=== PATIENT | male | born 1945 | race Caucasian/White ===

== ENCOUNTER 2016-11-20 09:33 | Emergency (ER) | payer MEDICARE, OTHER ==
[~2016-11-20] VITALS: Ht 172.7 cm; Wt 75.7 kg
[~2016-11-20 09:33] MED LIST: AC500T PO; ALLERGY SHOTS INJ; ASPI-875 PO; CETI10TA17 PO; D ME PO; DCS100C PO; DICY10CA12 PO; DIPH25TA82 PO; ENAL10TA PO; EZET10TA5 PO; FLUT16SP22 NSEACH; IBUP-30 PO; MELA1TAB16 PO; METF-380 PO; METO25TA2 PO; NS.65NA45 NSEACH; OMEP20CA12 PO; SULF1TAB34 PO; ZOLP10TA5 PO; [UNRECOGNIZED DRUG - OTHER] INJ; [UNRECOGNIZED DRUG - OTHER] NS; [UNRECOGNIZED DRUG - OTHER] PO
[2016-11-20 10:00] LABS: BASOPHILS % (AUTO) 0 % (0-10); EOSINOPHILS # (AUTO) 0.1 10^3/uL (0.0-0.3); EOSINOPHILS % (AUTO) 1 % (0-10); LYMPHOCYTES # (AUTO) 0.9 X 10^3 (1.0-4.0); LYMPHOCYTES % (AUTO) 11 % (12-44); MEAN CORPUSCULAR HEMOGLOBIN 25 PG (25-34); MEAN CORPUSCULAR HGB CONC 32 G/DL (32-36); MEAN CORPUSCULAR VOLUME 78 FL (80-99); MEAN PLATELET VOLUME 11.4 FL (7.4-10.4); MONOCYTES # (AUTO) 0.8 X 10^3 (0.0-1.0); MONOCYTES % (AUTO) 9 % (0-12); NEUTROPHILS # (AUTO) 6.7 X 10^3 (1.8-7.8); NEUTROPHILS % (AUTO) 79 % (42-75); PLATELET COUNT 185 10^3/uL (130-400); RED BLOOD COUNT 4.48 10^6/uL (4.35-5.85); RED CELL DISTRIBUTION WIDTH 16.1 % (10.0-14.5); WHITE BLOOD COUNT 8.5 10^3/uL (4.3-11.0)
[2016-11-20] MEDS ORDERED: fentaNYL INJECTION 100 MCG/2 ML AMP IVP ONE (10:00)
[2016-11-20 10:01] LABS: KETONES,URINE 1+ (NEGATIVE); LEUKOCYTE ESTERASE ,URINE 1+ (NEGATIVE); NITRITE,URINE NEGATIVE (NEGATIVE); PH,URINE 5 (5-9); PROTEIN,URINE 2+ (NEGATIVE); UROBILINOGEN,URINE 1 MG/DL (NORMAL)
[2016-11-20 10:22] LABS: ALBUMIN 4.4 G/DL (3.2-4.5); BILIRUBIN,TOTAL 0.4 MG/DL (0.1-1.0); CALCIUM 9.2 MG/DL (8.5-10.1); CREATININE SERUM 1.31 MG/DL (0.60-1.30); POTASSIUM 4.9 MMOL/L (3.6-5.0); TOTAL PROTEIN 6.7 G/DL (6.4-8.2)
[2016-11-20] MEDS ORDERED: NS IV 1000 ML 1,000 ML IV ONE (10:26)
[2016-11-20 10:29] LABS: BILIRUBIN,URINE 1+ (NEGATIVE); WBC,URINE 0-2 /HPF
[2016-11-20 10:30] LABS: HYALINE CASTS, URINE 0-2 /LPF; SQUAMOUS EPITHELIAL CELL,UR 0-2 /HPF
[2016-11-20] MEDS ORDERED: KETOROLAC 30 MG/ML VIAL IVP ONE (10:45)
--- NOTE | 2016-11-20 11:47 | Diagnostic Imaging Report ---
PROCEDURE: CT urinary tract, rule out kidney stone. TECHNIQUE: Multiple contiguous axial images were obtained through the abdomen and pelvis without the use of intravenous contrast. INDICATION: Left flank pain, hematuria. COMPARISON: 01/08/2012. DISCUSSION: The visualized lung bases are unremarkable. Normal heart size. No pleural or pericardial fluid. The gallbladder is contracted. The liver, stomach, pancreas, spleen, and adrenal glands are unremarkable. Large left renal cyst appears grossly stable though incompletely evaluated due to lack of IV contrast. Interval development of nonobstructing left renal calculi measuring up to 4 mm. Mild left hydronephrosis and hydroureter secondary to a 2 mm partially obstructing stone at the left ureterovesical junction. Urinary bladder is mostly decompressed. No hydronephrosis on the right. Right parapelvic cysts are stable. No ascites or pathologically enlarged lymph nodes identified. Sigmoid diverticulosis is stable. No CT evidence for diverticulitis. No obstruction or free air. Atherosclerotic plaques again noted throughout the abdominal aorta. No acute osseous abnormality. IMPRESSION: 1. 2 mm partially obstructing stone within the left ureterovesical junction contributing to mild left hydronephrosis and hydroureter. 2. Additional nonobstructing left renal calculi measuring up to 4 mm. 3. Diverticulosis. Dictated by: Dictated on workstation # [id number]
--- NOTE | 2016-11-20 12:13 | Diagnostic Imaging Report ---
EXAMINATION: KUB. INDICATION: Left-sided kidney stone. COMPARISON: 01/08/2012. FINDINGS: There is a 6 mm left flank calcification, compatible with a left kidney stone. A tiny distal left ureteric stone may correlate with a 2 mm density seen on the left side of the pelvis. The right flank and right ureteric course demonstrate no definite stone. IMPRESSION: There is a 6 mm left kidney stone. A 2 mm calcification on the left side of the pelvis probably correlates with the distal ureteric stone seen on the concurrent CT scan. Dictated by: Dictated on workstation # [id number]
[2016-11-20] MEDS ORDERED: OXYC-197 PO (12:16)
--- NOTE | 2016-11-20 12:16 | ED General ---
General Chief Complaint: Back Problems Stated Complaint: LEFT FLANK PAIN Nursing Triage Note: L FLANK PAIN ONSET 0330 THIS AM, SIMILAR TO PREVIOUS KIDNEY STONES Nursing Sepsis Screen: No Definite Risk Source of Information: Patient Exam Limitations: No Limitations History of Present Illness Time Seen by Provider: 09:40 Initial Comments This 71-year-old gentleman presents to the emergency room with left flank pain that started around 03:00. He has a history of renal stones. He took hydrocodone 2 without much improvement. He has appointment with Dr. Rockwell later today but pain was too intense to wait. He has had some recent weakness as well. No fever. No urinary changes. Denies nausea or vomiting. Allergies and Home Medications Allergies Coded Allergies: Levofloxacin (Verified Allergy, 05/06/13) Sjmedpp-Xek-Ikf Reductase Inhibitor (Verified Allergy, 05/06/13) metoclopramide HCl (Verified Allergy, 05/06/13) Home Medications Acetaminophen 500 Mg Tablet 1,000 MG PO BID PRN PRN (Reported) TAKES 2 (500MG) TABLETS TWICE DAILY NEEDED FOR PAIN Aspirin 81 Mg Tablet.dr 81 MG PO HS (Reported) Cephalexin 500 Mg Capsule #30 500 MG PO TID Prescribed by: ARLENE SMITH on 11/20/16 1228 Dicyclomine Hcl 10 Mg Capsule 10 MG PO QID PRN PRN (Reported) NEEDED FOR GASTRO PARESIS Docusate Sodium 100 Mg Capsule 100 MG PO QID PRN PRN (Reported) NEEDED FOR CONSTIPATION Enalapril Maleate 10 Mg Tablet 5 MG PO BID (Reported) Ezetimibe 10 Mg Tablet 10 MG PO HS (Reported) Fluticasone Propionate 16 Gm Naspr 1 SPRAY NSEACH BID (Reported) Ibuprofen 200 Mg Tablet 600 MG PO TID PRN PRN (Reported) TAKES UP TO 3 (200MG) TABLETS THREE TIMES DAILY NEEDED FOR PAIN Melatonin/Pyridoxine Hcl (B6) 1 Each Tablet 10 MG PO HS PRN PRN (Reported) TAKES 2 (5MG) TABLETS AT BEDTIME NEEDED FOR SLEEP Metformin Hcl 1,000 Mg Tablet 500 MG PO BID (Reported) TAKES 1/2 (1000MG) TABLET TWICE DAILY Omeprazole 20 Mg Capsule.dr 40 MG PO BID (Reported) Oxycodone HCl/Acetaminophen 1 Each Tablet #10 1-2 EACH PO Q6H PRN PRN PAIN Prescribed by: ARLENE SMITH on 11/20/16 1216 Sodium Chloride 45 Ml Btl 2 SPRAY NSEACH QID PRN PRN (Reported) NEEDED FOR DRYNESS Constitutional: see HPI EENTM: no symptoms reported Respiratory: no symptoms reported Cardiovascular: no symptoms reported Gastrointestinal: no symptoms reported Genitourinary: see HPI Musculoskeletal: no symptoms reported Skin: no symptoms reported Psychiatric/Neurological: No Symptoms Reported Hematologic/Lymphatic: No Symptoms Reported Past Kyctmkg-Qwyvks-Ukawhc Hx Patient Social History Alcohol Use: Denies Use Recreational Drug Use: No Smoking Status: Never a Smoker Recent Foreign Travel: No Contact w/Someone Who Travel: No Recent Infectious Disease Expo: No Recent Hopitalizations: No Physical Abuse Screen: No Sexual Abuse: No Immunizations Up To Date Date of Pneumonia Vaccine: May 01, 2013 Date of Influenza Vaccine: Aug 04, 2012 Surgeries HX Surgeries: Yes (TURP,SLEEP APNEA,SINUS SURGERY-INVERTED PAPALOMA, COLONOSCOPY) Surgeries: CABG, Orthopedic Respiratory Hx Respiratory Disorders: Yes Respiratory Disorders: Sleep Apnea Cardiovascular Hx Cardiac Disorders: Yes (CABG,STENTS) Cardiac Disorders: Coronary Artery Disease, Hypertension Neurological Hx Neurological Disorders: No Reproductive System Hx Reproductive Disorders: No Genitourinary Hx Genitourinary Disorders: Yes Genitourinary Disorders: Kidney Stones Gastrointestinal Hx Gastrointestinal Disorders: Yes (gastroperesis, ) Gastrointestinal Disorders: Irritable Bowel Musculoskeletal Hx Musculoskeletal Disorders: No Endocrine Hx Endocrine Disorders: Yes HEENT HX ENT Disorders: No Cancer Hx Cancer: No Psychosocial Hx Psychiatric Problems: No Integumentary HX Skin/Integumentary Disorder: No Blood Transfusions Hx Blood Disorders: No Adverse Reaction to a Blood Tr: No Physical Exam Vital Signs Vital Sign - Last 12Hours 11/20/16 09:34 Temp 96.5 Pulse 60 Resp 18 B/P 119/74 Pulse Ox 99 Capillary Refill : Less Than 3 Seconds General Appearance: No Apparent Distress WD/WN HEENT: PERRL/EOMI Normal ENT Inspection Neck: Normal Inspection Respiratory: Lungs Clear Normal Breath Sounds No Accessory Muscle Use No Respiratory Distress Cardiovascular: Regular Rate, Rhythm No Edema No Murmur Gastrointestinal: Normal Bowel Sounds Soft Tenderness (Flank) Back: Normal Inspection No CVA Tenderness Extremity: Normal Inspection No Pedal Edema Neurologic/Psychiatric: Alert Oriented x3 No Motor/Sensory Deficits Normal Mood/Affect cookie padder II-XII Norm as Tested Skin: Normal Color Warm/Dry Progress/Results/Core Measures Results/Orders Lab Results Laboratory Tests Test 11/20/16 09:40 11/20/16 09:52 Range/Units Alanine Aminotransferase (ALT/SGPT) 18 0-55 U/L Albumin 4.4 3.2-4.5 G/DL Alkaline Phosphatase 47 40-136 U/L Anion Gap 12 5-14 MMOL/L Aspartate Amino Transf (AST/SGOT) 13 5-34 U/L BUN/Creatinine Ratio 13 Basophils # (Auto) 0.0 0.0-0.1 10^3/uL Basophils (%) (Auto) 0 0-10 % Blood Urea Nitrogen 17 7-18 MG/DL Calcium Level 9.2 8.5-10.1 MG/DL Carbon Dioxide Level 22 21-32 MMOL/L Chloride Level 103 98-107 MMOL/L Creatinine 1.31 H 0.60-1.30 MG/DL Eosinophils # (Auto) 0.1 0.0-0.3 10^3/uL Eosinophils (%) (Auto) 1 0-10 % Estimat Glomerular Filtration Rate 54 Glucose Level 187 H 70-105 MG/DL Hematocrit 35 L 40-54 % Hemoglobin 11.2 L 13.3-17.7 G/DL Lymphocytes # (Auto) 0.9 L 1.0-4.0 X 10^3 Lymphocytes (%) (Auto) 11 L 12-44 % Mean Corpuscular Hemoglobin 25 25-34 PG Mean Corpuscular Hemoglobin Concent 32 32-36 G/DL Mean Corpuscular Volume 78 L 80-99 FL Mean Platelet Volume 11.4 H 7.4-10.4 FL Monocytes # (Auto) 0.8 0.0-1.0 X 10^3 Monocytes (%) (Auto) 9 0-12 % Neutrophils # (Auto) 6.7 1.8-7.8 X 10^3 Neutrophils (%) (Auto) 79 H 42-75 % Platelet Count 185 130-400 10^3/uL Potassium Level 4.9 3.6-5.0 MMOL/L Red Blood Count 4.48 4.35-5.85 10^6/uL Red Cell Distribution Width 16.1 H 10.0-14.5 % Sodium Level 137 135-145 MMOL/L Total Bilirubin 0.4 0.1-1.0 MG/DL Total Protein 6.7 6.4-8.2 G/DL White Blood Count 8.5 4.3-11.0 10^3/uL Urine Bacteria TRACE /HPF Urine Bilirubin 1+ H NEGATIVE Urine Casts PRESENT /LPF Urine Clarity SLIGHTLY CLOUDY Urine Color YELLOW Urine Crystals NONE /LPF Urine Culture Indicated NO Urine Glucose (UA) 2+ H NEGATIVE Urine Hyaline Casts 0-2 H /LPF Urine Ketones 1+ H NEGATIVE Urine Leukocyte Esterase 1+ H NEGATIVE Urine Mucus MODERATE H /LPF Urine Nitrite NEGATIVE NEGATIVE Urine Protein 2+ H NEGATIVE Urine RBC >100 H /HPF Urine RBC (Auto) 5+ H NEGATIVE Urine Specific Orange 1.025 H 1.016-1.022 Urine Squamous Epithelial Cells 0-2 /HPF Urine Urobilinogen 1 NORMAL MG/DL Urine WBC 0-2 /HPF Urine pH 5 5-9 My Orders Orders-ARLENE QUEZADA MD Ua Culture If Indicated (11/20/16 09:44) Fentanyl Injection (Sublimaze Injection (11/20/16 10:00) Cbc With Automated Diff (11/20/16 09:55) Comprehensive Metabolic Panel (11/20/16 09:55) Ns Iv 1000 Ml (Sodium Chloride 0.9%) (11/20/16 10:26) Ct Abd/Pelvis Wo(Kidney Stone) (11/20/16 10:38) Ketorolac Injection (Toradol Injection) (11/20/16 10:45) Abdomen/Kub 1view (11/20/16 11:46) Medications Given in ED Vital Signs/I&O Blood Pressure Mean: 89 Progress Note : Progress Note Patient was initially treated with fentanyl. A liter of IV fluids was initiated. UA returned with a large quantity of RBC. CT scan was ordered revealing a small distal left ureteral stone. Patient was additionally treated with Toradol. Dr. Rockwell stop by the patient's room to visit with him. Diagnostic Imaging Diagonstic Imaging: CT Plain Films/CT/US/NM/MRI: abdomen, pelvis Comments CT abdomen and pelvis viewed by me and report reviewed. See report below: NAME: [facility] REC#: [id number] PT STATUS: REG ER : 1945 PHYSICIAN: ARLENE QUEZADA MD ADMIT DATE: 11/20/16/ER Draft Date of Exam:11/20/16 CT ABD/PELVIS WO(KIDNEY STONE) PROCEDURE: CT urinary tract, rule out kidney stone. TECHNIQUE: Multiple contiguous axial images were obtained through the abdomen and pelvis without the use of intravenous contrast. INDICATION: Left flank pain, hematuria. COMPARISON: 01/08/2012. DISCUSSION: The visualized lung bases are unremarkable. Normal heart size. No pleural or pericardial fluid. The gallbladder is contracted. The liver, stomach, pancreas, spleen, and adrenal glands are unremarkable. Large left renal cyst appears grossly stable though incompletely evaluated due to lack of IV contrast. Interval development of nonobstructing left renal calculi measuring up to 4 mm. Mild left hydronephrosis and hydroureter secondary to a 2 mm partially obstructing stone at the left ureterovesical junction. Urinary bladder is mostly decompressed. No hydronephrosis on the right. Right parapelvic cysts are stable. No ascites or pathologically enlarged lymph nodes identified. Sigmoid diverticulosis is stable. No CT evidence for diverticulitis. No obstruction or free air. Atherosclerotic plaques again noted throughout the abdominal aorta. No acute osseous abnormality. IMPRESSION: 1. 2 mm partially obstructing stone within the left ureterovesical junction contributing to mild left hydronephrosis and hydroureter. 2. Additional nonobstructing left renal calculi measuring up to 4 mm. 3. Diverticulosis. Dictated on workstation # [id number] Dict: 11/20/16 1137 Trans: 11/20/16 1146 [facility] [id number] Interpreted by: DELMY BARBOZA MD Departure Impression Impression: Primary Impression: Left ureteral stone Additional Impressions: Left flank pain Hydronephrosis, left Disposition: HOME, SELF-CARE Condition: Improved Departure-Patient Inst. Decision time for Depature: 12:00 Referrals: LYNETTE CONWAY DO (PCP/Family) Primary Care Physician Patient Instructions: Kidney Stones in Adults Add. Discharge Instructions: Drink plenty of clear liquids. Complete your antibiotic as prescribed to prevent infection. You may use the hydrocodone previously prescribed to you or replaced with Percocet as prescribed. Return to the ER if symptoms worsen. Strain your urine and present any stones collected to your urologist. You may follow-up with Dr. Rockwell or the urologist of your choice. All discharge instructions reviewed with patient and/or family. Voiced understanding. Scripts Cephalexin (Keflex)500 Mg [id number] Mg PO TID #30 CAP Prov:ARLENE QUEZADA MD 11/20/16 Oxycodone HCl/Acetaminophen (Percocet 5-325 mg Tablet)1 Each Tablet1-2 Each PO Q6H PRN PAIN #10 TAB Prov:ARLENE QUEZADA MD 11/20/16 ARLENE QUEZADA MD Nov 20, 2016 12:16 ARLEEN QUEZADA MD Nov 20, 2016 12:16
[2016-11-20 12:27] VITALS: BP 113/65
[2016-11-20] MEDS ORDERED: CEPH-507 PO (12:28)
== END 2016-11-20 12:27 | disposition home or self-care (01) ==
LOC: EDUNIT# 09:33 → ER 09:35
DX: N13.2 Hydronephrosis with renal and ureteral calculous obstruction (principal); K57.30 Diverticulosis of large intestine without perforation or abscess without bleeding; E11.9 Type 2 diabetes mellitus without complications; Z79.82 Long term (current) use of aspirin; Z79.899 Other long term (current) drug therapy; Z79.84 Long term (current) use of oral hypoglycemic drugs; Z95.1 Presence of aortocoronary bypass graft; Z95.5 Presence of coronary angioplasty implant and graft
CPT/HCPCS: 36415; 74000; 74176; 80053; 81000; 85025; 96361; 96374; 96375

== ENCOUNTER → 2017-01-24 | Outpatient (CLI) | payer MEDICARE, OTHER ==
[~2017-01-24] MED LIST changes: +CEPH-507 PO; +CLOP75TA28 PO; +DOXA4TAB2 PO; +ESCI10TA55 PO; +ESZO3TAB38 PO; +LORA1TAB59 PO; +METF1000 PO; +OXYC-197 PO; +PANT40TA3 PO; +PRAV20TA3 PO
--- NOTE | 2017-01-27 13:15 | ECHOCARDIOGRAPHY REPORT ---
PROCEDURE PHYSICIAN: APRIL STEVENS DATE OF PROCEDURE: 01/24/2017 TWO DIMENSIONAL ECHOCARDIOGRAM REPORT PRIMARY PHYSICIAN: Dr. Dent OTHER PHYSICIAN: REFERRING PHYSICIAN: ORDERING PHYSICIAN: Dr. Stevens INDICATION FOR THE PROCEDURE: Tiredness, coronary artery disease, shortness of breath MEASUREMENTS DERIVED VALUES LV DIAMETER (LAX) NORMALS NORMALS Diastolic 4.1 (3.6-5.2) Eject. Fract. (60%+/-6%) Systolic (2.3-3.9) Diastolic Vol. % Shortening (0.22-0.42) Systolic Vol. Aortic Root 3.6 IVS THICKNESS Diastolic 1.2 (0.6-1.1) LVPW THICKNESS Diastolic 1.2 (0.6-1.1) LA DIAMETER Systolic 4.2 (2.1-3.7) DESCRIPTION: Two-dimension echocardiography shows well preserved global left ventricular systolic function with an ejection fraction of approximately 55 to 60%. Aortic, mitral and tricuspid valve leaflets show good leaflet excursion. There is no significant pericardial effusion. Doppler imaging shows trivial pulmonic and tricuspid regurgitation. Pulmonary artery systolic pressure is estimated to be approximately 25 to 30 mmHg. There is also trivial to mild mitral regurgitation. There is no Doppler evidence of any significant valvular stenosis. There is no evidence of any significant intracardiac shunt on this transthoracic echocardiographic study. Inferior vena cava is of normal size and exhibits normal inspiratory collapse. CONCLUSION: 1. Normal global left ventricular systolic function with an ejection fraction of 55 to 60%. 2. Mild to moderate enlargement of the left atrium. 3. Trivial to mild mitral, tricuspid and pulmonic regurgitation. 4. Pulmonary artery systolic pressure is estimated to be 25 to 30 mmHg. 5. No evidence of any significant valvular stenosis. Job ID: [id number] Dictated Date: 01/26/2017 12:06:34 Research Epidemiologist Date: 01/27/2017 13:08:26 / ashwin
== END ==
LOC: CARD 11:35
PROVIDERS: ATTEND Internal Medicine Cardiovascular Disease
DX: R53.83 Other fatigue (principal); R06.02 Shortness of breath; I25.10 Atherosclerotic heart disease of native coronary artery without angina pectoris; I65.23 Occlusion and stenosis of bilateral carotid arteries; E11.9 Type 2 diabetes mellitus without complications; K21.9 Gastro-esophageal reflux disease without esophagitis; E78.4 Other hyperlipidemia; G47.33 Obstructive sleep apnea (adult) (pediatric)
CPT/HCPCS: 93306

== ENCOUNTER → 2017-01-29 | Outpatient (CLI) | payer MEDICARE, OTHER ==
[~2017-01-29] MED LIST changes: +CATHETER FLUSH 10 ML SYR IV PRN
[2017-01-29 08:56] VITALS: BP 112/69
--- NOTE | 2017-01-30 08:42 | STRESS TEST ---
PROCEDURE PHYSICIAN: APRIL STEVENS DATE OF PROCEDURE: 01/29/2017 RESTING AND POST EXERCISE TECHNETIUM 99M TETROFOSMIN SPECT CT IMAGING ORDERING PHYSICIAN: Dr. Stevens. PRIMARY PHYSICIAN: Dr. Dent. CLINICAL DIAGNOSES: 1. Coronary artery disease. 2. Diabetes. 3. Tiredness. Baseline images were carried out after injection of 10.91 mCi technetium 99m tetrofosmin. This was followed by exercise on a treadmill. Duglas protocol was employed. Heart rate and blood pressure responses to exercise were normal. At peak exercise, there is considerable baseline artifact but there does not appear to be significant ST segment depression. After the patient had attained more than 85% of maximum predicted heart rate, 29.8 mCi of technetium 99m tetrofosmin were injected and the exercise was continued for another minute. The test was stopped on account of fatigue. He did not report symptoms. There was no significant exercise-induced arrhythmia. Review of images at rest and following stress, does not indicate any significant perfusion defects consistent with significant myocardial ischemia or infarction. Gated images show normal global left ventricular systolic function with normal regional wall motion. Left ventricular ejection fraction is calculated to be 63%. Left ventricular end-diastolic volume is 55 mL. TID is absent (0.96). CONCLUSIONS: 1. No evidence of any significant myocardial ischemia or infarction on this study. 2. Normal regional wall motion. 3. Normal global left ventricular systolic function with a calculated ejection fraction of 63%. 4. Normal left ventricular cavity size. Job ID: [id number] Dictated Date: 01/29/2017 17:21:57 Drill Rig Operator Date: 01/30/2017 08:37:22 / harley
== END ==
LOC: CARD 07:16
PROVIDERS: ATTEND Internal Medicine Cardiovascular Disease
DX: R06.02 Shortness of breath (principal); I25.10 Atherosclerotic heart disease of native coronary artery without angina pectoris; I65.23 Occlusion and stenosis of bilateral carotid arteries; E78.4 Other hyperlipidemia; E11.9 Type 2 diabetes mellitus without complications; R53.83 Other fatigue; K21.9 Gastro-esophageal reflux disease without esophagitis; G47.33 Obstructive sleep apnea (adult) (pediatric)
CPT/HCPCS: 78452; 93017

== ENCOUNTER 2017-03-12 16:58 | Inpatient (IN) | payer MEDICARE, OTHER ==
[~2017-03-12] VITALS: Ht 172.7 cm; Wt 76.0 kg
[2017-03-12] VITALS (13 sets, daily range): BP systolic 143–166; BP diastolic 81–95
[~2017-03-12 16:58] MED LIST changes: -CATHETER FLUSH 10 ML SYR IV PRN; -CLOP75TA28 PO; -DOXA4TAB2 PO; -ESCI10TA55 PO; -ESZO3TAB38 PO; -LORA1TAB59 PO; -METF1000 PO; -PANT40TA3 PO; -PRAV20TA3 PO
--- NOTE | 2017-03-12 18:05 | ED Neurological Problem ---
General Chief Complaint: Neuro-Stroke Like Symptoms Stated Complaint: STROKE LIKE SYMPTOMS Nursing Triage Note: TO ED PER EMS FROM [facility] . REPORT FROM [facility] IS THAT PATIENT WENT OUT SIDE AROUND 8A WHEN HE WENT BACK IN AT [facility] NOTICED SPEECH GARBLED HE ATE TOOK ASA SHOWERED THAN WENT TO [facility] NOTICED GARBLED SPEECH. BEFORE TRASFER SPEECH RESOLVED. [facility] ALSO REPORTS THAT HGB OF 9.4 AND POSITIVE HEMOCULT. Nursing Sepsis Screen: No Definite Risk Source: patient, family, RN/MD, EMS Exam Limitations: no limitations History of Present Illness Time seen by provider: 17:01 Initial Comments Here as a transfer from [facility] for concerns related to transient ischemic attack and concerns related to the fact that the patient has had 3 g hemoglobin drop. Patient reports that between 11 a.m. and 12 noon today that he had onset of word searching speech. He noted at around that time he felt like that his blood sugar had gotten low. He was outside spraying for weeds and it did not stop him from continuing his activity. His noted at about noon that he had the difficulty with speech. He did take an aspirin and get cleaned up before presenting to [facility] for evaluation. There he was evaluated and had labs, CT and chest x-ray done. No acute findings noted on CT or chest x-ray. Labs did note hemoglobin of 9.4 today. Patient reports that over the last week he has had some lower abdominal discomfort and had darker stools. He was Hemoccult positive at outside facility. This challenge to workup as it was likely TIA. He does have recent ultrasound of the carotids but results are unknown. He also has recent ultrasound of the aorta. He denies chest pain, breathing problems, nausea, vomiting or other concerns. There is no focal weakness noted or reported. Timing/Duration: 4-6 hours Severity: mild Associated Symptoms: No confusion, No fever/chills, No loss of consciousness, No nausea/vomiting, No paresthesia, No seizures, No slurred speech, No trouble walking, No vision changes, No weakness Allergies and Home Medications Allergies Coded Allergies: Dfhktry-Aaw-Fto Reductase Inhibitor (Verified Allergy, Unknown, 01/29/17) cephalexin (Verified Allergy, Unknown, 03/12/17) ciprofloxacin (Verified Allergy, Unknown, 03/12/17) citalopram (Verified Allergy, Unknown, 03/12/17) levofloxacin (Verified Allergy, Unknown, 01/29/17) metoclopramide HCl (Verified Allergy, Unknown, 01/29/17) sulfamethoxazole (Verified Allergy, Unknown, 03/12/17) trimethoprim (Verified Allergy, Unknown, 03/12/17) Uncoded Allergies: TRAZDONE (Allergy, Unknown, 03/12/17) Home Medications Acetaminophen 500 Mg Tablet, 1,000 MG PO BID PRN, (Reported) TAKES 2 (500MG) TABLETS TWICE DAILY NEEDED FOR PAIN Aspirin 81 Mg Tablet.dr, 81 MG PO HS, (Reported) Cephalexin 500 Mg Capsule, 500 MG PO TID, #30 Prescribed by: ARLENE SMITH on 11/20/16 1228 Dicyclomine Hcl 10 Mg Capsule, 10 MG PO QID PRN, (Reported) NEEDED FOR GASTRO PARESIS Docusate Sodium 100 Mg Capsule, 100 MG PO QID PRN, (Reported) NEEDED FOR CONSTIPATION Enalapril Maleate 10 Mg Tablet, 5 MG PO BID, (Reported) Ezetimibe 10 Mg Tablet, 10 MG PO HS, (Reported) Fluticasone Propionate 16 Gm Naspr, 1 SPRAY NSEACH BID, (Reported) Ibuprofen 200 Mg Tablet, 600 MG PO TID PRN, (Reported) TAKES UP TO 3 (200MG) TABLETS THREE TIMES DAILY NEEDED FOR PAIN Melatonin/Pyridoxine Hcl (B6) 1 Each Tablet, 10 MG PO HS PRN, (Reported) TAKES 2 (5MG) TABLETS AT BEDTIME NEEDED FOR SLEEP Metformin Hcl 1,000 Mg Tablet, 500 MG PO BID, (Reported) TAKES 1/2 (1000MG) TABLET TWICE DAILY Omeprazole 20 Mg Capsule.dr, 40 MG PO BID, (Reported) Oxycodone HCl/Acetaminophen 1 Each Tablet, 1-2 EACH PO Q6H PRN for PAIN, #10 Prescribed by: ARLENE SMITH on 11/20/16 1216 Sodium Chloride 45 Ml Btl, 2 SPRAY NSEACH QID PRN, (Reported) NEEDED FOR DRYNESS Constitutional: no symptoms reported Eyes: No Symptoms Reported Ears, Nose, Mouth, Throat: no symptoms reported Respiratory: no symptoms reported Cardiovascular: No chest pain, No edema, No palpitations Gastrointestinal: see HPI, abdominal pain, other (dark stools) Genitourinary: no symptoms reported Musculoskeletal: no symptoms reported Skin: no symptoms reported Psychiatric/Neurological: See HPI, Denies Unable to Move Lower Ext, Denies Unable to Move Upper Ext, Denies Weakness Endocrine: No Symptoms Reported All Other Systems Reviewed Negative Unless Noted: Yes Past Dmgqfpx-Fwkehd-Tzmefd Hx Patient Social History Alcohol Use: Denies Use Recreational Drug Use: No Smoking Status: Never a Smoker Recent Infectious Disease Expo: No Recent Hopitalizations: No Immunizations Up To Date Date of Pneumonia Vaccine: May 01, 2013 Date of Influenza Vaccine: Aug 04, 2012 Surgeries HX Surgeries: Yes (TURP,SLEEP APNEA,SINUS SURGERY-INVERTED PAPALOMA, COLONOSCOPY) Surgeries: CABG, Orthopedic Respiratory Hx Respiratory Disorders: Yes Respiratory Disorders: Sleep Apnea Cardiovascular Hx Cardiac Disorders: Yes (CABG,STENTS) Cardiac Disorders: Coronary Artery Disease, Hypertension Neurological Hx Neurological Disorders: No Reproductive System Hx Reproductive Disorders: No Genitourinary Hx Genitourinary Disorders: Yes Genitourinary Disorders: Kidney Stones Gastrointestinal Hx Gastrointestinal Disorders: Yes (gastroperesis, ) Gastrointestinal Disorders: Irritable Bowel Musculoskeletal Hx Musculoskeletal Disorders: No Endocrine Hx Endocrine Disorders: Yes HEENT HX ENT Disorders: No Cancer Hx Cancer: No Psychosocial Hx Psychiatric Problems: No Integumentary HX Skin/Integumentary Disorder: No Blood Transfusions Hx Blood Disorders: No Adverse Reaction to a Blood Tr: No Reviewed Nursing Assessment Reviewed/Agree w Nursing PMH: Yes Family Medical History Significant Family History: No Pertinent Family Hx Physical Exam Vital Signs Vital Sign - Last 12Hours 03/12/17 16:58 Temp 98.2 Pulse 73 Resp 18 B/P (MAP) 158/87 Pulse Ox 98 O2 Delivery Room Air Capillary Refill : Less Than 3 Seconds General Appearance: WD/WN, no apparent distress HEENT: PERRL/EOMI, pharynx normal Neck: full range of motion, supple Respiratory: lungs clear, normal breath sounds Cardiovascular: regular rate, rhythm, no murmur Peripheral Pulses: 2+ Dorsalis Pedis (R), 2+ Left Dors-Pedis (L), 2+ Radial Pulses (R), 2+ Radial Pulses (L) Gastrointestinal: non tender, soft Back: normal inspection, no CVA tenderness, no vertebral tenderness Extremities: non-tender, normal inspection Neurologic/Psychiatric: alert, oriented x 3, No abnormal gait, other (gait steady) Crainal Nerves: normal hearing, normal speech, PERRL Coordination/Gait: normal finger to nose, normal gait Motor/Sensory: no motor deficit, no sensory deficit, no pronator drift Skin: normal color, warm/dry Stroke Onset of Symptoms Date of Onset of Symptoms: March 12, 2017 NIH Stroke Scale Assessment Level of Consciousness: 0=Alert Level of Consciousness-Questio: 0=Answers both month/age LOC Commands: 0=Performs both tasks Gaze: 0=Normal Visual Beavers: 0=No visual loss Facial Movement (Facial Paresi: 0=Normal symmetrical mnt Motor Function-Arms Right: 0=No drift Motor Function-Arms Left: 0=No drift Motor Function-Legs Right: 0=No drift Motor Function-Legs Left: 0=No drift Limb Ataxia: 0=Absent Sensory: 0=Normal:no loss Best Language: 0=No aphasia Dysarthria: 0=Normal Extinction & Inattention: 0=No abnormality Stroke Thrombolytic Exclusion Age 18 or Over: Yes Progress/Results/Core Measures Results/Orders My Orders Vital Signs/I&O Vital Sign - Last 12Hours 03/12/17 16:58 Temp 98.2 Pulse 73 Resp 18 B/P (MAP) 158/87 Pulse Ox 98 O2 Delivery Room Air Blood Pressure Mean: 110 Progress Note : Progress Note Seen and evaluated. Repeat stroke scale done and was 0. Reviewed EKG and labs from [facility]. Hemoglobin 9.4, hematocrit 29.7, white blood cell count 6.4 and platelets 204. Coags in normal range. Chemistries overall normal with creatinine of 1.23, sodium 140, potassium 4.0 and chloride 107. Magnesium 1.8. EKG shows sinus rhythm with normal axis. No evidence of ST elevation WI. I did discuss the case with Dr. PIERCE at 1717. He accepts patient for admission, inpatient status. We will consult Dr. Briones in the morning. EICU will be consulted for overnight management. We will initiate Protonix IV twice a day. MRI of the brain in the morning. Old records for carotids and aortic ultrasound from Dr. Stevens's office will be needed and Dr. Briones is consulted. I did discuss the case with Dr. Hare and he agrees with Protonix and will follow. Patient's current blood pressure is 152/91. Blood pressure management only if BP exceeds 220 systolic or 120 diastolic and can be managed. EICU. All of the findings, concerns and plan discussed with patient and family who agree with plan. Departure Communication Time/Spoke to Admitting Phy: 17:17 Time/Spoke to Consulting Physi: 18:09 Impression Impression: Primary Impression: Transient cerebral ischemia Qualified Codes: G45.9 - Transient cerebral ischemic attack, unspecified Additional Impression: GI bleed Qualified Codes: K92.2 - Gastrointestinal hemorrhage, unspecified Disposition: ADMITTED INPATIENT Condition: Stable Decision to Admit Reason: Admit from ER (General) Decision to Admit/Date: March 12, 2017 Time/Decision to Admit Time: 17:17 Departure-Patient Inst. Referrals: LYNETTE CONWAY DO (PCP/Family) Primary Care Physician TATA MORTON MD March 12, 2017 18:05
[2017-03-12] MEDS ORDERED: CATHETER FLUSH 10 ML SYR IV PRN (19:00)
[2017-03-12] MEDS: NS IV 1000 ML 1,000 ML IV SCH (19:39)
[2017-03-12] MEDS: PANTOPRAZOLE 40 MG/10 ML (PROTONIX) VIAL IV SCH (19:39)
[2017-03-12 20:14] LABS: MAGNESIUM 1.9 MG/DL (1.8-2.4); POTASSIUM 3.9 MMOL/L (3.6-5.0)
[2017-03-12] MEDS: MAGNESIUM 1 GM/100 ML IVPB 100 ML IV SCH (21:03)
[2017-03-12] MEDS: POTASSIUM CL 10MEQ/50ML IVPB 50 ML IV SCH ×2 (21:03→23:51)
[2017-03-12] MEDS: MAGNESIUM 1 GM/D5W 100 ML IVPB IV SCH (21:46)
[2017-03-12] MEDS: POTASSIUM CL 10 MEQ/50 ML IVPB (PRE-MIX) IV SCH ×2 (21:46→21:47)
[2017-03-13] VITALS (27 sets, daily range): BP systolic 103–159; BP diastolic 60–93
[2017-03-13] MEDS ORDERED: SIMETHICONE 40 MG/0.6 ML (MYLICON DROPS) 30 ML BTL PO PRN (02:45)
[2017-03-13] MEDS ORDERED: morphine INJ 4 MG/ML 1 ML (VIAL/SYRINGE) IVP PRN (02:45)
[2017-03-13 04:42] LABS: BASOPHILS % (AUTO) 1 % (0-10); EOSINOPHILS # (AUTO) 0.3 10^3/uL (0.0-0.3); EOSINOPHILS % (AUTO) 5 % (0-10); LYMPHOCYTES # (AUTO) 1.1 X 10^3 (1.0-4.0); LYMPHOCYTES % (AUTO) 21 % (12-44); MEAN CORPUSCULAR HEMOGLOBIN 25 PG (25-34); MEAN CORPUSCULAR HGB CONC 31 G/DL (32-36); MEAN CORPUSCULAR VOLUME 79 FL (80-99); MEAN PLATELET VOLUME 12.6 FL (7.4-10.4); MONOCYTES # (AUTO) 0.7 X 10^3 (0.0-1.0); MONOCYTES % (AUTO) 14 % (0-12); NEUTROPHILS # (AUTO) 3.1 X 10^3 (1.8-7.8); NEUTROPHILS % (AUTO) 59 % (42-75); PLATELET COUNT 177 10^3/uL (130-400); RED BLOOD COUNT 3.37 10^6/uL (4.35-5.85); RED CELL DISTRIBUTION WIDTH 15.4 % (10.0-14.5); WHITE BLOOD COUNT 5.3 10^3/uL (4.3-11.0)
[2017-03-13 04:45] LABS: ALANINE AMINOTRANSFERASE 9 U/L (0-55); ALBUMIN 3.6 G/DL (3.2-4.5); ANION GAP 8 MMOL/L (5-14); ASPARTATE AMINO TRANSFERASE 12 U/L (5-34); BILIRUBIN,TOTAL 0.4 MG/DL (0.1-1.0); BLOOD UREA NITROGEN 23 MG/DL (7-18); BUN/CREATININE RATIO 25; CARBON DIOXIDE 22 MMOL/L (21-32); CHLORIDE 111 MMOL/L (98-107); CREATININE SERUM 0.91 MG/DL (0.60-1.30); GFR ESTIMATED > 60; GLUCOSE 91 MG/DL (70-105); MAGNESIUM 2.1 MG/DL (1.8-2.4); PHOSPHORUS 3.6 MG/DL (2.3-4.7); POTASSIUM 4.1 MMOL/L (3.6-5.0); SODIUM 141 MMOL/L (135-145); TOTAL PROTEIN 5.6 G/DL (6.4-8.2)
[2017-03-13] MEDS: MAGNESIUM 1 GM/100 ML IVPB 100 ML IV SCH (05:13)
[2017-03-13] MEDS: POTASSIUM CL 10MEQ/50ML IVPB 50 ML IV SCH (05:13)
[2017-03-13] MEDS: KCL 20 MEQ TAB (K-DUR) PO SCH (05:14)
[2017-03-13] MEDS: NS IV 1000 ML 1,000 ML IV SCH (05:37)
[2017-03-13] MEDS ORDERED: NS IV 1000 ML 1,000 ML IV SCH ×2 (05:45)
[2017-03-13 06:26] LABS: ALBUMIN 3.4 G/DL (3.2-4.5)
[2017-03-13 06:28] LABS: INR 1.1 (0.8-1.4); PROTHROMBIN TIME PATIENT 14.3 SEC (12.2-14.7)
--- NOTE | 2017-03-13 06:29 | Pulmonary Consultation ---
History of Present Illness History of Present Illness Date of Consultation 03/13/17 06:24 Date of Admission History of Present Illness 71yo transferred here from [facility] secondary to suspected TIA and GIB. Pt had a 3g drop in hb while at [place]. Pt was having difficulty speaking which appeared to be getting worse. CT of head was negative. Pt has been having dark stool. While in the ICU patient became hypotensive and required several fluid boluses and blood transfusion. I am consulted for ICU management. Allergies and Home Medications Allergies Coded Allergies: Lmrkafu-Bjc-Zzz Reductase Inhibitor (Verified Allergy, Unknown, 01/29/17) cephalexin (Verified Allergy, Unknown, 03/12/17) ciprofloxacin (Verified Allergy, Unknown, 03/12/17) citalopram (Verified Allergy, Unknown, 03/12/17) levofloxacin (Verified Allergy, Unknown, 01/29/17) metoclopramide HCl (Verified Allergy, Unknown, 01/29/17) sulfamethoxazole (Verified Allergy, Unknown, 03/12/17) trimethoprim (Verified Allergy, Unknown, 03/12/17) Uncoded Allergies: TRAZDONE (Allergy, Unknown, 03/12/17) Home Medications Acetaminophen 500 Mg Tablet, 1,000 MG PO BID PRN, (Reported) TAKES 2 (500MG) TABLETS TWICE DAILY NEEDED FOR PAIN Aspirin 81 Mg Tablet.dr, 81 MG PO HS, (Reported) Cephalexin 500 Mg Capsule, 500 MG PO TID, #30 Prescribed by: ARLENE SMITH on 11/20/16 1228 Dicyclomine Hcl 10 Mg Capsule, 10 MG PO QID PRN, (Reported) NEEDED FOR GASTRO PARESIS Docusate Sodium 100 Mg Capsule, 100 MG PO QID PRN, (Reported) NEEDED FOR CONSTIPATION Enalapril Maleate 10 Mg Tablet, 5 MG PO BID, (Reported) Ezetimibe 10 Mg Tablet, 10 MG PO HS, (Reported) Fluticasone Propionate 16 Gm Naspr, 1 SPRAY NSEACH BID, (Reported) Ibuprofen 200 Mg Tablet, 600 MG PO TID PRN, (Reported) TAKES UP TO 3 (200MG) TABLETS THREE TIMES DAILY NEEDED FOR PAIN Melatonin/Pyridoxine Hcl (B6) 1 Each Tablet, 10 MG PO HS PRN, (Reported) TAKES 2 (5MG) TABLETS AT BEDTIME NEEDED FOR SLEEP Metformin Hcl 1,000 Mg Tablet, 500 MG PO BID, (Reported) TAKES 1/2 (1000MG) TABLET TWICE DAILY Omeprazole 20 Mg Capsule.dr, 40 MG PO BID, (Reported) Oxycodone HCl/Acetaminophen 1 Each Tablet, 1-2 EACH PO Q6H PRN for PAIN, #10 Prescribed by: ARLENE SMITH on 11/20/16 1216 Sodium Chloride 45 Ml Btl, 2 SPRAY NSEACH QID PRN, (Reported) NEEDED FOR DRYNESS Past Kxfiipy-Ehgurr-Dqiwfx Hx Patient Social History Alcohol Use: Denies Use Recreational Drug Use: No Smoking Status: Never a Smoker Recent Foreign Travel: No Contact w/Someone Who Travel: No Recent Infectious Disease Expo: No Recent Hopitalizations: No Physical Abuse Screen: No Sexual Abuse: No Immunizations Up To Date PED Vaccines UTD: No Date of Pneumonia Vaccine: May 01, 2013 Date of Influenza Vaccine: Aug 04, 2012 Seasonal Allergies Seasonal Allergies: Yes (had shots for 5 years) Surgeries HX Surgeries: Yes (TURP,SLEEP APNEA,SINUS SURGERY-INVERTED PAPALOMA, COLONOSCOPY) Surgeries: CABG, Orthopedic Respiratory Hx Respiratory Disorders: Yes Respiratory Disorders: Sleep Apnea Cardiovascular Hx Cardiac Disorders: Yes (CABG,STENTS) Cardiac Disorders: Coronary Artery Disease, Hypertension Neurological Hx Neurological Disorders: No Reproductive System Hx Reproductive Disorders: No Genitourinary Hx Genitourinary Disorders: Yes Genitourinary Disorders: Kidney Stones Gastrointestinal Hx Gastrointestinal Disorders: Yes (gastroperesis, ) Gastrointestinal Disorders: Irritable Bowel Musculoskeletal Hx Musculoskeletal Disorders: No Endocrine Hx Endocrine Disorders: Yes HEENT HX ENT Disorders: No Cancer Hx Cancer: No Psychosocial Hx Psychiatric Problems: No Integumentary HX Skin/Integumentary Disorder: No Blood Transfusions Hx Blood Disorders: No Adverse Reaction to a Blood Tr: No Reviewed Nursing Assessment Reviewed/Agree w Nursing PMH: Yes Family Medical History Significant Family History: No Pertinent Family Hx Family Medial History: FH: congestive heart failure 19 FATHER, , Age:86 FH: leukemia 19 MOTHER, , Age:92 FH: uterine cancer 19 MOTHER, , Age:92 Review of Systems Constitutional: Malaise, Weakness, No: Chills, Fever, Other, Sweats Eyes: No: Conjunctivae inflammation, Eyelid inflammation, Other, Pain, Redness , Vision change Respiratory: No: Cough, Dry, Hemoptysis, Other, Pleuritic Pain, SOB with excertion, Shortness of breath, Sputum, Wheezing, Wheezing Cardiovascular: Lt Headedness, Orthopnea Gastrointestinal: No: Abdominal Pain, Constipation, Diarrhea, Hematochezia, Melena, Nausea, Other, Vomiting Neurological: Change in speech, Confusion, Incoordination, Weakness Exam Exam Vital Signs Date Time Temp Pulse Resp B/P (MAP) Pulse Ox O2 Delivery O2 Flow Rate FiO2 03/13/17 05:53 97.2 84 10 128/70 100 100.00 03/13/17 05:43 96.2 78 14 124/67 100 2.00 03/13/17 04:30 66 12 125/72 98 Room Air 03/13/17 04:13 70 15 112/63 95 Room Air 03/13/17 04:12 75 16 123/72 99 Room Air 03/13/17 04:00 67 9 136/74 98 Room Air 03/13/17 04:00 98.4 Room Air 03/13/17 04:00 98 03/13/17 03:00 71 17 139/77 98 Room Air 03/13/17 02:00 72 21 152/83 98 Room Air 03/13/17 01:00 68 03/13/17 01:00 68 19 144/81 98 Room Air 03/13/17 00:00 65 15 147/80 98 Room Air 03/13/17 00:00 97.8 Room Air 03/13/17 00:00 98 03/12/17 23:00 63 15 153/85 98 Room Air 03/12/17 22:00 68 18 143/84 97 Room Air 03/12/17 21:45 68 21 150/83 97 Room Air 03/12/17 21:30 66 10 148/84 97 Room Air 03/12/17 21:15 67 7 146/87 97 Room Air 03/12/17 21:00 69 23 155/92 96 Room Air 03/12/17 20:45 70 23 151/81 96 Room Air 03/12/17 20:30 71 9 163/91 97 Room Air 03/12/17 20:15 67 22 154/95 97 Room Air 03/12/17 20:00 96 03/12/17 20:00 70 13 160/92 99 Room Air 03/12/17 19:45 67 18 148/88 99 Room Air 03/12/17 19:30 71 17 166/92 96 Room Air 03/12/17 19:27 98.6 Room Air 03/12/17 19:15 67 12 97 Room Air 03/12/17 19:00 63 14 99 Room Air 03/12/17 19:00 63 03/12/17 18:53 96 03/12/17 18:40 98.9 70 18 158/94 97 Room Air 03/12/17 18:01 63 18 67 03/12/17 16:58 98.2 73 18 158/87 98 Room Air I & O 03/13/17 07:00 Intake Total 3150 ml Output Total 525 ml Balance 2625 ml General Appearance: No Apparent Distress Respiratory: Chest Non Tender, Normal Breath Sounds, No Accessory Muscle Use, No Respiratory Distress Cardiovascular: Regular Rate, Rhythm, No Edema, No Gallop Capillary Refill: Less Than 3 Seconds Peripheral Pulses: 2+ Dorsalis Pedis (R), 2+ Left Dors-Pedis (L), 2+ Radial Pulses (R), 2+ Radial Pulses (L) Gastrointestinal: non tender, soft Neurologic/Psychiatric: Alert, Oriented x3 Skin: Normal Color, Warm/Dry Results Lab Laboratory Tests 03/12/17 18:20 03/13/17 01:00 03/13/17 04:05 03/13/17 06:09 Assessment/Plan Assessment/Plan GIB s/p transfusion -Surgery following Hypotension - responding to IVF symptomatic bradycardia -Cardiology following Clinical Quality Measures DVT/VTE Risk/Contraindication: Risk Factor Score Per Nursin RFS Level Per Nursing on Admit: 2=Moderate Stroke: Date of last known well: March 12, 2017 KAVIN CHAWLA DO March 13, 2017 06:29
[2017-03-13 06:40] LABS: TROPONIN I < 0.30 NG/ML (<0.30)
[2017-03-13] MEDS: PANTOPRAZOLE 40 MG/10 ML (PROTONIX) VIAL IV SCH ×2 (08:19→22:07)
--- NOTE | 2017-03-13 08:48 | Consultation ---
History of Present Illness History of Present Illness Patient Consulted On(geoffrey/time) 03/13/17 08:42 Date of Admission History of Present Illness This is a 71 year old male patient who was transferred from [facility] to [facility] for suspected TIA with GI bleed. Patient was reported to have had a 3g drop in hemoglobin while in [place]. CT of the head has been performed and it was negative. MRI of the brain has been scheduled for this morning. Patient reports that he has been having dark stools for a week with some pain to the right and left lower quadrant. Patient reports that he started having bright red stool yesterday. Patient has had about 4 bowel movements since yesterday that were bright red. He has had a blood transfusion. since yesterday. Allergies and Home Medications Allergies Coded Allergies: Jzpyozo-Pcw-Aoz Reductase Inhibitor (Verified Allergy, Unknown, 01/29/17) cephalexin (Verified Allergy, Unknown, 03/12/17) ciprofloxacin (Verified Allergy, Unknown, 03/12/17) citalopram (Verified Allergy, Unknown, 03/12/17) levofloxacin (Verified Allergy, Unknown, 01/29/17) metoclopramide HCl (Verified Allergy, Unknown, 01/29/17) sulfamethoxazole (Verified Allergy, Unknown, 03/12/17) trazodone (Unverified Allergy, Unknown, 03/13/17) trimethoprim (Verified Allergy, Unknown, 03/12/17) Home Medications Acetaminophen 500 Mg Tablet, 1,000 MG PO BID PRN, (Reported) TAKES 2 (500MG) TABLETS TWICE DAILY NEEDED FOR PAIN Aspirin 81 Mg Tablet.dr, 81 MG PO HS, (Reported) Docusate Sodium 100 Mg Capsule, 100 MG PO QID PRN, (Reported) NEEDED FOR CONSTIPATION Doxazosin Mesylate 4 Mg Tablet, 2 MG PO HS, (Reported) TAKES 1/2 OF A (4 MG) TABLET / LAST FILLED 05/11/16 #90 Enalapril Maleate 10 Mg Tablet, 5 MG PO BID, (Reported) Escitalopram Oxalate 10 Mg Tablet, 10 MG PO DAILY, (Reported) Eszopiclone 3 Mg Tablet, 3 MG PO HS, (Reported) Fluticasone Propionate 16 Gm [place].susp, 1 SPRAY NSEACH BID, (Reported) Loratadine/Pseudoephedrine 1 Each Tab.er.12h, 1 TAB PO DAILY PRN PRN for ALLERGIES, (Reported) Melatonin/Pyridoxine Hcl (B6) 1 Each Tablet, 10 MG PO HS, (Reported) TAKES 2 (5 MG) TABLETS Metformin HCl 1,000 Mg Tablet, 1,000 MG PO BID, (Reported) Pantoprazole Sodium 40 Mg Tablet.dr, 40 MG PO DAILY, (Reported) Pravastatin Sodium 20 Mg Tablet, 20 MG PO HS, (Reported) Sodium Chloride 45 Ml Btl, 2 SPRAY NSEACH QID PRN, (Reported) NEEDED FOR DRYNESS Past Eapgswy-Actamp-Ndvgyn Hx Patient Social History Alcohol Use: Denies Use Recreational Drug Use: No Smoking Status: Never a Smoker Recent Foreign Travel: No Contact w/Someone Who Travel: No Recent Infectious Disease Expo: No Recent Hopitalizations: No Physical Abuse Screen: No Sexual Abuse: No Immunizations Up To Date PED Vaccines UTD: No Date of Pneumonia Vaccine: May 01, 2013 Date of Influenza Vaccine: Aug 04, 2012 Seasonal Allergies Seasonal Allergies: Yes (had shots for 5 years) Surgeries HX Surgeries: Yes (TURP,SLEEP APNEA,SINUS SURGERY-INVERTED PAPALOMA, COLONOSCOPY) Surgeries: CABG, Orthopedic Respiratory Hx Respiratory Disorders: Yes Respiratory Disorders: Sleep Apnea Cardiovascular Hx Cardiac Disorders: Yes (CABG,STENTS) Cardiac Disorders: Coronary Artery Disease, Hypertension Neurological Hx Neurological Disorders: No Reproductive System Hx Reproductive Disorders: No Genitourinary Hx Genitourinary Disorders: Yes Genitourinary Disorders: Kidney Stones Gastrointestinal Hx Gastrointestinal Disorders: Yes (gastroperesis, ) Gastrointestinal Disorders: Irritable Bowel Musculoskeletal Hx Musculoskeletal Disorders: No Endocrine Hx Endocrine Disorders: Yes HEENT HX ENT Disorders: No Cancer Hx Cancer: No Psychosocial Hx Psychiatric Problems: No Integumentary HX Skin/Integumentary Disorder: No Blood Transfusions Hx Blood Disorders: No Adverse Reaction to a Blood Tr: No Reviewed Nursing Assessment Reviewed/Agree w Nursing PMH: Yes Family Medical History Significant Family History: No Pertinent Family Hx Family Medial History: FH: congestive heart failure 19 FATHER, , Age:86 FH: leukemia 19 MOTHER, , Age:92 FH: uterine cancer 19 MOTHER, , Age:92 Review of Systems-General Constitutional: weakness, other (impaired speech) EENTM: see HPI Respiratory: no symptoms reported Gastrointestinal: LLQ (pain), abdominal pain (RLQ) Musculoskeletal: no symptoms reported Skin: no symptoms reported Psychiatric/Neurological: Other (suspected TIA) Physical Exam-General Problems Physical Exam Vital Signs Vital Sign - Last 12Hours 03/12/17 03/13/17 16:58 05:00 Temp 98.2 Pulse 73 Resp 18 B/P (MAP) 158/87 Pulse Ox 98 O2 Delivery Room Air O2 Flow Rate 2.00 Capillary Refill : Less Than 3 Seconds General Appearance: WD/WN, no apparent distress Respiratory: chest non-tender, no respiratory distress, no accessory muscle use Cardiovascular: regular rate, rhythm Gastrointestinal: soft, no organomegaly, tenderness (right and left lower quadrant. ) Extremities: no pedal edema, no calf tenderness Neurologic/Psychiatric: alert, normal mood/affect, oriented x 3 Skin: normal color, warm/dry Lymphatic: no adenopathy Data Review Labs Laboratory Tests 03/12/17 18:20: Hemoglobin 9.3L, D-Dimer 0.41, Potassium Level 3.9, Magnesium Level 1.9, Troponin I < 0.30 03/13/17 01:00: Hemoglobin 8.5L 03/13/17 04:05: Hemoglobin 8.3L, Potassium Level 4.1, Magnesium Level 2.1, White Blood Count 5.3 , Red Blood Count 3.37L, Hematocrit 27L, Mean Corpuscular Volume 79L, Mean Corpuscular Hemoglobin 25, Mean Corpuscular Hemoglobin Concent 31L, Red Cell Distribution Width 15.4H, Platelet Count 177, Mean Platelet Volume 12.6H, Neutrophils (%) (Auto) 59, Lymphocytes (%) (Auto) 21, Monocytes (%) (Auto) 14H, Eosinophils (%) (Auto) 5, Basophils (%) (Auto) 1, Neutrophils # (Auto) 3.1, Lymphocytes # (Auto) 1.1, Monocytes # (Auto) 0.7, Eosinophils # (Auto) 0.3, Basophils # (Auto) 0.0, Sodium Level 141, Chloride Level 111H, Carbon Dioxide Level 22, Anion Gap 8, Blood Urea Nitrogen 23H, Creatinine 0.91, Estimat Glomerular Filtration Rate > 60, BUN/Creatinine Ratio 25, Glucose Level 91, Calcium Level 8.0L, Phosphorus Level 3.6, Total Bilirubin 0.4, Aspartate Amino Transf (AST/SGOT) 12, Alanine Aminotransferase (ALT/SGPT) 9, Alkaline Phosphatase 43, Total Protein 5.6L, Albumin 3.6 03/13/17 04:15: Glucometer 140H 03/13/17 06:09: Hemoglobin 8.0L, Prothrombin Time 14.3, INR Comment 1.1, Activated Partial Thromboplast Time 25, Lactic Acid Level 1.27, Troponin I < 0.30, Albumin 3.4 Assessment/Plan Assessment/Plan Assessment/Plan TIA GI Bleed Possible endoscopy if cleared by fundraising officer. Discussed EGD and colonoscopy with patient. Also discussed risks and benefits for procedure. We will continue to monitor patient. Pay[place]- Patient transferred from [place] for TIA. Patient with acute blood loss secondary to GI Bleed. He has been transfused 1 unit pRBC. Patient notes recently having more black stools and last day having some red bloody stools as well. Patient at bedside. He has been having issues with finding words. Denies any n/v fever sweats chills shortness of breath or chest pain. general no acute distress heart reg lungs nonlabored abdomen soft nontender no guarding or rebounding rectal deferred at this time. alert normal mood and affect ext nontender TIA, GI bleed unknown upper or lower, anemia secondary to GI bleed. Plan EGD and colonoscopy tomorrow prep colon protonix bid npo after midnight risks and benefits discussed with patient and . Clinical Quality Measures DVT/VTE Risk/Contraindication: Risk Factor Score Per Nursin RFS Level Per Nursing on Admit: 2=Moderate Stroke: Date of last known well: March 12, 2017 ARJUN CISNEROS APRN March 13, 2017 08:47 ANN MARIE KUHN DO March 13, 2017 17:29
--- NOTE | 2017-03-13 09:02 | Consultation-Cardiology ---
HPI-Cardiology Cardiology Consultation: Date of Consultation 03/13/17 Date of Admission 03-12-17 Attending Physician Marco A Pierce MD Admitting Physician Umair Dent DO Consulting Physician José Miguel Stevens MD HPI: Chief Complaint: TIA Anemia Mr. Cristobal has been admitted to ICU 11 from [facility] on 03-12-17. His spouse and daughter are at the bedside. He states yesterday he out working in the garden and spraying weeds at home. He states while he was gardening he was feeling some dizziness and blurred vision, but he continued to work. He then went and sprayed weeds. He states around lunchtime he went to the house and sat on chair at the back door. He does report a feeling of being off balance at the time and having difficulty walking straight. His spouse states he was talking to her, but his conversation was garbled. She reports she advised going to the ED, but he declined. They then ate lunch and he took bath. She states after a few minutes he asked to go to the ED. They went to the [place] [facility] and was evaluated by Chandan Carter APRN. CT of the head was done and an occult stool. At which time they found he had occult (+) stool. He did NOT receive TPA. He was then transferred to [facility]. He feels he is still having to search for words. He reports he has been having lower abdominal discomfort for approx the last 6 weeks. He states approx 4 days ago he began to have dark bowel movements. He states he didn't think too much of it. He then reports around 7 p.m. last night he had a diarrhea BM which had bright red blood. He states he has had a lot of abdominal discomfort and gas. He reports approx every 2 hours or so during the night he was having bright red stools. The daughter reports he had a "code blue" event last night. His states he was in bed and she attempted to wake him up around 4:30 this morning, but was unable to rouse him. She states she did not think he was breathing. Per report of the nurse she went to his room and he was pale and she was unable to palpate a pulse. Telemetry shows SB rate of 41. A code blue was called, however right before starting compressions he came to and responded. He states prior to this event he had received a medication that tasted like bubble gum for gas pain and bloating. He reports he was afraid to pass gas out of fear of messing the bed so he was bearing down. He currently states he feels better, except for some gas pain. No c/o CP or palpitations. No c/o LE edema Review of Systems-Cardiology Review of Systems Constitutional: As described under HPI Eyes: blurred vision, No drainage, No pain, No vision change Ears/Nose/Throat: No ear discharge, No ear pain, No nasal drainage, No ulcerations Respiratory: As described under HPI Cardiovascular: As described under HPI Gastrointestinal: abdominal pain, No constipation, diarrhea, No nausea, No vomiting, other, stool coloration changes (dark, tarry; recently bright red blood) Genitourinary: No dysuria, No discharge, No frequency, No hematuria, No urgency Skin: No rash, No skin related problems, No ulcerations Psychiatric/Neurological: As described under HPI Hematologic: No bleeding abnormalities All Other Systems Reviewed Negative Unless Noted: Yes RPG-Lkqqwh-Oobuop Hx Patient Social History Alcohol Use: Denies Use Recreational Drug Use: No Smoking Status: Never a Smoker Recent Foreign Travel: No Recent Infectious Disease Expo: No Hospitalization with Isolation: Denies Physical Abuse Screen: No Sexual Abuse: No Immunizations Up To Date Date of Pneumonia Vaccine: May 01, 2013 Date of Influenza Vaccine: Aug 04, 2012 Past Medical History PMH As described under Assessment. Family Medical History Family Medical History: He reports his father had CHF. No reported h/o premature CAD or SCD. Family History: 19 FATHER, , Age:86 FH: congestive heart failure 19 MOTHER, , Age:92 FH: leukemia FH: uterine cancer Allergies and Home Medications Allergies Coded Allergies: Lrkgnue-Yvr-Pob Reductase Inhibitor (Verified Allergy, Unknown, 01/29/17) cephalexin (Verified Allergy, Unknown, 03/12/17) ciprofloxacin (Verified Allergy, Unknown, 03/12/17) citalopram (Verified Allergy, Unknown, 03/12/17) levofloxacin (Verified Allergy, Unknown, 01/29/17) metoclopramide HCl (Verified Allergy, Unknown, 01/29/17) sulfamethoxazole (Verified Allergy, Unknown, 03/12/17) trimethoprim (Verified Allergy, Unknown, 03/12/17) Uncoded Allergies: TRAZDONE (Allergy, Unknown, 03/12/17) Home Medications Acetaminophen 500 Mg Tablet, 1,000 MG PO BID PRN, (Reported) TAKES 2 (500MG) TABLETS TWICE DAILY NEEDED FOR PAIN Aspirin 81 Mg Tablet.dr, 81 MG PO HS, (Reported) Docusate Sodium 100 Mg Capsule, 100 MG PO QID PRN, (Reported) NEEDED FOR CONSTIPATION Doxazosin Mesylate 4 Mg Tablet, 2 MG PO HS, (Reported) TAKES 1/2 OF A (4 MG) TABLET / LAST FILLED 05/11/16 #90 Enalapril Maleate 10 Mg Tablet, 5 MG PO BID, (Reported) Escitalopram Oxalate 10 Mg Tablet, 10 MG PO DAILY, (Reported) Eszopiclone 3 Mg Tablet, 3 MG PO HS, (Reported) Fluticasone Propionate 16 Gm [place].susp, 1 SPRAY NSEACH BID, (Reported) Loratadine/Pseudoephedrine 1 Each Tab.er.12h, 1 TAB PO DAILY PRN PRN for ALLERGIES, (Reported) Melatonin/Pyridoxine Hcl (B6) 1 Each Tablet, 10 MG PO HS, (Reported) TAKES 2 (5 MG) TABLETS Metformin HCl 1,000 Mg Tablet, 1,000 MG PO BID, (Reported) Pantoprazole Sodium 40 Mg Tablet.dr, 40 MG PO DAILY, (Reported) Pravastatin Sodium 20 Mg Tablet, 20 MG PO HS, (Reported) Sodium Chloride 45 Ml Btl, 2 SPRAY NSEACH QID PRN, (Reported) NEEDED FOR DRYNESS Physical Exam-Cardiology Physical Exam Vital Signs/I&O Vital Sign - Last 12Hours 03/13/17 03/13/17 03/13/17 03/13/17 00:00 00:00 00:00 01:00 Temp 97.8 Pulse 65 68 Resp 15 19 B/P (MAP) 147/80 144/81 Pulse Ox 98 98 98 O2 Delivery Room Air Room Air Room Air 03/13/17 03/13/17 03/13/17 03/13/17 01:00 02:00 03:00 04:00 Pulse 68 72 71 Resp 21 17 B/P (MAP) 152/83 139/77 Pulse Ox 98 98 98 O2 Delivery Room Air Room Air 03/13/17 03/13/17 03/13/17 03/13/17 04:00 04:00 04:12 04:13 Temp 98.4 Pulse 67 75 70 Resp 9 16 15 B/P (MAP) 136/74 123/72 112/63 Pulse Ox 98 99 95 O2 Delivery Room Air Room Air Room Air Room Air 03/13/17 03/13/17 03/13/17 03/13/17 04:30 05:00 05:43 05:53 Temp 96.2 97.2 Pulse 66 65 78 84 Resp 12 22 14 10 B/P (MAP) 125/72 103/60 124/67 128/70 Pulse Ox 98 85 100 100 O2 Delivery Room Air Nasal Cannula O2 Flow Rate 2.00 2.00 100.00 03/13/17 03/13/17 03/13/17 03/13/17 06:00 07:00 07:02 08:20 Temp 97.4 98.1 Pulse 76 72 75 75 Resp 12 16 14 B/P (MAP) 118/62 148/84 135/83 Pulse Ox 100 100 98 O2 Delivery Nasal Cannula Room Air O2 Flow Rate 2.00 100.00 Intake and Output 03/13/17 00:00 Intake Total 900 ml Output Total 525 ml Balance 375 ml Capillary Refill : Less Than 3 Seconds Constitutional: appears stated age, No apparent distress, well-developed, well- nourished HEENT: PERRL, No discharge, hearing is well preserved, oral hygience is good, No ulceration, No xanthelasmas are seen Neck: No carotid bruit, carotid pulses are 2 + bilaterally Respiratory: No accessory muscle use, No respiratory distress, lungs clear to auscultation Cardiovascular: regular rate-rhythm, No JVD, S1 and S2 Gastrointestinal: tender, soft, audible bowel sounds (hyperactive), No spleenomegaly Rectal: deferred Extremities: No clubbing, No cyanosis, No significant edema Neurologic/Psychiatric: alert, oriented x 3, No facial droop, No motor weakness , other (word search; difficulty staying on task during conversation), power is 5/5 both on sides Skin: No rash, No ulcerations Data Review Labs Laboratory Tests 03/12/17 18:20: Hemoglobin 9.3L, D-Dimer 0.41, Potassium Level 3.9, Magnesium Level 1.9, Troponin I < 0.30 03/13/17 01:00: Hemoglobin 8.5L 03/13/17 04:05: Hemoglobin 8.3L, Potassium Level 4.1, Magnesium Level 2.1, White Blood Count 5.3 , Red Blood Count 3.37L, Hematocrit 27L, Mean Corpuscular Volume 79L, Mean Corpuscular Hemoglobin 25, Mean Corpuscular Hemoglobin Concent 31L, Red Cell Distribution Width 15.4H, Platelet Count 177, Mean Platelet Volume 12.6H, Neutrophils (%) (Auto) 59, Lymphocytes (%) (Auto) 21, Monocytes (%) (Auto) 14H, Eosinophils (%) (Auto) 5, Basophils (%) (Auto) 1, Neutrophils # (Auto) 3.1, Lymphocytes # (Auto) 1.1, Monocytes # (Auto) 0.7, Eosinophils # (Auto) 0.3, Basophils # (Auto) 0.0, Sodium Level 141, Chloride Level 111H, Carbon Dioxide Level 22, Anion Gap 8, Blood Urea Nitrogen 23H, Creatinine 0.91, Estimat Glomerular Filtration Rate > 60, BUN/Creatinine Ratio 25, Glucose Level 91, Calcium Level 8.0L, Phosphorus Level 3.6, Total Bilirubin 0.4, Aspartate Amino Transf (AST/SGOT) 12, Alanine Aminotransferase (ALT/SGPT) 9, Alkaline Phosphatase 43, Total Protein 5.6L, Albumin 3.6 03/13/17 04:15: Glucometer 140H 03/13/17 06:09: Hemoglobin 8.0L, Prothrombin Time 14.3, INR Comment 1.1, Activated Partial Thromboplast Time 25, Lactic Acid Level 1.27, Troponin I < 0.30, Albumin 3.4 Radiology NAME: [facility] REC#: [id number] PT STATUS: ADM IN : 1945 PHYSICIAN: MARC OA PIERCE MD ADMIT DATE: 03/12/17/ICU Draft Date of Exam:03/13/17 MRI BRAIN W/O CONTRAST PROCEDURE: MR imaging of the brain without contrast. TECHNIQUE: Multiplanar/multisequence MR imaging of the brain was performed without contrast. INDICATION: TIA. Bradycardia. GI bleed. FINDINGS: There is diffusion restriction seen within the left periventricular white matter just above the basal ganglia level involving an area measuring 2 x 1.3 cm, suggestive of an acute to subacute infarct. No other areas of diffusion restriction are seen. The area of involvement demonstrates T2 hyperintense signal. Other T2 hyperintense signal is seen in the periventricular white matter, compatible with chronic microvascular ischemic changes. There is normal signal within the brainstem and cerebellum. The pituitary gland is normal in size. No hypothalamic or pineal region mass. No extra-axial fluid collection is seen. The central vascular flow-voids appear unremarkable. There is a symmetric appearance of the internal auditory canals and inner ear structures. The orbits appear symmetric. There is mild mucosal thickening in the ethmoidal air cells seen with suggestion of prior sinonasal surgery. Correlate with history. IMPRESSION: There is a 2 cm area of acute infarction in the left periventricular white matter just above the level of the basal ganglia. The findings were called to Dr. Pierce at the time of dictation. Dictated on workstation # [id number] Dict: 03/13/1731 Trans: 03/13/17 [id number] Interpreted by: ROSY RAGSDALE MD Electronically signed by: ECG Impression ECG Initial ECG Rhythm: Normal Sinus A/P-Cardiology Assessment/Admission Diagnosis Acute CVA per MRI today - a 2 cm area of acute infarction in the left periventricular white matter just above the level of the basal ganglia. Management per medical services Anemia - suspected GI bleed - surgical services managing Episode of unresponsiveness this morning of undetermined etiology - possibly vasovagal - continue tele Hypertension Prostate enlargement and urinary problems for which he needs therapy with doxazosin Coronary artery disease with a history of coronary artery bypass surgery, consisting of left internal mammary artery graft to the left anterior descending , saphenous vein to the diagonal, and saphenous vein to the obtuse marginal on by Dr. Benavides at [facility]. MPI of 01/29/17 did not show any ischemia or infarction and LVEF was 63% Normal global left ventricular systolic function. Left ventricular ejection fraction was 60% on cardiac catheterization prior to coronary artery bypass surgery. Echo of 01/24/17: LVEF 55-60%, mild to mod LAE, PASP 25-30 mmHg, triv to mild MR & TR & PI, no valvular stenosis Chest wall pain following sternotomy, which has improved Gastroesophageal reflux Hyperlipidemia, tolerating low dose statin therapy Relative intolerance to statin therapy, but he has been tolerating low dose Pravachol Maturity onset diabetes mellitus with a history of diabetic gastroparesis which causes chronic epigastric discomfort, he follows with Dr. 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 Chronic prostatitis, he follows with Dr. Rockwell Irritable bowel syndrome Depression which he is following with Dr. Dent Sleep apnea which he has had surgical treatment in 2000 associated with RLS and follows with Dr. Sanchez Non-specific bilat leg discomfort, now resolved. No evidence of any significant obstructive PAD on ANDREY of 05/18/15 Carotid u/s of June 08, 2016 showed minimal bilat carotid plaque without evidence of hemodynamic significance Discussion and Recomendations Complex management issue. Anemia requiring transfusion d/t suspected GI bleed which is being managed per surgical services. From a stroke and cardiac standpoint, continuation of antiplatelet therapy is important. We feel from a cardiac stand point it is reasonable to proceed with endoscopy as determined by surgical services. We do advise resumption of ASA DANII from surgical standpoint d/t h/o CAD with CABG in 2012. The other issue is that of a stroke as seen on MRI today. We will leave determination of antiplatelet tx for CVA to the medical services. Source of CVA is undetermined; carotid u/s of June 2015 showed minimal carotid plaquing. We will repeat the carotid u/s. We will continue tele to evaluate for possible arrhythmia. If no arrhythmia is found consideration for ILR needs to be considered to evaluate for occult a-fib/flutter. Episode of unresponsiveness this morning prompting a code blue to be called, which was then called off after he came to. Sinus minnie 40's documented on tele at the time. Possible vasovagal; he does report he was bearing down in an attempt to not pass gas out of fear of messing the bed. Continue anti-hypertensives and statin. Monitor lab closely. We would like to thank the Hospitalist service for this consult. Further recommendations will be based on his hospital course. This consult is being scribed by Dwain Andrade APRN on behalf of Dr. Stevens after discussion regarding plan of care. Clinical Quality Measures DVT/VTE Risk/Contraindication: Risk Factor Score Per Nursin RFS Level Per Nursing on Admit: 2=Moderate Stroke: Date of last known well: March 12, 2017 Physician Assessment Physician Assessment Lungs: clear Cor: reg A&R * As documented in our note above * Very complex management problem: needs to continue aspirin for CAD and thromboembolic CVA, but aspirin needs to be held because of continuing bleed that is requiring blood transfusion * Will need senior living monitoring for PAF, if none found during the hospitalization * I had a detailed discussion with him and his and his daughter regarding his CV issues HARRISON ANDRADE DISPATCHER SERVICE CHIEF March 13, 2017 09:02 JOSÉ MIGUEL STEVENS MD FACP FAC CCDS March 13, 2017 11:57
--- NOTE | 2017-03-13 09:55 | Diagnostic Imaging Report ---
PROCEDURE: MR imaging of the brain without contrast. TECHNIQUE: Multiplanar/multisequence MR imaging of the brain was performed without contrast. INDICATION: TIA. Bradycardia. GI bleed. FINDINGS: There is diffusion restriction seen within the left periventricular white matter just above the basal ganglia level involving an area measuring 2 x 1.3 cm, suggestive of an acute to subacute infarct. No other areas of diffusion restriction are seen. The area of involvement demonstrates T2 hyperintense signal. Other T2 hyperintense signal is seen in the periventricular white matter, compatible with chronic microvascular ischemic changes. There is normal signal within the brainstem and cerebellum. The pituitary gland is normal in size. No hypothalamic or pineal region mass. No extra-axial fluid collection is seen. The central vascular flow-voids appear unremarkable. There is a symmetric appearance of the internal auditory canals and inner ear structures. The orbits appear symmetric. There is mild mucosal thickening in the ethmoidal air cells seen with suggestion of prior sinonasal surgery. Correlate with history. IMPRESSION: There is a 2 cm area of acute infarction in the left periventricular white matter just above the level of the basal ganglia. The findings were called to Dr. Pack at the time of dictation. Dictated by: Dictated on workstation # [id number]
[2017-03-13] MEDS ORDERED: ESZO3TAB38 PO (11:01)
[2017-03-13] MEDS ORDERED: PRAV20TA3 PO (11:01)
[2017-03-13] MEDS ORDERED: ENAL10TA PO (11:01)
[2017-03-13] MEDS ORDERED: DOXA4TAB2 PO (11:01)
[2017-03-13] MEDS ORDERED: METF1000 PO (11:01)
[2017-03-13] MEDS ORDERED: ESCI10TA55 PO (11:01)
[2017-03-13] MEDS ORDERED: PANT40TA3 PO (11:01)
[2017-03-13] MEDS ORDERED: LORA1TAB59 PO (11:01)
[2017-03-13] MEDS ORDERED: FLUT16SP22 NSEACH (11:01)
--- NOTE | 2017-03-13 11:09 | History & Physical-Hospitalist ---
HPI History of Present Illness: HPI/Chief Complaint CC: CVA w/GIB HPI: This is a 71-year-old white male clinic patient of Dr. DENT at [facility] who presented as a direct transfer from [facility] to [facility] ER due to garbled speech while performing yard work and likely sustained a stroke. He also was passing blood per rectum and had been doing that on and off for the last several weeks but it intensified yesterday to the point that it filled the toilet. He was found to have a presumed TIA versus stroke so he was transferred to higher level care to [facility] and stroke Center at was notified and due to the fact of the unknown exact time of the event he was not a TPA candidate in addition to active GI bleeding. At this current time patient reports that he had a syncopal episode that was documented with bradycardia 40s this morning because he was holding the bloody stool tightly with increased rectal tone because he was afraid he was going to mask the bed but then when he got up fainted. Resuscitation efforts were initiated but none were needed since he did recover quickly. He has received 1 unit of blood thus far and did have a great deal of blood in the toilet this morning. MRI was done as ordered and it did show acute CVA but once again very difficult case considering the active bleeding he is having poses a significant risk for life-threatening bleeding if antiplatelet therapy and or anti-coagulation therapy were initiated. Carotid ultrasound will be repeated since he did have some mild disease noted last year and endoscopy will be performed by Dr. Hare while closely monitoring his hemoglobin and hematocrit. Source: patient Exam Limitations: no limitations Date Seen 03/13/17 Attending Physician Isaac Pack MD PCP Umair Dent DO Referring Physician Date of Admission March 12, 2017 at 17:27 Home Medications & Allergies Home Medications Reviewed patient Home Medication Reconciliation Form Allergies Allergies Coded Allergies Tupgozh-Rwu-Lpd Reductase Inhibitor (Verified Allergy, Unknown, 01/29/17) cephalexin (Verified Allergy, Unknown, 03/12/17) ciprofloxacin (Verified Allergy, Unknown, 03/12/17) citalopram (Verified Allergy, Unknown, 03/12/17) levofloxacin (Verified Allergy, Unknown, 01/29/17) metoclopramide HCl (Verified Allergy, Unknown, 01/29/17) sulfamethoxazole (Verified Allergy, Unknown, 03/12/17) trimethoprim (Verified Allergy, Unknown, 03/12/17) Uncoded Allergies TRAZDONE ( Allergy, Unknown, 03/12/17) Past Zunephx-Eejcdg-Gvihhl Hx Patient Social History Marrital Status: 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) Alcohol Use: Denies Use Recreational Drug Use: No Smoking Status: Never a Smoker Physical Abuse Screen: No Sexual Abuse: No Recent Foreign Travel: No Contact w/other who traveled: No Recent Hopitalizations: No Recent Infectious Disease Expo: No Immunizations Up To Date Date of Pneumonia Vaccine: May 01, 2013 Date of Influenza Vaccine: Aug 04, 2012 Seasonal Allergies Seasonal Allergies: Yes (had shots for 5 years) Surgeries HX Surgeries: Yes (TURP,SLEEP APNEA,SINUS SURGERY-INVERTED PAPALOMA, COLONOSCOPY) Surgeries: CABG, Orthopedic Respiratory Hx Respiratory Disorders: Yes Respiratory Disorders: Asthma Cardiovascular Hx Cardiovascular Disorders: Yes (CABG,STENTS) Cardiac Disorders: Coronary Artery Disease, Hypertension Neurological Hx Neurological Disorders: No Reproductive System Hx Reproductive Disorders: No Genitourinary Hx Genitourinary Disorders: Yes Genitourinary Disorders: Kidney Stones Gastrointestinal Hx Gastrointestinal Disorders: Yes (gastroperesis, ) Gastrointestinal Disorders: Irritable Bowel Musculoskeletal Hx Musculoskeletal Disorders: No Endocrine Hx Endocrine Disorders: Yes HEENT HX ENT Disorders: No Cancer Hx Cancer: No Psychosocial Hx Psychiatric Problems: No Integumentary HX Skin/Integumentary Disorder: No Blood Transfusions Hx Blood Disorders: No Adverse Reaction to a Blood Tr: No Reviewed Nursing Assessment Reviewed/Agree w Nursing PMH: Yes Family Medical History Significant Family History: No Pertinent Family Hx Family Hx: FH: congestive heart failure 19 FATHER, , Age:86 FH: leukemia 19 MOTHER, , Age:92 FH: uterine cancer 19 MOTHER, , Age:92 Review of Systems Constitutional: see HPI, dizziness, malaise, weakness EENTM: no symptoms reported Respiratory: no symptoms reported Cardiovascular: no symptoms reported Gastrointestinal: abdominal pain (LLQ), loss of appetite, melena, nausea Genitourinary: decreased output Musculoskeletal: back pain Skin: no symptoms reported Psychiatric/Neurological: Anxiety, Numbness, Weakness All Other Systems Reviewed Negative Unless Noted: Yes Physical Exam Physical Exam Vital Signs Vital Sign - Last 12Hours 03/12/17 03/13/17 16:58 05:00 Temp 98.2 Pulse 73 Resp 18 B/P (MAP) 158/87 Pulse Ox 98 O2 Delivery Room Air O2 Flow Rate 2.00 Capillary Refill : Less Than 3 Seconds General Appearance: No Apparent Distress, WD/WN, Chronically ill Eyes: Bilateral Eye Normal Inspection, Bilateral Eye PERRL HEENT: PERRL/EOMI, Normal ENT Inspection, Pharynx Normal Neck: Full Range of Motion, Normal Inspection, Non Tender, Supple, Carotid Bruit Respiratory: Chest Non Tender, Lungs Clear, Normal Breath Sounds, No Accessory Muscle Use, No Respiratory Distress Cardiovascular: Regular Rate, Rhythm, No Edema, No Gallop, No JVD, No Murmur, Normal Peripheral Pulses Gastrointestinal: Normal Bowel Sounds, No Organomegaly, No Pulsatile Mass, Non Tender, Soft Back: Normal Inspection, No CVA Tenderness, No Vertebral Tenderness Extremity: Normal Capillary Refill, Normal Inspection, Normal Range of Motion, Non Tender, No Calf Tenderness, No Pedal Edema Neurologic/Psychiatric: Alert, Oriented x3, No Motor/Sensory Deficits, Normal Mood/Affect, Other (subtle word finding difficulties) Skin: Normal Color, Warm/Dry Lymphatic: No Adenopathy Results Results/Procedures Lab Laboratory Tests 03/12/17 18:20 03/13/17 01:00 03/13/17 04:05 03/13/17 06:09 Assessment/Plan Admission Diagnosis Assessment: Acute CVA of unknown time of occurrence and not a TPA candidate due to active GI bleeding Anemia due to GI bleeding received 1 unit of packed red blood cell transfusion uncomplicated Syncopal episode due to vasovagal syncope with documented bradycardia of 40 on telemetry while in ICU early this morning with increased rectal tone to keep in melanic stools Coronary artery bypass graft previous bypass surgery [address] Benavides [facility] mild carotid artery stenosis on ultrasound 1 year ago Kidney stones Irritable bowel syndrome BPH Assessment and Plan Plan: Therapy evaluation for new stroke with word finding difficulties Nothing by mouth in preparation for endoscopy Fall risk Vasovagal syncope requiring CODE BLUE evaluation but recovered quickly Transfuse as necessary PPI Clinical Quality Measures DVT/VTE Risk/Contraindication: Risk Factor Score Per Nursin RFS Level Per Nursing on Admit: 2=Moderate Stroke: Date of last known well: March 12, 2017 MIKI WALSH DO March 13, 2017 11:09
--- NOTE | 2017-03-13 11:55 | Diagnostic Imaging Report ---
PROCEDURE: US Carotid Duplex Bilateral. TECHNIQUE: Multiple real-time grayscale images were obtained over the carotid arteries in various projections bilaterally. Additional duplex Doppler and color Doppler images were also obtained. INDICATION TIA. Bradycardia. Acute infarct Findings: There is a mild associated plaque seen on grayscale images. Color Doppler demonstrate patent common, internal and external carotid arteries on both sides. There is antegrade flow seen in the vertebral arteries. Peak systolic velocities in the right ICA are 80, 109 and 110 CM per second from proximal to distal and on the left are 77, 96 and on 103 cm/s. ICA over CCA ratios are up to 1.1 on the right and up to 0.9 on the left. IMPRESSION: Estimated underlying stenosis is in the range of 0-40% bilaterally. Dictated by: Dictated on workstation # [id number]
[2017-03-13] MEDS ORDERED: GOLYTELY POWDER 4000 ML BTL PO NR (13:12)
--- NOTE | 2017-03-13 15:24 | Occ Therapy Progress Note ---
Therapy Progress Note Order received for OT eval and treat. Chart review completed. Attempted evaluation a 1510. Pt in bed with family present. Pt states he is fatigued from not sleeping last night, being NPO, and being up to commode and recently working with PT. Pt requests to participate in OT evaluation tomorrow. Will attempt eval 03/14/17. RN notified. 1, visit JASON BLOOM OT March 13, 2017 15:24
--- NOTE | 2017-03-13 15:36 | Physical Therapy Evaluation ---
PT Evaluation-General Medical Diagnosis Admission Date March 12, 2017 at 17:27 Medical Diagnosis: CVA Onset Date: March 12, 2017 Therapy Diagnosis Therapy Diagnosis: weakness Height/Weight Height (Feet): 5 Height (Inches): 8.00 Weight (Pounds): 169 Weight (Ounces): 4.6 Precautions Precautions/Isolations: Fall Prevention, Standard Precautions Referral Physician: Merlyn Reason for Referral: Evaluation/Treatment Medical History Pertinent Medical History: CABG, CAD, DM, HTN Additional Medical History IBS Current History Pt admitted with CVA confirmed with diagnostic imaging and GI bleed. Pending endoscopy tomorrow. Pt was working outside at home and had syncopal episode. He was taken to [facility] and then transported to [facility]. Reviewed History: Yes Social History Home: Single Level Current Living Status: Spouse Prior/Core FIM Prior Level of Function Functional Hughes Measure 0=Not Assessed/NA 4=Minimal Assistance 1=Total Assistance 5=Supervision or Setup 2=Maximal Assistance 6=Modified Hughes 3=Moderate Assistance 7=Complete Hughes Bed Mobility: 7 Transfers (B,C,W/C) (FIM): 7 Gait: 7 PT Evaluation-Current Subjective Agrees to P T. Denies pain or other complaints. Pt/Family Goals Hoping to go home on Saturday. Objective Patient Orientation: Person, Place, Time, Situation Problem Solving: Good (slightly impulsive) ROM/Strength ROM Lower Extremities WNL Strenght Lower Extremities WNL; no noted functional deficits. Integumentary/Posture Integumentary intact Bowel Incontinence: No Bladder Incontinence: No Posture normal and symmetrical Neuromuscular (Tone, Coordination, Reflexes) no noted functional deficit Sensory Vision: Functional Hearing: Functional Hand Dominance: Right Sensation Right Lower Extremit: Intact Sensation Left Lower Extremity: Intact Transfers Functional Hughes Measure 0=Not Assessed/NA 4=Minimal Assistance 1=Total Assistance 5=Supervision or Setup 2=Maximal Assistance 6=Modified Hughes 3=Moderate Assistance 7=Complete Hughes Transfers (B, C, W/C) (FIM): 5 SBA for all functional transfers for safety. Gait Mode of Locomotion: Walk Anticipated Mode of Locomotion: Walk Comments/Gait Description Pt able to stand at EOB and take 2-3 steps forward and back several times and sidestepping all with SBA. Pt able to turn and adjust weight without LOB Balance Sitting Static: Good Sitting Dynamic: Good Standing Static: Good Standing Dynamic: Good Treatment Sit to stand x multiple reps and steps taken at EOB. Assessment/Needs Post CVA with no noted functional deficits. Pt able to transfer and stand without assist. LImited ambulation this visit due to attachments and limited ability to move from the EOB. Pt will benefit from short term PT while hospitalized to promoted functional mobility. Personal factors: GI bleed, CVA, DM; exam: SBA with transfers and standing.; evolving presentation due to recent CVA. Evaluation of low complexity. Rehab Potential: Good PT Center Director Goals Center Director Goals PT [facility] Goals Time Frame: March 18, 2017 Transfers (B,C,W/C) (FIM): 7 Gait (FIM): 7 PT Plan Problem List Problem List: Activity Tolerance, Functional Strength, Safety Treatment/Plan Treatment Plan: Continue Plan of Care Treatment Plan: Bed Mobility, Education, Functional Activity Olinda, Functional Strength, Gait, Safety, Therapeutic Exercise, Transfers Treatment Duration: March 18, 2017 # of days/week 5-6 Visits Per Week: 5-6 Pt/Family Agrees w/Plan: Yes Safety Risks/Education Patient Education: Transfer Techniques, Safety Issues Teaching Recipient: Patient Teaching Methods: Demonstration, Discussion Response to Teaching: Return Demonstration Time/GCodes Time In: 1430 Time Out: 1500 Total Billed Treatment Time: 30 Total Billed Treatment visit EVL 15 FA 15 DARRON LOUISE PT March 13, 2017 15:36
[2017-03-14] VITALS (22 sets, daily range): BP systolic 129–177; BP diastolic 68–95
[2017-03-14 05:49] LABS: ALANINE AMINOTRANSFERASE 11 U/L (0-55); ALBUMIN 3.9 G/DL (3.2-4.5); ANION GAP 11 MMOL/L (5-14); ASPARTATE AMINO TRANSFERASE 15 U/L (5-34); BILIRUBIN,TOTAL 0.7 MG/DL (0.1-1.0); BLOOD UREA NITROGEN 15 MG/DL (7-18); BUN/CREATININE RATIO 17; CALCIUM 8.4 MG/DL (8.5-10.1); CARBON DIOXIDE 20 MMOL/L (21-32); CHLORIDE 108 MMOL/L (98-107); GFR ESTIMATED > 60; GLUCOSE 123 MG/DL (70-105); MAGNESIUM 2.1 MG/DL (1.8-2.4); PHOSPHORUS 2.3 MG/DL (2.3-4.7); POTASSIUM 3.9 MMOL/L (3.6-5.0); SODIUM 139 MMOL/L (135-145); TOTAL PROTEIN 6.1 G/DL (6.4-8.2)
[2017-03-14] MEDS: KCL 20 MEQ TAB (K-DUR) PO SCH (05:49)
--- NOTE | 2017-03-14 06:39 | Pulmonary Progress Note ---
Subjective Subjective/Events-last exam Pt has had BRBPR last night. plan is for colonoscopy Exam Exam Vital Signs Date Time Temp Pulse Resp B/P (MAP) Pulse Ox O2 Delivery O2 Flow Rate FiO2 03/14/17 06:00 64 14 144/91 98 Room Air 03/14/17 05:00 98 23 96 Room Air 03/14/17 04:00 98 23 157/79 96 Room Air 03/14/17 03:00 57 17 137/79 97 Room Air 03/14/17 02:00 62 19 161/84 98 Room Air 03/14/17 01:00 66 28 134/68 99 Room Air 03/14/17 01:00 66 03/14/17 00:00 74 15 134/78 96 Room Air 03/13/17 23:00 68 14 142/67 98 Room Air 03/13/17 22:00 73 19 159/90 98 Room Air 03/13/17 21:00 84 13 128/75 95 Room Air 03/13/17 20:00 74 25 141/86 99 Room Air 03/13/17 19:58 100 03/13/17 19:00 73 03/13/17 19:00 85 32 134/81 100 Room Air 03/13/17 18:00 64 26 147/84 100 Room Air 03/13/17 17:00 65 11 149/82 100 Room Air 03/13/17 16:15 96.9 03/13/17 16:00 76 17 143/84 95 Room Air 03/13/17 15:00 96 16 Room Air 03/13/17 14:00 73 11 133/69 98 Room Air 03/13/17 13:00 70 12 144/93 99 Room Air 03/13/17 13:00 73 03/13/17 11:00 73 20 146/81 Room Air 03/13/17 10:00 71 17 146/85 99 Room Air 03/13/17 08:20 98.1 75 14 135/83 98 Room Air 03/13/17 07:02 97.4 75 16 148/84 100 100.00 03/13/17 07:00 73 25 139/84 100 Nasal Cannula 2.00 03/13/17 07:00 72 I & O 03/14/17 07:00 Intake Total 2520 ml Balance 2520 ml General Appearance: No Apparent Distress, WD/WN, Chronically ill HEENT: PERRL/EOMI, Normal ENT Inspection, Pharynx Normal Neck: Full Range of Motion, Normal Inspection, Non Tender, Supple, Carotid Bruit Respiratory: Chest Non Tender, Lungs Clear, Normal Breath Sounds, No Accessory Muscle Use, No Respiratory Distress Cardiovascular: Regular Rate, Rhythm, No Edema, No Gallop, No JVD, No Murmur, Normal Peripheral Pulses Capillary Refill: Less Than 3 Seconds Peripheral Pulses: 2+ Dorsalis Pedis (R), 2+ Left Dors-Pedis (L), 2+ Radial Pulses (R), 2+ Radial Pulses (L) Gastrointestinal: soft, no organomegaly, tenderness (right and left lower quadrant. ) Extremity: Normal Capillary Refill, Normal Inspection, Normal Range of Motion, Non Tender, No Calf Tenderness, No Pedal Edema Neurologic/Psychiatric: Alert, Oriented x3, No Motor/Sensory Deficits, Normal Mood/Affect, Other (subtle word finding difficulties) Skin: Normal Color, Warm/Dry Lymphatic: No Adenopathy Results Lab Laboratory Tests 03/12/17 18:20 03/13/17 01:00 03/13/17 04:05 03/13/17 06:09 03/13/17 12:07 03/13/17 18:01 03/14/17 00:05 03/14/17 05:19 Assessment/Plan Assessment/Plan GIB s/p transfusion -Surgery following Hypotension - responding to IVF symptomatic bradycardia -Cardiology following Clinical Quality Measures DVT/VTE Risk/Contraindication: Risk Factor Score Per Nursin RFS Level Per Nursing on Admit: 2=Moderate Stroke: Date of last known well: March 12, 2017 KAVIN CHAWLA DO March 14, 2017 06:39
[2017-03-14] MEDS: POTASSIUM CL 10MEQ/50ML IVPB 50 ML IV SCH (07:03)
[2017-03-14] MEDS: MAGNESIUM 1 GM/100 ML IVPB 100 ML IV SCH (07:03)
--- NOTE | 2017-03-14 08:36 | Progress Note-Cardiology ---
Cardiology SOAP Progress Note Subjective: Sitting up in bed. States he feels better this morning. Reports he had bloody stools throughout the day yesterday. States abdominal discomfort is still present, but better. No c/o CP, palpitations, syncope or near syncope. Objective: I&O/Vital Signs Vital Sign - Last 12Hours 03/14/17 03/14/17 03/14/17 03/14/17 01:00 01:00 02:00 03:00 Pulse 66 66 62 57 Resp 28 19 17 B/P (MAP) 134/68 161/84 137/79 Pulse Ox 99 98 97 O2 Delivery Room Air Room Air Room Air 03/14/17 03/14/17 03/14/17 03/14/17 04:00 05:00 06:00 07:00 Pulse 98 98 64 67 Resp 23 23 14 B/P (MAP) 157/79 144/91 Pulse Ox 96 96 98 O2 Delivery Room Air Room Air Room Air 03/14/17 03/14/17 03/14/17 03/14/17 07:00 08:00 08:35 10:00 Temp 98.6 Pulse 68 57 65 74 Resp 11 20 18 23 B/P (MAP) 151/92 150/92 170/91 129/69 Pulse Ox 95 100 100 100 O2 Delivery Room Air Room Air Room Air Room Air Intake and Output 03/13/17 23:59 Intake Total 2420 ml Balance 2420 ml Weight (Pounds): 168 Weight (Ounces): 0.0 Weight (Calculated Kilograms): 76.366271 Constitutional: appears stated age, No apparent distress, well-developed, well- nourished Respiratory: No accessory muscle use, No respiratory distress, lungs clear to auscultation Cardiovascular: regular rate-rhythm, No JVD, S1 and S2 Gastrointestional: tender, soft, audible bowel sounds, No spleenomegaly Extremities: No clubbing, No cyanosis, No significant edema Neurologic/Psychiatric: alert, oriented x 3, No facial droop, No motor weakness , grossly intact (speech is better today) Skin: No rash, No ulcerations Results/Procedures: Labs Laboratory Tests 03/13/17 17:33: Glucometer 103 03/13/17 18:01: Hemoglobin 9.7L, Hematocrit 30L 03/14/17 00:05: Hemoglobin 8.7L, Hematocrit 27L 03/14/17 05:19: Hemoglobin 9.6L, Hematocrit 30L, Sodium Level 139, Potassium Level 3.9, Chloride Level 108H, Carbon Dioxide Level 20L, Anion Gap 11, Blood Urea Nitrogen 15, Creatinine 0.90, Estimat Glomerular Filtration Rate > 60, BUN/ Creatinine Ratio 17, Glucose Level 123H, Calcium Level 8.4L, Phosphorus Level 2.3, Magnesium Level 2.1, Total Bilirubin 0.7, Aspartate Amino Transf (AST/SGOT ) 15, Alanine Aminotransferase (ALT/SGPT) 11, Alkaline Phosphatase 49, Total Protein 6.1L, Albumin 3.9 03/14/17 12:15: Glucometer 94 03/14/17 12:16: Hemoglobin 9.1L, Hematocrit 29L Microbiology 03/12/17 MRSA Screen - Final, Complete MRSA not isolated A/P: Assessment: Acute CVA per MRI today - a 2 cm area of acute infarction in the left periventricular white matter just above the level of the basal ganglia. Management per medical services Anemia - suspected GI bleed - surgical services managing Episode of unresponsiveness this morning of undetermined etiology - possibly vasovagal - continue tele Hypertension Prostate enlargement and urinary problems for which he needs therapy with doxazosin Coronary artery disease with a history of coronary artery bypass surgery, consisting of left internal mammary artery graft to the left anterior descending , saphenous vein to the diagonal, and saphenous vein to the obtuse marginal on by Dr. Benavides at [facility]. MPI of 01/29/17 did not show any ischemia or infarction and LVEF was 63% Normal global left ventricular systolic function. Left ventricular ejection fraction was 60% on cardiac catheterization prior to coronary artery bypass surgery. Echo of 01/24/17: LVEF 55-60%, mild to mod LAE, PASP 25-30 mmHg, triv to mild MR & TR & PI, no valvular stenosis Chest wall pain following sternotomy, which has improved Gastroesophageal reflux Hyperlipidemia, tolerating low dose statin therapy Relative intolerance to statin therapy, but he has been tolerating low dose Pravachol Maturity onset diabetes mellitus with a history of diabetic gastroparesis which causes chronic epigastric discomfort, he follows with Dr. Esparza [facility] in [place], [place]. Chronic prostatitis, he follows with Dr. Rockwell Irritable bowel syndrome Depression which he is following with Dr. Paoni Sleep apnea which he has had surgical treatment in 2000 associated with RLS and follows with Dr. Sanchez Non-specific bilat leg discomfort, now resolved. No evidence of any significant obstructive PAD on ANDREY of 05/18/15 Carotid u/s of June 08, 2016 showed minimal bilat carotid plaque without evidence of hemodynamic significance Plan: Complex management issue. Anemia requiring transfusion d/t suspected GI bleed which is being managed per surgical services. From a stroke and cardiac standpoint, continuation of antiplatelet therapy is important. We feel from a cardiac stand point it is reasonable to proceed with endoscopy as determined by surgical services. We do advise resumption of ASA DANII from surgical standpoint d/t h/o CAD with CABG in 2012. The other issue is that of a stroke as seen on MRI today. We will leave determination of antiplatelet tx for CVA to the medical services. Source of CVA is undetermined We will continue tele to evaluate for possible arrhythmia. If no arrhythmia is found consideration for ILR needs to be considered to evaluate for occult a-fib/ flutter. Scope is planned for later today Continue to monitor lab closely Physician Assessment Physician Assessment Lungs: good bilat air entry Cor: reg A&R * As documented in our note above * Resume antiplatelet therapy if no active source of bleeding found and if bleeding is considered to be controlled * I spoke with him and his and answered questions Clinical Quality Measures Stroke: Date of last known well: March 12, 2017 HARRISON SCHAFFER March 14, 2017 08:36 APRIL BLUE MD FACP FAC CCDS March 14, 2017 12:50
[2017-03-14] MEDS: NS IV 1000 ML 1,000 ML IV SCH (08:41)
[2017-03-14] MEDS: PANTOPRAZOLE 40 MG/10 ML (PROTONIX) VIAL IV SCH (08:41)
--- NOTE | 2017-03-14 11:48 | Progress Note-Hospitalist ---
Progress Note HPI/CC on Admission CC: CVA w/GIB HPI: This is a 71-year-old white male clinic patient of Dr. CONWAY at [facility] who presented as a direct transfer from [facility] to [facility] ER due to garbled speech while performing yard work and likely sustained a stroke. He also was passing blood per rectum and had been doing that on and off for the last several weeks but it intensified yesterday to the point that it filled the toilet. He was found to have a presumed TIA versus stroke so he was transferred to higher level care to [facility] and stroke Center at was notified and due to the fact of the unknown exact time of the event he was not a TPA candidate in addition to active GI bleeding. At this current time patient reports that he had a syncopal episode that was documented with bradycardia 40s this morning because he was holding the bloody stool tightly with increased rectal tone because he was afraid he was going to mask the bed but then when he got up fainted. Resuscitation efforts were initiated but none were needed since he did recover quickly. He has received 1 unit of blood thus far and did have a great deal of blood in the toilet this morning. MRI was done as ordered and it did show acute CVA but once again very difficult case considering the active bleeding he is having poses a significant risk for life-threatening bleeding if antiplatelet therapy and or anti-coagulation therapy were initiated. Carotid ultrasound will be repeated since he did have some mild disease noted last year and endoscopy will be performed by Dr. Hare while closely monitoring his hemoglobin and hematocrit. Progress Notes/Assess & Plan Date Seen 03/14/17 Admission Dx/Process Assessment: Acute CVA of unknown time of occurrence and not a TPA candidate due to active GI bleeding Anemia due to GI bleeding received 1 unit of packed red blood cell transfusion uncomplicated Syncopal episode due to vasovagal syncope with documented bradycardia of 40 on telemetry while in ICU early this morning with increased rectal tone to keep in melanic stools Coronary artery bypass graft previous bypass surgery [address] Benavides [facility] mild carotid artery stenosis on ultrasound 1 year ago Kidney stones Irritable bowel syndrome BPH Diagonsis/Assessment & Plan Chart Review: BP 170/91 Hgb 9.6 CMP normal auxiliary equipment tender: EGD and colonoscopy are scheduled for this afternoon. Pt has had two bloody stools Pt received 1 unit of blood total since admit Patient Interview: Pt has been ambulating and confirms having BMs Physical exam stable. Lungs sound perfect. Pt was informed that he will have his scopes done today Pt states that would like to eat but understands that this is not possible until after the scopes are completed. 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 and not a TPA candidate due to active GI bleeding Anemia due to GI bleeding received 1 unit of packed red blood cell transfusion uncomplicated s/p Syncopal episode due to vasovagal syncope with documented bradycardia of 40 on telemetry while in ICU early this morning with increased rectal tone to keep in melanic stools Coronary artery bypass graft previous bypass surgery [address] Benavides [facility] mild carotid artery stenosis on ultrasound 1 year ago Kidney stones Irritable bowel syndrome BPH Plan: Therapy evaluation for new stroke with word finding difficulties Nothing by mouth in preparation for endoscopy Fall risk s/p Vasovagal syncope requiring CODE BLUE evaluation but recovered quickly Transfuse as necessary PPI Possible DC tomorrow if scope findings allow Scribed by Bella Leo under the direct supervision of Dr. Walsh. MIKI WALSH DO March 14, 2017 11:48
--- NOTE | 2017-03-14 13:00 | Progress Note ---
Subjective Subjective/Events-last exam Patient with bloody bm's. Liquid stools after prep. Hgb stable. No new complaints. Denies n/v fever sweats chills shortness of breath or chest pain. Objective Exam Vital Signs Date Time Temp Pulse Resp B/P (MAP) Pulse Ox O2 Delivery O2 Flow Rate FiO2 03/14/17 10:00 74 23 129/69 100 Room Air 03/14/17 08:35 98.6 65 18 170/91 100 Room Air 03/14/17 08:00 57 20 150/92 100 Room Air 03/14/17 07:00 68 11 151/92 95 Room Air 03/14/17 07:00 67 03/14/17 06:00 64 14 144/91 98 Room Air 03/14/17 05:00 98 23 96 Room Air 03/14/17 04:00 98 23 157/79 96 Room Air 03/14/17 03:00 57 17 137/79 97 Room Air 03/14/17 02:00 62 19 161/84 98 Room Air 03/14/17 01:00 66 28 134/68 99 Room Air 03/14/17 01:00 66 03/14/17 00:00 74 15 134/78 96 Room Air 03/13/17 23:00 68 14 142/67 98 Room Air 03/13/17 22:00 73 19 159/90 98 Room Air 03/13/17 21:00 84 13 128/75 95 Room Air 03/13/17 20:00 74 25 141/86 99 Room Air 03/13/17 19:58 100 03/13/17 19:00 73 03/13/17 19:00 85 32 134/81 100 Room Air 03/13/17 18:00 64 26 147/84 100 Room Air 03/13/17 17:00 65 11 149/82 100 Room Air 03/13/17 16:15 96.9 03/13/17 16:00 76 17 143/84 95 Room Air 03/13/17 15:00 96 16 Room Air 03/13/17 14:00 73 11 133/69 98 Room Air 03/13/17 13:00 70 12 144/93 99 Room Air 03/13/17 13:00 73 I & O 03/14/17 07:00 Intake Total 2520 ml Balance 2520 ml Capillary Refill : Less Than 3 Seconds General Appearance: No Apparent Distress HEENT: PERRL/EOMI, Normal ENT Inspection, Pharynx Normal Neck: Full Range of Motion, Normal Inspection, Non Tender, Supple, Carotid Bruit Respiratory: No Accessory Muscle Use, No Respiratory Distress Cardiovascular: Regular Rate, Rhythm Peripheral Pulses: 2+ Dorsalis Pedis (R), 2+ Left Dors-Pedis (L), 2+ Radial Pulses (R), 2+ Radial Pulses (L) Gastrointestinal: soft, no organomegaly Extremity: Non Tender, No Pedal Edema Neurologic/Psychiatric: Alert, Oriented x3, No Motor/Sensory Deficits, Normal Mood/Affect, Other (subtle word finding difficulties) Skin: Normal Color, Warm/Dry Lymphatic: No Adenopathy Results Lab Laboratory Tests 03/13/17 17:33: Glucometer 103 03/13/17 18:01: Hemoglobin 9.7L, Hematocrit 30L 03/14/17 00:05: Hemoglobin 8.7L, Hematocrit 27L 03/14/17 05:19: Hemoglobin 9.6L, Hematocrit 30L, Sodium Level 139, Potassium Level 3.9, Chloride Level 108H, Carbon Dioxide Level 20L, Anion Gap 11, Blood Urea Nitrogen 15, Creatinine 0.90, Estimat Glomerular Filtration Rate > 60, BUN/ Creatinine Ratio 17, Glucose Level 123H, Calcium Level 8.4L, Phosphorus Level 2.3, Magnesium Level 2.1, Total Bilirubin 0.7, Aspartate Amino Transf (AST/SGOT ) 15, Alanine Aminotransferase (ALT/SGPT) 11, Alkaline Phosphatase 49, Total Protein 6.1L, Albumin 3.9 03/14/17 12:15: Glucometer 94 03/14/17 12:16: Hemoglobin 9.1L, Hematocrit 29L Microbiology 03/12/17 MRSA Screen - Final, Complete MRSA not isolated Assessment/Plan Assessment/Plan Assessment/Plan TIA GI Bleed upper vs lower patient on Protonix BID plan egd colonoscopy today patient and family understand risks and benefits Endoscopy today. Clinical Quality Measures DVT/VTE Risk/Contraindication: Risk Factor Score Per Nursin RFS Level Per Nursing on Admit: 2=Moderate Stroke: Date of last known well: March 12, 2017 ANN MARIE KUHN DO March 14, 2017 1:00 pm
--- NOTE | 2017-03-14 13:28 | Occupational Therapy Eval ---
OT Evaluation-General/PLF Medical Diagnosis Admission Date March 12, 2017 at 17:27 Medical Diagnosis: CVA Onset Date: March 12, 2017 Therapy Diagnosis Therapy Diagnosis: debility Height/Weight Height (Feet): 5 Height (Inches): 8.00 Weight (Pounds): 168 Weight (Ounces): 0.0 Precautions Precautions/Isolations: Standard Precautions Safety Interventions: None Referral Physician: Merlyn Medical History Pertinent Medical History: CABG, CAD, DM, HTN Additional Medical History TURP, sinus surgery, irritable bowel, kidney stones. Reviewed History: Yes Social History Home: Multilevel (split level) Current Living Status: Spouse Entry Into Home: Stairs With Railing ADL-Prior Level of Function ADL PLOF Comments Pt reports being active and independent with all ADLs and mobility. Pt has been doing yard work. Drive Self: Yes OT Current Status Subjective Pt in bed, agrees to therapy. Pt has no c/o pain. Mental Status/Objective Patient Orientation: Normal For Age Attachments: IV, Telemetry Current Glasses/Contacts: Yes (reading) Hand Dominance: Right Upper Extremity ROM Grossly WFL Upper Extremity Coordination Intact Upper Extremity Sensation Intact per pt report Upper Extremity Strength Grossly WFL ADL-Treatment ADL-Current Pt supine to sit with modified independence. Pt donned socks independently at EOB. Sit to stand without assistance. Pt demonstrated ability to perform transfer safely without assistance. Pt states he has been getting up to commode independently. States he can complete toileting without assistance, but spouse has been assisting as needed while in ICU secondary to multiple lines. Pt has no LOB with mobility during session. Pt states he is at baseline and has no questions or concerns regarding ADL completion or transfers. Spouse is present and agrees. Pt states he is just waiting to see what his tests show this afternoon. Pt denied further needs. Pt back to bed with modified independence, needs met and spouse present. Functional [place] Measure 0=Not Assessed/NA 4=Minimal Assistance 1=Total Assistance 5=Supervision or Setup 2=Maximal Assistance 6=Modified [place] 3=Moderate Assistance 7=Complete IndependenceIRFPAI Quality Coding Scale 6 Independent with activity with or without an assistive device 5 Patient requires set up or clean up by helper. Patient completes activity by themselves 4 Supervision or touching assist (CGA). [place] provide cues , steadying assist 3 The helper provides less than half the effort to complete the activity 2 The helper provides more than half the effort to complete the activity 1 Dependent. The helper does all the effort to complete an activity 7 Patient refused to complete or attempt activity 9 The patient did not perform the activity before the current illness or injury 88 Not attempted due to Medical conditions or safety concerns Education OT Patient Education: Rehab process Teaching Recipient: Patient Teaching Methods: Discussion Response to Teaching: Verbalize Understanding OT Education/Plan Problem List/Assessment Assessment: No Skilled OT Needs ID'd Pt demonstrates good strength in bilateral UE. Pt is able to complete ADLs and transfers safely and independently. No LOB noted during session. Pt states he is at baseline, spouse confirms. Pt denies questions or concerns. No skilled OT intervention indicated at this time. D/C OT. RN notified. Discharge Recommendations Plan/Recommendations: Discontinue OT Treatment Plan/Plan of Care Treatment,Training & Education: No Treatment Duration: March 14, 2017 (evaluation only) Visits Per Week: 1- evaluation only Agreement: Yes Rehab Potential: Good Time/GCodes Start Time: 12:51 Stop Time: 13:05 Total Time Billed (hr/min): 14 Billed Treatment Time 1 visit, CLIFFORD(14minutes) JASON BLOOM OT March 14, 2017 13:28
--- NOTE | 2017-03-14 13:42 | Progress Note ---
Subjective Subjective/Events-last exam Patient resting in bed. Easily aroused. Objective Exam Vital Signs Date Time Temp Pulse Resp B/P (MAP) Pulse Ox O2 Delivery O2 Flow Rate FiO2 03/14/17 12:15 98.4 03/14/17 10:00 74 23 129/69 100 Room Air 03/14/17 08:35 98.6 65 18 170/91 100 Room Air 03/14/17 08:00 57 20 150/92 100 Room Air 03/14/17 07:00 68 11 151/92 95 Room Air 03/14/17 07:00 67 03/14/17 06:00 64 14 144/91 98 Room Air 03/14/17 05:00 98 23 96 Room Air 03/14/17 04:00 98 23 157/79 96 Room Air 03/14/17 03:00 57 17 137/79 97 Room Air 03/14/17 02:00 62 19 161/84 98 Room Air 03/14/17 01:00 66 28 134/68 99 Room Air 03/14/17 01:00 66 03/14/17 00:00 74 15 134/78 96 Room Air 03/13/17 23:00 68 14 142/67 98 Room Air 03/13/17 22:00 73 19 159/90 98 Room Air 03/13/17 21:00 84 13 128/75 95 Room Air 03/13/17 20:00 74 25 141/86 99 Room Air 03/13/17 19:58 100 03/13/17 19:00 73 03/13/17 19:00 85 32 134/81 100 Room Air 03/13/17 18:00 64 26 147/84 100 Room Air 03/13/17 17:00 65 11 149/82 100 Room Air 03/13/17 16:15 96.9 03/13/17 16:00 76 17 143/84 95 Room Air 03/13/17 15:00 96 16 Room Air 03/13/17 14:00 73 11 133/69 98 Room Air I & O 03/14/17 07:00 Intake Total 2520 ml Balance 2520 ml Capillary Refill : Less Than 3 Seconds General Appearance: No Apparent Distress HEENT: PERRL/EOMI, Normal ENT Inspection, Pharynx Normal Neck: Full Range of Motion, Normal Inspection Respiratory: Chest Non Tender, No Accessory Muscle Use, No Respiratory Distress Cardiovascular: Regular Rate, Rhythm Peripheral Pulses: 2+ Dorsalis Pedis (R), 2+ Left Dors-Pedis (L), 2+ Radial Pulses (R), 2+ Radial Pulses (L) Gastrointestinal: soft, no organomegaly Extremity: Non Tender, No Pedal Edema Neurologic/Psychiatric: Alert, Oriented x3, No Motor/Sensory Deficits, Normal Mood/Affect, Other (subtle word finding difficulties) Skin: Normal Color, Warm/Dry Lymphatic: No Adenopathy Results Lab Laboratory Tests Test 03/12/17 18:20 03/13/17 01:00 03/13/17 04:05 03/13/17 04:15 Range/Units Hemoglobin 9.3 L 8.5 L 8.3 L 13.3-17.7 G/DL D-Dimer 0.41 0.00-0.49 UG/ML Potassium Level 3.9 4.1 3.6-5.0 MMOL/L Magnesium Level 1.9 2.1 1.8-2.4 MG/DL Troponin I < 0.30 <0.30 NG/ML White Blood Count 5.3 4.3-11.0 10^3/uL Red Blood Count 3.37 L 4.35-5.85 10^6/uL Hematocrit 27 L 40-54 % Mean Corpuscular Volume 79 L 80-99 FL Mean Corpuscular Hemoglobin 25 25-34 PG Mean Corpuscular Hemoglobin Concent 31 L 32-36 G/DL Red Cell Distribution Width 15.4 H 10.0-14.5 % Platelet Count 177 130-400 10^3/uL Mean Platelet Volume 12.6 H 7.4-10.4 FL Neutrophils (%) (Auto) 59 42-75 % Lymphocytes (%) (Auto) 21 12-44 % Monocytes (%) (Auto) 14 H 0-12 % Eosinophils (%) (Auto) 5 0-10 % Basophils (%) (Auto) 1 0-10 % Neutrophils # (Auto) 3.1 1.8-7.8 X 10^3 Lymphocytes # (Auto) 1.1 1.0-4.0 X 10^3 Monocytes # (Auto) 0.7 0.0-1.0 X 10^3 Eosinophils # (Auto) 0.3 0.0-0.3 10^3/uL Basophils # (Auto) 0.0 0.0-0.1 10^3/uL Sodium Level 141 135-145 MMOL/L Chloride Level 111 H 98-107 MMOL/L Carbon Dioxide Level 22 21-32 MMOL/L Anion Gap 8 5-14 MMOL/L Blood Urea Nitrogen 23 H 7-18 MG/DL Creatinine 0.91 0.60-1.30 MG/DL Estimat Glomerular Filtration Rate > 60 BUN/Creatinine Ratio 25 Glucose Level 91 70-105 MG/DL Calcium Level 8.0 L 8.5-10.1 MG/DL Phosphorus Level 3.6 2.3-4.7 MG/DL Total Bilirubin 0.4 0.1-1.0 MG/DL Aspartate Amino Transf (AST/SGOT) 12 5-34 U/L Alanine Aminotransferase (ALT/SGPT) 9 0-55 U/L Alkaline Phosphatase 43 40-136 U/L Total Protein 5.6 L 6.4-8.2 G/DL Albumin 3.6 3.2-4.5 G/DL Glucometer 140 H 70-110 MG/DL Test 03/13/17 06:09 03/13/17 11:44 03/13/17 12:07 03/13/17 17:33 Range/Units Hemoglobin 8.0 L 9.0 L 13.3-17.7 G/DL Prothrombin Time 14.3 12.2-14.7 SEC INR Comment 1.1 0.8-1.4 Activated Partial Thromboplast Time 25 24-35 SEC Lactic Acid Level 1.27 0.50-2.00 MMOL/L Troponin I < 0.30 <0.30 NG/ML Albumin 3.4 3.2-4.5 G/DL Glucometer 108 103 70-110 MG/DL Hematocrit 28 L 40-54 % Test 03/13/17 18:01 03/14/17 00:05 03/14/17 05:19 03/14/17 12:15 Range/Units Hemoglobin 9.7 L 8.7 L 9.6 L 13.3-17.7 G/DL Hematocrit 30 L 27 L 30 L 40-54 % Sodium Level 139 135-145 MMOL/L Potassium Level 3.9 3.6-5.0 MMOL/L Chloride Level 108 H 98-107 MMOL/L Carbon Dioxide Level 20 L 21-32 MMOL/L Anion Gap 11 5-14 MMOL/L Blood Urea Nitrogen 15 7-18 MG/DL Creatinine 0.90 0.60-1.30 MG/DL Estimat Glomerular Filtration Rate > 60 BUN/Creatinine Ratio 17 Glucose Level 123 H 70-105 MG/DL Calcium Level 8.4 L 8.5-10.1 MG/DL Phosphorus Level 2.3 2.3-4.7 MG/DL Magnesium Level 2.1 1.8-2.4 MG/DL Total Bilirubin 0.7 0.1-1.0 MG/DL Aspartate Amino Transf (AST/SGOT) 15 5-34 U/L Alanine Aminotransferase (ALT/SGPT) 11 0-55 U/L Alkaline Phosphatase 49 40-136 U/L Total Protein 6.1 L 6.4-8.2 G/DL Albumin 3.9 3.2-4.5 G/DL Glucometer 94 70-110 MG/DL Test 03/14/17 12:16 Range/Units Hemoglobin 9.1 L 13.3-17.7 G/DL Hematocrit 29 L 40-54 % Laboratory Tests 03/13/17 17:33: Glucometer 103 03/13/17 18:01: Hemoglobin 9.7L, Hematocrit 30L 03/14/17 00:05: Hemoglobin 8.7L, Hematocrit 27L 03/14/17 05:19: Hemoglobin 9.6L, Hematocrit 30L, Sodium Level 139, Potassium Level 3.9, Chloride Level 108H, Carbon Dioxide Level 20L, Anion Gap 11, Blood Urea Nitrogen 15, Creatinine 0.90, Estimat Glomerular Filtration Rate > 60, BUN/ Creatinine Ratio 17, Glucose Level 123H, Calcium Level 8.4L, Phosphorus Level 2.3, Magnesium Level 2.1, Total Bilirubin 0.7, Aspartate Amino Transf (AST/SGOT ) 15, Alanine Aminotransferase (ALT/SGPT) 11, Alkaline Phosphatase 49, Total Protein 6.1L, Albumin 3.9 03/14/17 12:15: Glucometer 94 03/14/17 12:16: Hemoglobin 9.1L, Hematocrit 29L Microbiology 03/12/17 MRSA Screen - Final, Complete MRSA not isolated Assessment/Plan Assessment/Plan Assessment/Plan TIA GI Bleed upper vs lower- H&H 9.1 and 29 patient on Protonix BID plan egd colonoscopy today Clinical Quality Measures DVT/VTE Risk/Contraindication: Risk Factor Score Per Nursin RFS Level Per Nursing on Admit: 2=Moderate Stroke: Date of last known well: March 12, 2017 ARJUN CISNEROS APRN March 14, 2017 13:42
[2017-03-14] MEDS ORDERED: proPOfol 200 MG/20 ML (DIPRIVAN) VIAL IV ONE ×2 (14:30→15:21)
[2017-03-14] MEDS ORDERED: NS IV 1000 ML 1,000 ML ONE (14:41)
[2017-03-14] MEDS ORDERED: ESMOLOL 100 MG/10 ML (BREVIBLOC) VIAL ONE (14:51)
--- NOTE | 2017-03-14 15:17 | Physical Therapy Progress Note ---
Therapy Progress Note Patient is unavailable due to procedure. PT to resume in [facility]YLER Canales PT March 14, 2017 15:17
--- NOTE | 2017-03-14 16:16 | Progress Note-Post Operative ---
Post-Operative Progess Note Surgeon (s)/School Standards Coach (s) Surgeon ANN MARIE KUHN DO School Standards Coach: na Pre-Operative Diagnosis gi bleed Post-Operative Diagnosis slight duodenitis, sever diverticulosis sigmoid and descending colon Procedure & Operative Findings Date of Procedure 03/14/17 Procedure Preformed/Findings egd c biopsy and colonoscopy Anesthesia Type per mda Estimated Blood Loss Estimated blood loss (mL): none Specimens/Packing Specimens Removed antrum Packing: na ANN MARIE KUHN DO March 14, 2017 4:16 pm
[2017-03-14] MEDS ORDERED: SIMvastatin 10 MG (ZOCOR) TAB PO SCH (21:00)
[2017-03-14] MEDS ORDERED: doxAzosin 2 MG (CARDURA) TAB PO SCH (21:00)
[2017-03-14] MEDS: ENALAPRIL 5 MG (VASOTEC) TAB PO SCH (21:31)
[2017-03-15] VITALS (12 sets, daily range): BP systolic 108–151; BP diastolic 62–92
--- NOTE | 2017-03-15 04:13 | OPERATIVE REPORT ---
DATE OF SERVICE: 03/14/2017 PREOPERATIVE DIAGNOSIS: Gastrointestinal bleed. POSTOPERATIVE DIAGNOSES: Slight duodenitis, severe diverticulosis of the sigmoid and descending colon. PROCEDURE: EGD with biopsy and colonoscopy. SURGEON: Ann Marie Hare DO ANESTHESIA: Per MDA. ESTIMATED BLOOD LOSS: None. COMPLICATIONS: None. INDICATIONS: The patient is a 71-year-old male admitted for gastrointestinal bleed and TIA. He understands risks and benefits of procedure and wished to proceed with procedure. Consent was signed and on the chart. DESCRIPTION OF PROCEDURE: The patient was taken to the endoscopy suite, placed in left lateral recumbent position. Time-out was performed. The scope was inserted into mouth, down into esophagus, stomach and then into the duodenum. There are no polyps, masses or ulcerations present within the duodenum. In the first part of the duodenum, there are some small punctate areas of erythematous changes. The scope was then slowly retracted back into the stomach where it was further insufflated. Biopsy of the antrum was obtained. There are no polyps, masses or ulcerations. There are some small polyps that appeared benign, present. The scope was retroflexed noting no hiatal hernia, no other pathology noted. The scope was returned to its normal position, slowly withdrawn back into the distal esophagus. There were no erythematous changes. No polyps, masses or ulcerations. Scope was slowly retracted until completely removed, noting no other pathology. Digital rectal exam was performed. There were no palpable polyps, masses or ulcerations. Scope was inserted into the rectum and advanced all the way to the cecum. This had some slight difficulty due to the severe diverticulosis present within the sigmoid and descending colon. Once the scope was all the way to the cecum, the scope was then slowly retracted. There were no polyps, masses or ulcerations within the cecum, ascending and transverse colon. The scope was continuously slowly retracted back, again noting severe diverticular disease through the descending and sigmoid colon. There were no polyps, masses or ulcerations. No signs of active bleeding throughout the entire colon. Once in the rectum, scope was also retroflexed, noting no other pathology. The scope was returned to its normal position, slowly withdrawn until completely removed. There were no signs of active bleeding anywhere with visualization of endoscopy. With the patient having bright red bleeding recently, would suspect diverticular bleed. With the slight duodenitis, we will continue the patient on Protonix. The patient would need repeat endoscopy if significant rebleed present. Would continue to monitor hemoglobin and will start diet. Job ID: [id number] DocumentID: [id number] Dictated Date: 03/14/2017 16:19:59 Engineer Internship Date: 03/15/2017 02:27:00 Dictated By: ANN MARIE HARE DO
[2017-03-15 04:34] LABS: BASOPHILS % (AUTO) 1 % (0-10); EOSINOPHILS # (AUTO) 0.2 10^3/uL (0.0-0.3); EOSINOPHILS % (AUTO) 5 % (0-10); LYMPHOCYTES # (AUTO) 0.8 X 10^3 (1.0-4.0); LYMPHOCYTES % (AUTO) 15 % (12-44); MEAN CORPUSCULAR HEMOGLOBIN 25 PG (25-34); MEAN CORPUSCULAR HGB CONC 32 G/DL (32-36); MEAN CORPUSCULAR VOLUME 79 FL (80-99); MEAN PLATELET VOLUME 12.2 FL (7.4-10.4); MONOCYTES # (AUTO) 0.6 X 10^3 (0.0-1.0); MONOCYTES % (AUTO) 13 % (0-12); NEUTROPHILS # (AUTO) 3.3 X 10^3 (1.8-7.8); NEUTROPHILS % (AUTO) 67 % (42-75); PLATELET COUNT 182 10^3/uL (130-400); RED BLOOD COUNT 3.52 10^6/uL (4.35-5.85); RED CELL DISTRIBUTION WIDTH 15.4 % (10.0-14.5); WHITE BLOOD COUNT 4.9 10^3/uL (4.3-11.0)
[2017-03-15 04:54] LABS: ANION GAP 8 MMOL/L (5-14); BLOOD UREA NITROGEN 12 MG/DL (7-18); BUN/CREATININE RATIO 15; CALCIUM 8.2 MG/DL (8.5-10.1); CARBON DIOXIDE 22 MMOL/L (21-32); CHLORIDE 109 MMOL/L (98-107); GFR ESTIMATED > 60; GLUCOSE 102 MG/DL (70-105); MAGNESIUM 2.1 MG/DL (1.8-2.4); PHOSPHORUS 3.2 MG/DL (2.3-4.7); SODIUM 139 MMOL/L (135-145)
[2017-03-15] MEDS: POTASSIUM CL 10MEQ/50ML IVPB 50 ML IV SCH (05:03)
[2017-03-15] MEDS: MAGNESIUM 1 GM/100 ML IVPB 100 ML IV SCH (05:03)
[2017-03-15] MEDS: KCL 20 MEQ TAB (K-DUR) PO SCH (05:03)
--- NOTE | 2017-03-15 06:43 | Pulmonary Progress Note ---
Exam Exam Vital Signs Date Time Temp Pulse Resp B/P (MAP) Pulse Ox O2 Delivery O2 Flow Rate FiO2 03/15/17 06:08 65 15 120/78 Room Air 03/15/17 05:05 59 15 128/68 99 Room Air 03/15/17 04:09 98.7 Room Air 03/15/17 04:00 60 14 115/66 100 Room Air 03/15/17 03:00 61 16 124/71 96 Room Air 03/15/17 02:00 62 14 108/62 98 Room Air 03/15/17 01:00 70 20 129/72 95 Room Air 03/15/17 00:59 73 03/15/17 00:21 98.2 Room Air 03/15/17 00:00 73 22 140/92 95 Room Air 03/14/17 23:00 61 16 133/82 97 Room Air 03/14/17 22:00 67 22 148/81 98 Room Air 03/14/17 21:00 72 24 150/75 100 Room Air 03/14/17 20:00 67 8 168/91 99 Room Air 03/14/17 19:30 97.8 Room Air 03/14/17 19:19 100 03/14/17 19:02 66 03/14/17 19:00 63 13 177/95 100 Room Air 03/14/17 18:00 67 28 159/95 92 Room Air 03/14/17 16:30 96.4 64 20 149/85 100 Room Air 03/14/17 16:00 149/85 Room Air 03/14/17 14:00 65 20 169/92 99 Room Air 03/14/17 13:00 93 03/14/17 13:00 71 23 137/88 Room Air 03/14/17 12:15 98.4 03/14/17 12:00 65 23 167/92 99 Room Air 03/14/17 11:00 60 19 164/93 100 Room Air 03/14/17 10:00 74 23 129/69 100 Room Air 03/14/17 08:35 98.6 65 18 170/91 100 Room Air 03/14/17 08:00 57 20 150/92 100 Room Air 03/14/17 07:00 68 11 151/92 95 Room Air 03/14/17 07:00 67 I & O 03/15/17 07:00 Intake Total 950 ml Balance 950 ml General Appearance: No Apparent Distress HEENT: PERRL/EOMI, Normal ENT Inspection, Pharynx Normal Neck: Full Range of Motion, Normal Inspection Respiratory: Chest Non Tender, No Accessory Muscle Use, No Respiratory Distress Cardiovascular: Regular Rate, Rhythm Capillary Refill: Less Than 3 Seconds Peripheral Pulses: 2+ Dorsalis Pedis (R), 2+ Left Dors-Pedis (L), 2+ Radial Pulses (R), 2+ Radial Pulses (L) Gastrointestinal: soft, no organomegaly Extremity: Non Tender, No Pedal Edema Neurologic/Psychiatric: Alert, Oriented x3, No Motor/Sensory Deficits, Normal Mood/Affect, Other (subtle word finding difficulties) Skin: Normal Color, Warm/Dry Lymphatic: No Adenopathy Results Lab Laboratory Tests 03/13/17 12:07 03/13/17 18:01 03/14/17 00:05 03/14/17 05:19 03/14/17 12:16 03/15/17 04:05 Assessment/Plan Assessment/Plan GIB s/p transfusion -Surgery following s//p colonoscopy Severe diverticulosis symptomatic bradycardia -Cardiology following Clinical Quality Measures DVT/VTE Risk/Contraindication: Risk Factor Score Per Nursin RFS Level Per Nursing on Admit: 2=Moderate Stroke: Date of last known well: March 12, 2017 KAVIN CHAWLA DO March 15, 2017 06:42
[2017-03-15] MEDS: NS IV 1000 ML 1,000 ML IV SCH (06:49)
--- NOTE | 2017-03-15 08:20 | Progress Note-Cardiology ---
Cardiology SOAP Progress Note Subjective: No cp or palp or syncope or shortness of breath. He feels that he has recovered from his neuro deficits completely Objective: I&O/Vital Signs Vital Sign - Last 12Hours 03/14/17 03/14/17 03/14/17 03/15/17 21:00 22:00 23:00 00:00 Pulse 72 67 61 73 Resp 24 22 16 22 B/P (MAP) 150/75 148/81 133/82 140/92 Pulse Ox 100 98 97 95 O2 Delivery Room Air Room Air Room Air Room Air 03/15/17 03/15/17 03/15/17 03/15/17 00:21 00:59 01:00 02:00 Temp 98.2 Pulse 73 70 62 Resp 20 14 B/P (MAP) 129/72 108/62 Pulse Ox 95 98 O2 Delivery Room Air Room Air Room Air 03/15/17 03/15/17 03/15/17 03/15/17 03:00 04:00 04:09 05:05 Temp 98.7 Pulse 61 60 59 Resp 16 14 15 B/P (MAP) 124/71 115/66 128/68 Pulse Ox 96 100 99 O2 Delivery Room Air Room Air Room Air Room Air 03/15/17 06:08 Pulse 65 Resp 15 B/P (MAP) 120/78 O2 Delivery Room Air Intake and Output 03/15/17 00:00 Intake Total 850 ml Balance 850 ml Weight (Pounds): 167 Weight (Ounces): 9.0 Weight (Calculated Kilograms): 76.036086 Constitutional: appears stated age, No apparent distress, well-developed, well- nourished Respiratory: No accessory muscle use, No respiratory distress, lungs clear to auscultation Cardiovascular: regular rate-rhythm, No JVD, S1 and S2 Gastrointestional: tender, soft, audible bowel sounds, No spleenomegaly Extremities: No clubbing, No cyanosis, No significant edema Neurologic/Psychiatric: alert, oriented x 3, No facial droop, No motor weakness , grossly intact (speech is better today) Skin: No rash, No ulcerations Results/Procedures: Labs Laboratory Tests 03/14/17 12:15: Glucometer 94 03/14/17 12:16: Hemoglobin 9.1L, Hematocrit 29L 03/15/17 04:05: Hemoglobin 8.8L, Hematocrit 28L, White Blood Count 4.9, Red Blood Count 3.52L, Mean Corpuscular Volume 79L, Mean Corpuscular Hemoglobin 25, Mean Corpuscular Hemoglobin Concent 32, Red Cell Distribution Width 15.4H, Platelet Count 182, Mean Platelet Volume 12.2H, Neutrophils (%) (Auto) 67, Lymphocytes (%) (Auto) 15 , Monocytes (%) (Auto) 13H, Eosinophils (%) (Auto) 5, Basophils (%) (Auto) 1, Neutrophils # (Auto) 3.3, Lymphocytes # (Auto) 0.8L, Monocytes # (Auto) 0.6, Eosinophils # (Auto) 0.2, Basophils # (Auto) 0.0, Sodium Level 139, Potassium Level 4.0, Chloride Level 109H, Carbon Dioxide Level 22, Anion Gap 8, Blood Urea Nitrogen 12, Creatinine 0.80, Estimat Glomerular Filtration Rate > 60, BUN/ Creatinine Ratio 15, Glucose Level 102, Calcium Level 8.2L, Phosphorus Level 3.2 , Magnesium Level 2.1 Microbiology 03/12/17 MRSA Screen - Final, Complete MRSA not isolated A/P: Assessment: Acute CVA per MRI of 03/13/17 - a 2 cm area of acute infarction in the left periventricular white matter just above the level of the basal ganglia. Management per medical services Anemia due to GI bleed, managed by Dr Hare during this hosp, now stopped Endoscopy of 03/14/[address] Hare: Slight duodenitis, severe diverticulosis of the sigmoid and descending colon Hypertension Prostate enlargement and urinary problems for which he needs therapy with doxazosin Coronary artery disease with a history of coronary artery bypass surgery, consisting of left internal mammary artery graft to the left anterior descending , saphenous vein to the diagonal, and saphenous vein to the obtuse marginal on by Dr. Benavides at [facility]. MPI of 01/29/17 did not show any ischemia or infarction and LVEF was 63% Normal global left ventricular systolic function. Left ventricular ejection fraction was 60% on cardiac catheterization prior to coronary artery bypass surgery. Echo of 01/24/17: LVEF 55-60%, mild to mod LAE, PASP 25-30 mmHg, triv to mild MR & TR & PI, no valvular stenosis Chest wall pain following sternotomy, improved/resolved Gastroesophageal reflux Hyperlipidemia, tolerating low dose statin therapy Relative intolerance to statin therapy, but he has been tolerating low dose Pravachol Maturity onset diabetes mellitus with a history of diabetic gastroparesis which causes chronic epigastric discomfort, he follows with Dr. Esparza sample taker operator in [place], [place]. Chronic prostatitis, he follows with Dr. Rockwell Irritable bowel syndrome Depression which he is following with Dr. Dent Sleep apnea which he has had surgical treatment in 2000 associated with RLS and follows with Dr. Sanchez Non-specific bilat leg discomfort, now resolved. No evidence of any significant obstructive PAD on ANDREY of 05/18/15 Carotid u/s of 03/13/17 at [facility]: Estimated underlying stenosis is in the range of 0-40% bilaterally. Plan: I reviewed the endoscopy report and the notes of the other consultants Tele has not indicated any atrial fib Ok for discharge from card standpoint We recommend prolonged outpatient card amb monitoring to look for any a fib Given no active GI bleed on endoscopy and given CVA and CAD, we recommend resumption of antiplatelet therapy. He had his stroke while on low dose aspirin. Aspirin may also be more of a local GI irritant (and perhaps more likely to cause GI bleed). We recommend switching antiplatelet therapy to Plavix We have recommended close outpatient f/u I spoke with him and his in detail and answered CV-related questions Clinical Quality Measures Stroke: Date of last known well: March 12, 2017 PARIL BLUE MD FACP [facility] March 15, 2017 08:20
--- NOTE | 2017-03-15 08:36 | Progress Note ---
Subjective Subjective/Events-last exam Patient with no more bloody bowel movement. No new complaints. Hgb 8.8 from 9.1. EGD and Colonoscopy showing slight duodenitis and severe diverticulosis. No new complaints. Denies n/v fever sweats chills shortness of breath or chest pain. Wants to go home. Objective Exam Vital Signs Date Time Temp Pulse Resp B/P (MAP) Pulse Ox O2 Delivery O2 Flow Rate FiO2 03/15/17 07:00 64 03/15/17 06:08 65 15 120/78 Room Air 03/15/17 05:05 59 15 128/68 99 Room Air 03/15/17 04:09 98.7 Room Air 03/15/17 04:00 60 14 115/66 100 Room Air 03/15/17 03:00 61 16 124/71 96 Room Air 03/15/17 02:00 62 14 108/62 98 Room Air 03/15/17 01:00 70 20 129/72 95 Room Air 03/15/17 00:59 73 03/15/17 00:21 98.2 Room Air 03/15/17 00:00 73 22 140/92 95 Room Air 03/14/17 23:00 61 16 133/82 97 Room Air 03/14/17 22:00 67 22 148/81 98 Room Air 03/14/17 21:00 72 24 150/75 100 Room Air 03/14/17 20:00 67 8 168/91 99 Room Air 03/14/17 19:30 97.8 Room Air 03/14/17 19:19 100 03/14/17 19:02 66 03/14/17 19:00 63 13 177/95 100 Room Air 03/14/17 18:00 67 28 159/95 92 Room Air 03/14/17 16:30 96.4 64 20 149/85 100 Room Air 03/14/17 16:00 149/85 Room Air 03/14/17 14:00 65 20 169/92 99 Room Air 03/14/17 13:00 93 03/14/17 13:00 71 23 137/88 Room Air 03/14/17 12:15 98.4 03/14/17 12:00 65 23 167/92 99 Room Air 03/14/17 11:00 60 19 164/93 100 Room Air 03/14/17 10:00 74 23 129/69 100 Room Air 03/14/17 08:35 98.6 65 18 170/91 100 Room Air I & O 03/15/17 07:00 Intake Total 1950 ml Balance 1950 ml Capillary Refill : Less Than 3 Seconds General Appearance: No Apparent Distress HEENT: PERRL/EOMI, Normal ENT Inspection, Pharynx Normal Neck: Full Range of Motion, Normal Inspection Respiratory: Chest Non Tender, No Accessory Muscle Use, No Respiratory Distress Cardiovascular: Regular Rate, Rhythm Peripheral Pulses: 2+ Dorsalis Pedis (R), 2+ Left Dors-Pedis (L), 2+ Radial Pulses (R), 2+ Radial Pulses (L) Gastrointestinal: soft, no organomegaly Extremity: Non Tender, No Pedal Edema Neurologic/Psychiatric: Alert, Oriented x3, No Motor/Sensory Deficits, Normal Mood/Affect, Other Skin: Normal Color, Warm/Dry Lymphatic: No Adenopathy Results Lab Laboratory Tests 03/14/17 12:15: Glucometer 94 03/14/17 12:16: Hemoglobin 9.1L, Hematocrit 29L 03/15/17 04:05: Hemoglobin 8.8L, Hematocrit 28L, White Blood Count 4.9, Red Blood Count 3.52L, Mean Corpuscular Volume 79L, Mean Corpuscular Hemoglobin 25, Mean Corpuscular Hemoglobin Concent 32, Red Cell Distribution Width 15.4H, Platelet Count 182, Mean Platelet Volume 12.2H, Neutrophils (%) (Auto) 67, Lymphocytes (%) (Auto) 15 , Monocytes (%) (Auto) 13H, Eosinophils (%) (Auto) 5, Basophils (%) (Auto) 1, Neutrophils # (Auto) 3.3, Lymphocytes # (Auto) 0.8L, Monocytes # (Auto) 0.6, Eosinophils # (Auto) 0.2, Basophils # (Auto) 0.0, Sodium Level 139, Potassium Level 4.0, Chloride Level 109H, Carbon Dioxide Level 22, Anion Gap 8, Blood Urea Nitrogen 12, Creatinine 0.80, Estimat Glomerular Filtration Rate > 60, BUN/ Creatinine Ratio 15, Glucose Level 102, Calcium Level 8.2L, Phosphorus Level 3.2 , Magnesium Level 2.1 Microbiology 03/12/17 MRSA Screen - Final, Complete MRSA not isolated Assessment/Plan Assessment/Plan Assessment/Plan TIA GI Bleed likely diverticular bleed Duodenitis patient on Protonix BID hgb stable Discussed with Dr. Stevens will start on Plavix. Patient and understand possible re-bleed. Will follow up with me in 2 weeks. Discussed with family to have blood work Saturday, Saturday or Saturday with Dr. Dent. If any return of symptoms should return at that time for re-evaluation. Clinical Quality Measures DVT/VTE Risk/Contraindication: Risk Factor Score Per Nursin RFS Level Per Nursing on Admit: 2=Moderate Stroke: Date of last known well: March 12, 2017 ANN MARIE KUHN DO March 15, 2017 08:36
[2017-03-15] MEDS ORDERED: CLOPIDOGREL 75 MG (PLAVIX) TABLET PO SCH (09:00)
[2017-03-15] MEDS ORDERED: PANTOPRAZOLE 40 MG (PROTONIX) TAB PO SCH (09:00)
[2017-03-15] MEDS: ENALAPRIL 5 MG (VASOTEC) TAB PO SCH (10:14)
[2017-03-15] MEDS ORDERED: CLOP75TA28 PO (10:50)
--- NOTE | 2017-03-15 11:02 | Physical Therapy Progress Note ---
Therapy Progress Note Patient dismissing to home at independent PLOF with all gross motor skills safely. Spouse present and both agree that patient is at PLOF. DC at this time. 1 visit TYLER SOLIS PT March 15, 2017 11:02
--- NOTE | 2017-03-15 12:06 | Discharge Summary-Hospitalist ---
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 Benavides [facility] mild carotid artery stenosis on ultrasound 1 year ago Kidney stones Irritable bowel syndrome BPH Discharge Diagnosis Chart Review: BP 170/91 Hgb 9.6 CMP normal client partner: EGD and colonoscopy are scheduled for this afternoon. Pt has had two bloody stools Pt received 1 unit of blood total since admit Patient Interview: Pt has been ambulating and confirms having BMs Physical exam stable. Lungs sound perfect. Pt was informed that he will have his scopes done today Pt states that would like to eat but understands that this is not possible until after the scopes are completed. 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 and not a TPA candidate due to active GI bleeding placed on Plavix Anemia due to GI bleeding received 1 unit of packed red blood cell transfusion uncomplicated mild gastritis and no active bleeding on scope per Dr Hare s/p Syncopal episode due to vasovagal syncope with documented bradycardia of 40 on telemetry while in ICU early this morning with increased rectal tone to keep in melanic stools Coronary artery bypass graft previous bypass surgery 2012 by jah [facility] mild carotid artery stenosis on ultrasound 1 year ago Kidney stones Irritable bowel syndrome BPH Plan: Therapy evaluation for new stroke with word finding difficulties Nothing by mouth in preparation for endoscopy Fall risk s/p Vasovagal syncope requiring CODE BLUE evaluation but recovered quickly Transfuse as necessary PPI Possible DC tomorrow if scope findings allow Scribed by Bella Leo under the direct supervision of Dr. Walsh. Reason Hospital Visit/Course CC: CVA w/GIB HPI: This is a 71-year-old white male clinic patient of Dr. CONWAY at [facility] who presented as a direct transfer from [facility] to [facility] due to garbled speech while performing yard work and likely sustained a stroke. He also was passing blood per rectum and had been doing that on and off for the last several weeks but it intensified yesterday to the point that it filled the toilet. He was found to have a presumed TIA versus stroke so he was transferred to higher level care to [facility] and stroke Center at was notified and due to the fact of the unknown exact time of the event he was not a TPA candidate in addition to active GI bleeding. At this current time patient reports that he had a syncopal episode that was documented with bradycardia 40s this morning because he was holding the bloody stool tightly with increased rectal tone because he was afraid he was going to mask the bed but then when he got up fainted. Resuscitation efforts were initiated but none were needed since he did recover quickly. He has received 1 unit of blood thus far and did have a great deal of blood in the toilet this morning. MRI was done as ordered and it did show acute CVA but once again very difficult case considering the active bleeding he is having poses a significant risk for life-threatening bleeding if antiplatelet therapy and or anti-coagulation therapy were initiated. Carotid ultrasound will be repeated since he did have some mild disease noted last year and endoscopy will be performed by Dr. Hare while closely monitoring his hemoglobin and hematocrit. Note from 03/15/17 Palliative Care Review: Pt will have monitor patch. Pt needs Plavix. Patient Interview: Pt was informed he will be on Plavix upon DC. Physical exam was stable. Pt states he has no concerns currently. Plan: Plavix Scribed by Anson Chaudhary under the direct supervision of Dr. Walsh. no fever, vital signs stable, pleasant, improved Regular rate rhythm, clear to auscultation bilaterally No edema Hospital course: Patient had an uneventful hospital course he was placed in the ICU due to acute stroke but he was not a TPA candidate because he was actively bleeding GI source and required 1 unit of packed red blood cell transfusion. Dr. Hare was consulted prepped him for scoped since he was medically stable and found mild gastritis but no source of active bleeding. Confer with cardiology and it was decided the Plavix was a good option for the patient for prevention of additional recurrent stroke and he will have close follow-up with monitoring blood work and monitoring for any recurrent bleeding. Discharge Summary Discharge Physical Examination Allergies: Coded Allergies: Vxvzskr-Pcv-Ckh Reductase Inhibitor (Verified Allergy, Unknown, 01/29/17) cephalexin (Verified Allergy, Unknown, 03/12/17) ciprofloxacin (Verified Allergy, Unknown, 03/12/17) citalopram (Verified Allergy, Unknown, 03/12/17) levofloxacin (Verified Allergy, Unknown, 01/29/17) metoclopramide HCl (Verified Allergy, Unknown, 01/29/17) sulfamethoxazole (Verified Allergy, Unknown, 03/12/17) trazodone (Unverified Allergy, Unknown, 03/13/17) trimethoprim (Verified Allergy, Unknown, 03/12/17) Vitals & I&Os Vital Signs Date Time Temp Pulse Resp B/P (MAP) Pulse Ox O2 Delivery O2 Flow Rate FiO2 03/15/17 11:56 80 24 120/77 94 03/15/17 10:00 Room Air 03/15/17 08:10 97.6 03/13/17 07:02 100.00 Hospital Course Labs (last 24 hrs) Laboratory Tests 03/15/17 04:05: White Blood Count 4.9, Red Blood Count 3.52L, Hemoglobin 8.8L, Hematocrit 28L, Mean Corpuscular Volume 79L, Mean Corpuscular Hemoglobin 25, Mean Corpuscular Hemoglobin Concent 32, Red Cell Distribution Width 15.4H, Platelet Count 182, Mean Platelet Volume 12.2H, Neutrophils (%) (Auto) 67, Lymphocytes (%) (Auto) 15 , Monocytes (%) (Auto) 13H, Eosinophils (%) (Auto) 5, Basophils (%) (Auto) 1, Neutrophils # (Auto) 3.3, Lymphocytes # (Auto) 0.8L, Monocytes # (Auto) 0.6, Eosinophils # (Auto) 0.2, Basophils # (Auto) 0.0, Sodium Level 139, Potassium Level 4.0, Chloride Level 109H, Carbon Dioxide Level 22, Anion Gap 8, Blood Urea Nitrogen 12, Creatinine 0.80, Estimat Glomerular Filtration Rate > 60, BUN/ Creatinine Ratio 15, Glucose Level 102, Calcium Level 8.2L, Phosphorus Level 3.2 , Magnesium Level 2.1 Microbiology 03/12/17 MRSA Screen - Final, Complete MRSA not isolated Discharge Home Medications: Active Scripts Active Clopidogrel (Clopidogrel Bisulfate) 75 Mg Tablet 75 Mg PO DAILY Reported Claritin-D 12 Hour Tablet (Loratadine/Pseudoephedrine) 1 Each Tab.er.12h 1 Tab PO DAILY PRN PRN Doxazosin Mesylate 4 Mg Tablet 2 Mg PO HS TAKES 1/2 OF A (4 MG) TABLET / LAST FILLED 05/11/16 #90 Eszopiclone 3 Mg Tablet 3 Mg PO HS Pravastatin Sodium 20 Mg Tablet 20 Mg PO HS Fluticasone Propionate 16 Gm [place].susp 1 [place] NSEACH BID Pantoprazole Sodium 40 Mg Tablet.dr 40 Mg PO DAILY Escitalopram Oxalate 10 Mg Tablet 10 Mg PO DAILY Metformin HCl 1,000 Mg Tablet 1,000 Mg PO BID Enalapril Maleate 10 Mg Tablet 5 Mg PO BID Tylenol (Acetaminophen) 500 Mg Tablet 1,000 Mg PO BID PRN TAKES 2 (500MG) TABLETS TWICE DAILY NEEDED FOR PAIN Colace (Docusate Sodium) 100 Mg Capsule 100 Mg PO QID PRN NEEDED FOR CONSTIPATION [place] Nasal [place] (Sodium Chloride) 45 Ml Btl 2 [place] NSEACH QID PRN NEEDED FOR DRYNESS [place] Aspirin (Aspirin) 81 Mg Tablet.dr 81 Mg PO HS Melatonin 5 Mg Tablet (Melatonin/Pyridoxine Hcl (B6)) 1 Each Tablet 10 Mg PO HS TAKES 2 (5 MG) TABLETS Instructions to patient/family Please see electonic discharge instructions given to patient. Clinical Quality Measures DVT/VTE Risk/Contraindication: Risk Factor Score Per Nursin RFS Level Per Nursing on Admit: 2=Moderate Stroke: Date of last known well: March 12, 2017 MIKI WALSH DO March 15, 2017 12:06
== END 2017-03-15 11:10 | disposition home or self-care (01) | DRG 377 ==
LOC: EDUNIT# 16:58 → ER 16:59 → ICU 17:27
PROVIDERS: ADMIT Internal Medicine; ATTEND Internal Medicine
PROC: 0DB78ZX Excision of Stomach, Pylorus, Via Natural or Artificial Opening Endoscopic, Diagnostic (ICD-10-PCS; principal; 2017-03-14 14:40)
PROC: 0DJD8ZZ Inspection of Lower Intestinal Tract, Via Natural or Artificial Opening Endoscopic (ICD-10-PCS; 2017-03-14 14:40)
DX: K57.31 Diverticulosis of large intestine without perforation or abscess with bleeding (principal); I63.9 Cerebral infarction, unspecified; R47.1 Dysarthria and anarthria; D50.0 Iron deficiency anemia secondary to blood loss (chronic); I95.9 Hypotension, unspecified; R00.1 Bradycardia, unspecified; K29.70 Gastritis, unspecified, without bleeding; K29.80 Duodenitis without bleeding; R55 Syncope and collapse; I25.10 Atherosclerotic heart disease of native coronary artery without angina pectoris; I10 Essential (primary) hypertension; E11.43 Type 2 diabetes mellitus with diabetic autonomic (poly)neuropathy; G47.30 Sleep apnea, unspecified; K58.9 Irritable bowel syndrome, unspecified; J45.909 Unspecified asthma, uncomplicated; F32.9 Major depressive disorder, single episode, unspecified; N41.1 Chronic prostatitis; K21.9 Gastro-esophageal reflux disease without esophagitis; G25.81 Restless legs syndrome; E78.5 Hyperlipidemia, unspecified; Z95.1 Presence of aortocoronary bypass graft; Z95.5 Presence of coronary angioplasty implant and graft
CPT/HCPCS: 36415; 70551; 80048; 80053; 82040; 82962; 83605; 83735; 84100; 84132; 84484; 85014; 85018; 85025; 85379; 85610; 85730; 86850; 86900; 86901; 86920; 87081; 93005; 93880

== ENCOUNTER 2017-03-28 15:24 | Inpatient (IN) | payer MEDICARE, OTHER ==
[~2017-03-28] VITALS: Ht 172.7 cm; Wt 70.8 kg
[~2017-03-28 15:24] MED LIST changes: +CLOP75TA28 PO; +DOXA4TAB2 PO; +ESCI10TA55 PO; +ESZO3TAB38 PO; +FLUT16SP22 NS; +LORA1TAB59 PO; +METF1000 PO; +PANT40TA3 PO; +PRAV20TA3 PO
[2017-03-28 16:30] VITALS: BP 136/77
[2017-03-28 16:45] VITALS: BP 129/81
[2017-03-28 17:00] VITALS: BP 133/85
--- NOTE | 2017-03-28 17:04 | Consultation-Cardiology ---
HPI-Cardiology Cardiology Consultation: Date of Consultation 03/28/17 Date of Admission Attending Physician Brianne Walsh DO Admitting Physician Umair Dent DO Consulting Physician APRIL BLUE MD, FACP, FACC, FSCAI, CCDS HPI: Chief Complaint: Syncope 71 yo man with a brief syncopal episode while standing at the kitchen counter and slicing ham, caught him, sustained some superficial becerra to the R hand when he hit it against the stove on his way down. Came around quickly but was confused and dazed and weak for a while afterwards. Has been having intermittent RLQ pain for a couple of months. Had had it this am, as well, but only mild at the time of syncope Denies cp or palp or shortness of breath or ankle swelling Denies recent fever or chills Review of Systems-Cardiology Review of Systems Constitutional: No weight loss, No weight gain Eyes: No vision change Ears/Nose/Throat: No ear discharge, No nasal drainage, No recent hearing loss Respiratory: As described under HPI Gastrointestinal: As described under HPI Genitourinary: No dysuria, No hematuria, No urine frequency changes Skin: No rash, No ulcerations Psychiatric/Neurological: other (recent stroke resulting in speech impairment that continues to improve), No focal weakness, No syncope Hematologic: bleeding abnormalities (recent GI bleed that has been worked up and followed by Dr Hare ) GSC-Hvgrmd-Yuwgop Hx Immunizations Up To Date Date of Pneumonia Vaccine: May 01, 2013 Date of Influenza Vaccine: Aug 04, 2012 Past Medical History PMH As described under Assessment. Family Medical History Family Medical History: He reports his father had CHF. No reported h/o premature CAD or SCD. Family History: FH: congestive heart failure 19 FATHER, , Age:86 FH: leukemia 19 MOTHER, , Age:92 FH: uterine cancer 19 MOTHER, , Age:92 Allergies and Home Medications Allergies Coded Allergies: Msiwqnn-Ddd-Buo Reductase Inhibitor (Verified Allergy, Unknown, 01/29/17) cephalexin (Verified Allergy, Unknown, 03/12/17) ciprofloxacin (Verified Allergy, Unknown, 03/12/17) citalopram (Verified Allergy, Unknown, 03/12/17) levofloxacin (Verified Allergy, Unknown, 01/29/17) metoclopramide HCl (Verified Allergy, Unknown, 01/29/17) sulfamethoxazole (Verified Allergy, Unknown, 03/12/17) trazodone (Unverified Allergy, Unknown, 03/13/17) trimethoprim (Verified Allergy, Unknown, 03/12/17) Home Medications Acetaminophen 500 Mg Tablet, 1,000 MG PO BID PRN, (Reported) TAKES 2 (500MG) TABLETS TWICE DAILY NEEDED FOR PAIN Aspirin 81 Mg Tablet.dr, 81 MG PO HS, (Reported) Clopidogrel Bisulfate 75 Mg Tablet, 75 MG PO DAILY, #30 Prescribed by: BRIANNE WALSH on 03/15/17 1050 Docusate Sodium 100 Mg Capsule, 100 MG PO QID PRN, (Reported) NEEDED FOR CONSTIPATION Doxazosin Mesylate 4 Mg Tablet, 2 MG PO HS, (Reported) TAKES 1/2 OF A (4 MG) TABLET / LAST FILLED 05/11/16 #90 Enalapril Maleate 10 Mg Tablet, 5 MG PO BID, (Reported) Escitalopram Oxalate 10 Mg Tablet, 10 MG PO DAILY, (Reported) Eszopiclone 3 Mg Tablet, 3 MG PO HS, (Reported) Fluticasone Propionate 16 Gm [place].susp, 1 [place] NSEACH BID, (Reported) Loratadine/Pseudoephedrine 1 Each Tab.er.12h, 1 TAB PO DAILY PRN PRN for ALLERGIES, (Reported) Melatonin/Pyridoxine Hcl (B6) 1 Each Tablet, 10 MG PO HS, (Reported) TAKES 2 (5 MG) TABLETS Metformin HCl 1,000 Mg Tablet, 1,000 MG PO BID, (Reported) Pantoprazole Sodium 40 Mg Tablet.dr, 40 MG PO DAILY, (Reported) Pravastatin Sodium 20 Mg Tablet, 20 MG PO HS, (Reported) Sodium Chloride 45 Ml Btl, 2 [place] NSEACH QID PRN, (Reported) NEEDED FOR DRYNESS Physical Exam-Cardiology Physical Exam Vital Signs/I&O Vital Sign - Last 12Hours 03/28/17 16:50 Pulse Ox 99 Capillary Refill : Constitutional: AAO x 3, well-developed, well-nourished HEENT: EOMI, hearing is well preserved, No xanthelasmas are seen Neck: No carotid bruit, carotid pulses are 2 + bilaterally, with good upstrokes Respiratory: No accessory muscle use, lungs clear to percussion, lungs clear to auscultation Cardiovascular: regular rate-rhythm, S1 and S2, systolic murmur (faint ANNAMARIA ) Gastrointestinal: No tender, soft, No guarding, No rebound, audible bowel sounds Extremities: No clubbing, No cyanosis, No significant edema Neurologic/Psychiatric: oriented x 3, grossly intact, power is 5/5 both on sides Skin: No rash on exposed areas, No ulcerations on exposed areas, other (R hand under dressing) Data Review Labs Blood work at the [facility] on 03/28/17: Na 141, K 4.8, Cr 1.05, AST/ALT / , H/H 9/29.3, Plt 220k A/P-Cardiology Assessment/Admission Diagnosis Syncope of undetermined etiology. 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 MRI of 03/13/17 - a 2 cm area of acute infarction in the left periventricular white matter just above the level of the basal ganglia. Management is by the Medical Service Continuing lower abdominal pain Anemia due to recent GI bleed, managed by Dr Hare: endoscopy of 03/14/[address] Hare: Slight duodenitis, severe diverticulosis of the sigmoid and descending colon Hypertension Prostate enlargement and urinary problems for which he needs therapy with doxazosin Coronary artery disease with a history of coronary artery bypass surgery, consisting of left internal mammary artery graft to the left anterior descending , saphenous vein to the diagonal, and saphenous vein to the obtuse marginal on by Dr. Benavides at [facility]. MPI of 01/29/17 did not show any ischemia or infarction and LVEF was 63% Normal global left ventricular systolic function. Left ventricular ejection fraction was 60% on cardiac catheterization prior to coronary artery bypass surgery. 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 Chronic prostatitis, he follows with Dr. Rockwell Irritable bowel syndrome Depression which he is following with Dr. Paoni Sleep apnea which he has had surgical treatment in 2000 associated with RLS and follows with Dr. Sanchez Non-specific bilat leg discomfort, now resolved. No evidence of any significant obstructive PAD on ANDREY of 05/18/15 Carotid u/s of 03/13/17 at [facility] [place], operated by [facility]: Estimated underlying stenosis is in the range of 0-40% bilaterally. Discussion and Recomendations * Complex diagnostic and management issue * Keep on tele * Send in the Zio patch for interrogation tomorrow (will complete 2 weeks of patch tomorrow) * Keep well hydrated * Management of anemia and stroke and possible seizure is with the Medical Service (Dr Walsh) * Continue Plavix if no acute bleeding issues and if allowed by Dr Walsh * Monitor labs APRIL BLUE MD FACP FAC CCDS March 28, 2017 17:04
[2017-03-28] MEDS ORDERED: ACETAMINOPHEN 325 MG TABLET/CAPLET (TYLENOL) PO PRN (17:30)
[2017-03-28 17:40] LABS: BASOPHILS % (AUTO) 0 % (0-10); EOSINOPHILS # (AUTO) 0.1 10^3/uL (0.0-0.3); EOSINOPHILS % (AUTO) 1 % (0-10); LYMPHOCYTES # (AUTO) 0.8 X 10^3 (1.0-4.0); LYMPHOCYTES % (AUTO) 8 % (12-44); MEAN CORPUSCULAR HEMOGLOBIN 25 PG (25-34); MEAN CORPUSCULAR HGB CONC 32 G/DL (32-36); MEAN CORPUSCULAR VOLUME 79 FL (80-99); MEAN PLATELET VOLUME 12.2 FL (7.4-10.4); MONOCYTES # (AUTO) 0.5 X 10^3 (0.0-1.0); MONOCYTES % (AUTO) 5 % (0-12); NEUTROPHILS # (AUTO) 8.8 X 10^3 (1.8-7.8); NEUTROPHILS % (AUTO) 86 % (42-75); PLATELET COUNT 225 10^3/uL (130-400); RED CELL DISTRIBUTION WIDTH 15.5 % (10.0-14.5); WHITE BLOOD COUNT 10.2 10^3/uL (4.3-11.0)
[2017-03-28 17:45] VITALS: BP 132/81
[2017-03-28 18:02] LABS: BAND NEUTROPHILS 0 %; BASOPHILS % (MANUAL) 1 %; EOSINOPHILS % (MANUAL) 0 %; LYMPHOCYTES % (MANUAL) 11 %; MICROCYTOSIS SLIGHT; NEUTROPHILS % (MANUAL) 86 %; POIKILOCYTOSIS SLIGHT; SPHEROCYTES SLIGHT
[2017-03-28 18:05] LABS: ALANINE AMINOTRANSFERASE 12 U/L (0-55); ALBUMIN 4.1 G/DL (3.2-4.5); ANION GAP 10 MMOL/L (5-14); ASPARTATE AMINO TRANSFERASE 16 U/L (5-34); BILIRUBIN,TOTAL 0.3 MG/DL (0.1-1.0); BLOOD UREA NITROGEN 18 MG/DL (7-18); BUN/CREATININE RATIO 19; CALCIUM 9.1 MG/DL (8.5-10.1); CARBON DIOXIDE 22 MMOL/L (21-32); CHLORIDE 106 MMOL/L (98-107); CREATININE SERUM 0.94 MG/DL (0.60-1.30); GFR ESTIMATED > 60; GLUCOSE 131 MG/DL (70-105); POTASSIUM 4.4 MMOL/L (3.6-5.0); SODIUM 138 MMOL/L (135-145); TOTAL PROTEIN 6.6 G/DL (6.4-8.2)
[2017-03-28] MEDS: NS IV 1000 ML 1,000 ML IV SCH (18:07)
[2017-03-29] VITALS (11 sets, daily range): BP systolic 110–159; BP diastolic 68–92
[2017-03-29] MEDS: NS IV 1000 ML 1,000 ML IV SCH ×3 (03:49→23:30)
[2017-03-29 04:24] LABS: BASOPHILS % (AUTO) 1 % (0-10); EOSINOPHILS # (AUTO) 0.2 10^3/uL (0.0-0.3); EOSINOPHILS % (AUTO) 4 % (0-10); LYMPHOCYTES # (AUTO) 1.2 X 10^3 (1.0-4.0); LYMPHOCYTES % (AUTO) 20 % (12-44); MEAN CORPUSCULAR HEMOGLOBIN 24 PG (25-34); MEAN CORPUSCULAR HGB CONC 31 G/DL (32-36); MEAN CORPUSCULAR VOLUME 79 FL (80-99); MEAN PLATELET VOLUME 12.4 FL (7.4-10.4); MONOCYTES # (AUTO) 0.7 X 10^3 (0.0-1.0); MONOCYTES % (AUTO) 12 % (0-12); NEUTROPHILS # (AUTO) 3.8 X 10^3 (1.8-7.8); NEUTROPHILS % (AUTO) 64 % (42-75); PLATELET COUNT 217 10^3/uL (130-400); RED BLOOD COUNT 3.42 10^6/uL (4.35-5.85); RED CELL DISTRIBUTION WIDTH 15.3 % (10.0-14.5)
[2017-03-29 04:45] LABS: ALANINE AMINOTRANSFERASE 10 U/L (0-55); ALBUMIN 3.5 G/DL (3.2-4.5); ANION GAP 10 MMOL/L (5-14); ASPARTATE AMINO TRANSFERASE 13 U/L (5-34); BILIRUBIN,TOTAL 0.4 MG/DL (0.1-1.0); BLOOD UREA NITROGEN 17 MG/DL (7-18); BUN/CREATININE RATIO 20; CALCIUM 8.7 MG/DL (8.5-10.1); CARBON DIOXIDE 22 MMOL/L (21-32); CHLORIDE 105 MMOL/L (98-107); CREATININE SERUM 0.85 MG/DL (0.60-1.30); GFR ESTIMATED > 60; GLUCOSE 102 MG/DL (70-105); POTASSIUM 4.3 MMOL/L (3.6-5.0); SODIUM 137 MMOL/L (135-145); TOTAL PROTEIN 5.8 G/DL (6.4-8.2)
--- NOTE | 2017-03-29 08:53 | Consultation ---
History of Present Illness History of Present Illness Patient Consulted On(geoffrey/time) 03/29/17 08:48 Date of Admission History of Present Illness This is a 71 yo man who had a brief syncopal episode while standing at the kitchen counter and cooking sliced ham for a sandwich. When he fell, he fell on the burner and his was able to pull him off. He sustained some superficial becerra to the Right hand when he hit it against the stove on his way down. He came around rather quickly but was confused and dazed and weak for a while afterwards. He reports he has been having intermittent RLQ pain for a couple of months. He was in the hospital a few weeks ago and underwent EGD and colonoscopy. He also reports that he was placed on IRON therapy by PCP. Allergies and Home Medications Allergies Coded Allergies: Kldmhrm-Ouu-Gdo Reductase Inhibitor (Verified Allergy, Unknown, 01/29/17) cephalexin (Verified Allergy, Unknown, 03/12/17) ciprofloxacin (Verified Allergy, Unknown, 03/12/17) citalopram (Verified Allergy, Unknown, 03/12/17) levofloxacin (Verified Allergy, Unknown, 01/29/17) metoclopramide HCl (Verified Allergy, Unknown, 01/29/17) sulfamethoxazole (Verified Allergy, Unknown, 03/12/17) trazodone (Unverified Allergy, Unknown, 03/13/17) trimethoprim (Verified Allergy, Unknown, 03/12/17) Home Medications Acetaminophen 500 Mg Tablet, 1,000 MG PO BID PRN for PAIN-MILD, (Reported) TAKES 2 (500MG) TABLETS Clopidogrel Bisulfate 75 Mg Tablet, 75 MG PO DAILY, (Reported) Docusate Sodium 100 Mg Capsule, 200-300 MG PO TID PRN for CONSTIPATION-1ST LINE, (Reported) Doxazosin Mesylate 4 Mg Tablet, 2 MG PO HS, (Reported) TAKES 1/2 OF A (4 MG) TABLET / LAST FILLED 05/11/16 #90 Enalapril Maleate 10 Mg Tablet, 5 MG PO BID, (Reported) TAKES 1/2 (10MG) TABLET Escitalopram Oxalate 10 Mg Tablet, 10 MG PO DAILY, (Reported) Eszopiclone 3 Mg Tablet, 3 MG PO HS, (Reported) Fluticasone Propionate 16 Gm [place].susp, 2 SPRAY NS BID PRN for CONGESTION, ( Reported) Iron Polysaccharide Complex 150 Mg Capsule, 150 MG PO BID, (Reported) Loratadine/Pseudoephedrine 1 Each Tab.er.12h, 1 TAB PO DAILY PRN for ALLERGIES, (Reported) Melatonin/Lemon [place] Extr 1 Each Tablet, 10 MG PO HS, (Reported) Metformin HCl 1,000 Mg Tablet, 500 MG PO BID, (Reported) TAKES 1/2 (1000MG) TABLET Naphazoline HCl/Glycerin 15 Ml Drops, 1-2 DROPS OU TID PRN for DRY EYES, ( Reported) Pantoprazole Sodium 40 Mg Tablet.dr, 40 MG PO DAILY, (Reported) Pravastatin Sodium 20 Mg Tablet, 20 MG PO HS, (Reported) Sodium Chloride 50 Ml Drops, 2 SPRAYS NS TID PRN for DRY NOSE, (Reported) Sodium Chloride/Aloe Vera 14.1 Gm Gel..gram., TP TID PRN for DRY NOSE, (Reported ) [Garamycin/Decadron] , 2 SPRAYS NS BID PRN for CONGESTION/INFLAMMATION, ( Reported) RECEIVES FROM DR. PURCELL'S OFFICE Past Sdzhpmo-Iphute-Cgwzgo Hx Patient Social History Alcohol Use: Denies Use Recreational Drug Use: No Smoking Status: Never a Smoker Recent Foreign Travel: No Contact w/Someone Who Travel: No Recent Infectious Disease Expo: No Recent Hopitalizations: Yes (2 WEEKS AGO FOR STROKE SYMPTOMS) Physical Abuse Screen: No Sexual Abuse: No Immunizations Up To Date PED Vaccines UTD: No Date of Pneumonia Vaccine: May 01, 2013 Date of Influenza Vaccine: Aug 04, 2012 Seasonal Allergies Seasonal Allergies: Yes (had shots for 5 years) Surgeries HX Surgeries: Yes (TURP,SLEEP APNEA,SINUS SURGERY-INVERTED PAPALOMA, COLONOSCOPY) Surgeries: CABG, Orthopedic Respiratory Hx Respiratory Disorders: Yes Respiratory Disorders: Sleep Apnea Cardiovascular Hx Cardiac Disorders: Yes (CABG,STENTS) Cardiac Disorders: Coronary Artery Disease, Hypertension Neurological Hx Neurological Disorders: No Reproductive System Hx Reproductive Disorders: No Genitourinary Hx Genitourinary Disorders: Yes Genitourinary Disorders: Kidney Stones Gastrointestinal Hx Gastrointestinal Disorders: Yes (gastroperesis, ) Gastrointestinal Disorders: Irritable Bowel Musculoskeletal Hx Musculoskeletal Disorders: No Endocrine Hx Endocrine Disorders: Yes HEENT HX ENT Disorders: No Cancer Hx Cancer: No Psychosocial Hx Psychiatric Problems: No Integumentary HX Skin/Integumentary Disorder: No Blood Transfusions Hx Blood Disorders: No Adverse Reaction to a Blood Tr: No Family Medical History Significant Family History: No Pertinent Family Hx Family Medial History: FH: congestive heart failure 19 FATHER, , Age:86 FH: leukemia 19 MOTHER, , Age:92 FH: uterine cancer 19 MOTHER, , Age:92 Review of Systems-General Constitutional: weakness EENTM: no symptoms reported Respiratory: no symptoms reported Cardiovascular: no symptoms reported Gastrointestinal: RLQ Musculoskeletal: no symptoms reported Skin: other (1st deg becerra to the right thenar prominence and superficial to the right neck. ) Physical Exam-General Problems Physical Exam Vital Signs Vital Sign - Last 12Hours 03/28/17 16:30 Temp 97.7 Pulse 68 Resp 17 B/P (MAP) 136/77 Pulse Ox 99 Capillary Refill : General Appearance: WD/WN, no apparent distress HEENT: PERRL/EOMI, normal ENT inspection Neck: non-tender Respiratory: chest non-tender, no respiratory distress, no accessory muscle use Cardiovascular: regular rate, rhythm Gastrointestinal: non tender, soft, no organomegaly Extremities: no pedal edema, no calf tenderness Neurologic/Psychiatric: alert, normal mood/affect, oriented x 3 Skin: other (ist degreee to the right thenar prominence) Data Review Labs Laboratory Tests 03/28/17 17:33: White Blood Count 10.2, Red Blood Count 3.70L, Hemoglobin 9.2L, Hematocrit 29L, Mean Corpuscular Volume 79L, Mean Corpuscular Hemoglobin 25, Mean Corpuscular Hemoglobin Concent 32, Red Cell Distribution Width 15.5H, Platelet Count 225, Mean Platelet Volume 12.2H, Neutrophils (%) (Auto) 86H, Lymphocytes (%) (Auto) 8L, Monocytes (%) (Auto) 5, Eosinophils (%) (Auto) 1, Basophils (%) (Auto) 0, Neutrophils # (Auto) 8.8H, Lymphocytes # (Auto) 0.8L, Monocytes # (Auto) 0.5, Eosinophils # (Auto) 0.1, Basophils # (Auto) 0.0, Neutrophils % (Manual) 86, Lymphocytes % (Manual) 11, Monocytes % (Manual) 2, Eosinophils % (Manual) 0, Basophils % (Manual) 1, Band Neutrophils 0, Poikilocytosis SLIGHT, Microcytosis SLIGHT, Spherocytes SLIGHT, Elliptocytes SLIGHT, Sodium Level 138, Potassium Level 4.4, Chloride Level 106, Carbon Dioxide Level 22, Anion Gap 10, Blood Urea Nitrogen 18, Creatinine 0.94, Estimat Glomerular Filtration Rate > 60, BUN/ Creatinine Ratio 19, Glucose Level 131H, Calcium Level 9.1, Total Bilirubin 0.3 , Aspartate Amino Transf (AST/SGOT) 16, Alanine Aminotransferase (ALT/SGPT) 12, Alkaline Phosphatase 50, Total Protein 6.6, Albumin 4.1 03/29/17 03:37: White Blood Count 6.0, Red Blood Count 3.42L, Hemoglobin 8.3L, Hematocrit 27L, Mean Corpuscular Volume 79L, Mean Corpuscular Hemoglobin 24L, Mean Corpuscular Hemoglobin Concent 31L, Red Cell Distribution Width 15.3H, Platelet Count 217, Mean Platelet Volume 12.4H, Neutrophils (%) (Auto) 64, Lymphocytes (%) (Auto) 20 , Monocytes (%) (Auto) 12, Eosinophils (%) (Auto) 4, Basophils (%) (Auto) 1, Neutrophils # (Auto) 3.8, Lymphocytes # (Auto) 1.2, Monocytes # (Auto) 0.7, Eosinophils # (Auto) 0.2, Basophils # (Auto) 0.0, Sodium Level 137, Potassium Level 4.3, Chloride Level 105, Carbon Dioxide Level 22, Anion Gap 10, Blood Urea Nitrogen 17, Creatinine 0.85, Estimat Glomerular Filtration Rate > 60, BUN/ Creatinine Ratio 20, Glucose Level 102, Calcium Level 8.7, Total Bilirubin 0.4, Aspartate Amino Transf (AST/SGOT) 13, Alanine Aminotransferase (ALT/SGPT) 10, Alkaline Phosphatase 39L, Total Protein 5.8L, Albumin 3.5 Assessment/Plan Assessment/Plan Assessment/Plan Syncope of undetermined etiology Anemia HX of Severe Diverticulosis and mild Duodenitis Intermittent RLQ 1st Deg burn R Hand HX of CVA in March 2017 Will continue to monitor labs. H&H @ noon. Clear liquid diet. Monitor vital signs. continue to dress becerra to Rt hand. Payam- Patient with syncopal episode at home and transferred to [facility]. Patient found to have occult blood in stools. Patient has not noted any bloody bowel movements. He was perviously having bright red stools few weeks ago. Patient had recent egd and colonoscopy noting no active bleeding at that time. His hgb initially was 9.2 which dropped to 8.3 with fluid and last draw was 8.4. Patient notes some right lower quadrant pain that he has on and off, aching pain. Not having pain currently. Patient denies n/v fever sweats chills shortness of breath or chest pain. general no acute distress heart reg lungs nonlabored abdomen soft nontender no guarding or rebounding no palpable masses ext nontender, right hand slight erythema (burn) normal mood affect alert and oriented assessment as above plan follow hgb Plavix/asa or any anticogulation would reassess risk/benefit patient going to be transfused prbc due to cardiac history goal 10 on hgb if continues to drop will consider repeat endoscopy and consider small bowel capsule endoscopy Clinical Quality Measures DVT/VTE Risk/Contraindication: Risk Factor Score Per Nursin RFS Level Per Nursing on Admit: 2=Moderate ARJUN CISNEROS APRN March 29, 2017 08:53 ANN MARIE KUHN DO March 29, 2017 15:41
[2017-03-29] MEDS ORDERED: CLOPIDOGREL 75 MG (PLAVIX) TABLET PO SCH (09:00)
--- NOTE | 2017-03-29 09:21 | Electrophysiology Consultation ---
HPI-Cardiology Cardiology Consultation: Date of Consultation 03/29/17 Date of Admission Attending Physician Brianne Zuleta DO Admitting Physician Umair Dent DO Consulting Physician Demetra VALLEJO MD HPI: Chief Complaint: syncope this is a 71-year-old gentleman who is a patient of Dr. Stevens and Dr. Dent. He is under the care of Dr. Zuleta. Dr. Stevens requested a cardiac EP consult for unexplained syncope. Patient has history of CABG with 3 grafts which was done in [place] 4 years ago. Recent nuclear stress test showed no infarct or ischemia. LVEF is 63 percent. Patient also has a recent history of cryptogenic stroke. 2 week event monitor was on when the patient had the syncopal episode. The patient was standing in his kitchen and was slicing meat when without any prodrome, he fell to the ground. The patient injured himself. He denies having any chest pain, shortness of breath, palpitations afterwards. According to the patient this is his first episode. Previously he has had dizziness episodes but never had syncope or near syncope. Most of those episodes of dizziness were when he was working in his yard during the summer. Review of Systems-Cardiology Review of Systems Constitutional: No As described under HPI, No no symptoms reported, No chills, No fever, No lightheadedness, No malaise, No tiredness, No weight loss, No weight gain, No other Eyes: No As described under HPI, No no symptoms reported, No blindness, No blurred vision, No contact lenses, No drainage, No decreased acuity, No foreign body sensation, No glasses, No inflammation, No pain, No photophobia, No previous injury, No shadows, No tunnel vision, No other, No vision change Ears/Nose/Throat: No As described under HPI, No no symptoms reported, No chronic hearing loss, No epistaxis, No ear discharge, No ear pain, No loose teeth, No mouth pain, No mouth swelling, No nasal drainage, No nose pain, No recent hearing loss, No throat pain, No throat swelling, No ulcerations, No other Respiratory: As described under HPI Cardiovascular: No no symptoms reported, No As described under HPI, No chest pain, No edema, No irregular heart rate, No lightheadedness, No palpitations, syncope, No other Gastrointestinal: As described under HPI Genitourinary: No dysuria, No hematuria, No urine frequency changes Musculoskeletal: No no symptoms reported, No As describe under HPI, No back pain, No gout, No joint pain, No joint swelling, No muscle pain, No muscle stiffness, No neck pain, No other Skin: No rash, No ulcerations Psychiatric/Neurological: other (recent stroke resulting in speech impairment that continues to improve), No focal weakness, No syncope Hematologic: bleeding abnormalities (recent GI bleed that has been worked up and followed by Dr Hare ) TTI-Oqogyq-Oqrynw Hx Patient Social History Alcohol Use: Denies Use Recreational Drug Use: No Smoking Status: Never a Smoker Recent Foreign Travel: No Recent Infectious Disease Expo: No Hospitalization with Isolation: Denies Physical Abuse Screen: No Sexual Abuse: No Immunizations Up To Date Date of Pneumonia Vaccine: May 01, 2013 Date of Influenza Vaccine: Aug 04, 2012 Past Medical History PMH As described under Assessment. Family Medical History Family Medical History: He reports his father had CHF. No reported h/o premature CAD or SCD. Family History: FH: congestive heart failure 19 FATHER, , Age:86 FH: leukemia 19 MOTHER, , Age:92 FH: uterine cancer 19 MOTHER, , Age:92 Allergies and Home Medications Allergies Coded Allergies: Hhkenlb-Yqj-Nzt Reductase Inhibitor (Verified Allergy, Unknown, 01/29/17) cephalexin (Verified Allergy, Unknown, 03/12/17) ciprofloxacin (Verified Allergy, Unknown, 03/12/17) citalopram (Verified Allergy, Unknown, 03/12/17) levofloxacin (Verified Allergy, Unknown, 01/29/17) metoclopramide HCl (Verified Allergy, Unknown, 01/29/17) sulfamethoxazole (Verified Allergy, Unknown, 03/12/17) trazodone (Unverified Allergy, Unknown, 03/13/17) trimethoprim (Verified Allergy, Unknown, 03/12/17) Home Medications Acetaminophen 500 Mg Tablet, 1,000 MG PO BID PRN for PAIN-MILD, (Reported) TAKES 2 (500MG) TABLETS Clopidogrel Bisulfate 75 Mg Tablet, 75 MG PO DAILY, (Reported) Docusate Sodium 100 Mg Capsule, 200-300 MG PO TID PRN for CONSTIPATION-1ST LINE, (Reported) Doxazosin Mesylate 4 Mg Tablet, 2 MG PO HS, (Reported) TAKES 1/2 OF A (4 MG) TABLET / LAST FILLED 05/11/16 #90 Enalapril Maleate 10 Mg Tablet, 5 MG PO BID, (Reported) TAKES 1/2 (10MG) TABLET Escitalopram Oxalate 10 Mg Tablet, 10 MG PO DAILY, (Reported) Eszopiclone 3 Mg Tablet, 3 MG PO HS, (Reported) Fluticasone Propionate 16 Gm [place].susp, 2 SPRAY NS BID PRN for CONGESTION, ( Reported) Iron Polysaccharide Complex 150 Mg Capsule, 150 MG PO BID, (Reported) Loratadine/Pseudoephedrine 1 Each Tab.er.12h, 1 TAB PO DAILY PRN for ALLERGIES, (Reported) Melatonin/Lemon [place] Extr 1 Each Tablet, 10 MG PO HS, (Reported) Metformin HCl 1,000 Mg Tablet, 500 MG PO BID, (Reported) TAKES 1/2 (1000MG) TABLET Naphazoline HCl/Glycerin 15 Ml Drops, 1-2 DROPS OU TID PRN for DRY EYES, ( Reported) Pantoprazole Sodium 40 Mg Tablet.dr, 40 MG PO DAILY, (Reported) Pravastatin Sodium 20 Mg Tablet, 20 MG PO HS, (Reported) Sodium Chloride 50 Ml Drops, 2 SPRAYS NS TID PRN for DRY NOSE, (Reported) Sodium Chloride/Aloe Vera 14.1 Gm Gel..gram., TP TID PRN for DRY NOSE, (Reported ) [Garamycin/Decadron] , 2 SPRAYS NS BID PRN for CONGESTION/INFLAMMATION, ( Reported) RECEIVES FROM DR. PURCELL'S OFFICE Physical Exam-Cardiology Physical Exam Vital Signs/I&O Vital Sign - Last 12Hours 03/29/17 03/29/17 03/29/17 03/29/17 00:00 00:00 01:00 03:53 Temp 98.2 97.4 Pulse 68 65 74 Resp 20 18 B/P (MAP) 132/81 110/68 Pulse Ox 97 100 99 03/29/17 03/29/17 03/29/17 03/29/17 04:00 07:00 07:30 08:29 Temp 97.1 Pulse 65 70 Resp 18 B/P (MAP) 115/70 Pulse Ox 99 100 100 Intake and Output 03/29/17 00:00 Intake Total 360 ml Output Total 350 ml Balance 10 ml Capillary Refill : Constitutional: AAO x 3, well-developed, well-nourished HEENT: EOMI, hearing is well preserved, No xanthelasmas are seen Neck: No carotid bruit, carotid pulses are 2 + bilaterally, with good upstrokes Respiratory: No accessory muscle use, lungs clear to percussion, lungs clear to auscultation Cardiovascular: regular rate-rhythm, S1 and S2, systolic murmur (faint ANNAMARIA ) Gastrointestinal: No tender, soft, No guarding, No rebound, audible bowel sounds Rectal: deferred Extremities: No normal range of motion, No non-tender, No normal inspection, No pedal edema, No calf tenderness, No normal capillary refill, No pelvis stable , No calf tenderness, No inflammation, No pedal edema, No slow capillary refill , No swelling, No other, No abrasion, No clubbing, No cyanosis, No ecchymosis, No laceration, No no lower extremity edema bilateral, No significant edema, No tenderness, No wound Neurologic/Psychiatric: oriented x 3, grossly intact, power is 5/5 both on sides Skin: No normal color, No warm/dry, No cyanosis, No cool, No diaphoresis, No damp, No ecchymosis, No jaundice, No mottled, No pallor, No rash, No tattoos/ piercings, No ulcerations, No rash on exposed areas, No ulcerations on exposed areas, other (R hand under dressing) Data Review Labs Laboratory Tests 03/28/17 17:33: White Blood Count 10.2, Red Blood Count 3.70L, Hemoglobin 9.2L, Hematocrit 29L, Mean Corpuscular Volume 79L, Mean Corpuscular Hemoglobin 25, Mean Corpuscular Hemoglobin Concent 32, Red Cell Distribution Width 15.5H, Platelet Count 225, Mean Platelet Volume 12.2H, Neutrophils (%) (Auto) 86H, Lymphocytes (%) (Auto) 8L, Monocytes (%) (Auto) 5, Eosinophils (%) (Auto) 1, Basophils (%) (Auto) 0, Neutrophils # (Auto) 8.8H, Lymphocytes # (Auto) 0.8L, Monocytes # (Auto) 0.5, Eosinophils # (Auto) 0.1, Basophils # (Auto) 0.0, Neutrophils % (Manual) 86, Lymphocytes % (Manual) 11, Monocytes % (Manual) 2, Eosinophils % (Manual) 0, Basophils % (Manual) 1, Band Neutrophils 0, Poikilocytosis SLIGHT, Microcytosis SLIGHT, Spherocytes SLIGHT, Elliptocytes SLIGHT, Sodium Level 138, Potassium Level 4.4, Chloride Level 106, Carbon Dioxide Level 22, Anion Gap 10, Blood Urea Nitrogen 18, Creatinine 0.94, Estimat Glomerular Filtration Rate > 60, BUN/ Creatinine Ratio 19, Glucose Level 131H, Calcium Level 9.1, Total Bilirubin 0.3 , Aspartate Amino Transf (AST/SGOT) 16, Alanine Aminotransferase (ALT/SGPT) 12, Alkaline Phosphatase 50, Total Protein 6.6, Albumin 4.1 03/29/17 03:37: White Blood Count 6.0, Red Blood Count 3.42L, Hemoglobin 8.3L, Hematocrit 27L, Mean Corpuscular Volume 79L, Mean Corpuscular Hemoglobin 24L, Mean Corpuscular Hemoglobin Concent 31L, Red Cell Distribution Width 15.3H, Platelet Count 217, Mean Platelet Volume 12.4H, Neutrophils (%) (Auto) 64, Lymphocytes (%) (Auto) 20 , Monocytes (%) (Auto) 12, Eosinophils (%) (Auto) 4, Basophils (%) (Auto) 1, Neutrophils # (Auto) 3.8, Lymphocytes # (Auto) 1.2, Monocytes # (Auto) 0.7, Eosinophils # (Auto) 0.2, Basophils # (Auto) 0.0, Sodium Level 137, Potassium Level 4.3, Chloride Level 105, Carbon Dioxide Level 22, Anion Gap 10, Blood Urea Nitrogen 17, Creatinine 0.85, Estimat Glomerular Filtration Rate > 60, BUN/ Creatinine Ratio 20, Glucose Level 102, Calcium Level 8.7, Total Bilirubin 0.4, Aspartate Amino Transf (AST/SGOT) 13, Alanine Aminotransferase (ALT/SGPT) 10, Alkaline Phosphatase 39L, Total Protein 5.8L, Albumin 3.5 ECG Impression ECG Initial ECG Rhythm: Normal Sinus Comment EKG done on 03/28/2017 at 154 p.m. shows sinus bradycardia at 59 BPM. Normal intervals. DE interval is 200 ms. QRS duration is 96 ms. QTc interval is 417 ms. No other abnormalities are noted. A/P-Cardiology Assessment/Admission Diagnosis 1. unexplained syncope. 2. History of coronary artery disease, status post CABG Plan this is 71-year-old gentleman who has history of coronary artery disease. However recent nuclear stress test did not show any infarct or ischemia. He presents with unexplained syncope. EKG is normal. Orthostatics showed blood pressure at lying down 126/79 mmHg, sitting 139/86 mmHg, standing 144/89 mmHg. No change in heart rate. However, the orthostatics may be normal since the patient has received IV hydration overnight. Since the patient had a cryptogenic stroke and was on an event monitor. We have requested an expedited review of the telemetry stored on the event monitor. I'm told that it'll be available on Saturday. Vasovagal syncope is likely. However other arrhythmias cannot be ruled out at this point in time, since the patient also has a history of CABG. If the event monitor is negative; the patient will likely be a candidate for implantable loop recorder. if all the cardiac workup is negative; he also may be a candidate for an EP study to rule out inducible VT/VF in a patient with previous CABG and normal EF. Thank you for your consultation. Please call me if you have any questions. Genie Vallejo MD, RS, CCDS Cardiac Electrophysiology Clinical Quality Measures DVT/VTE Risk/Contraindication: Risk Factor Score Per Nursin RFS Level Per Nursing on Admit: 2=Moderate Demetra VALLEJO MD March 29, 2017 9:21 am
[2017-03-29] MEDS ORDERED: CLOP75TA69 PO (09:24)
[2017-03-29] MEDS ORDERED: IRON150C3 PO (09:24)
[2017-03-29] MEDS ORDERED: [UNRECOGNIZED DRUG - CODE] OU (09:24)
[2017-03-29] MEDS ORDERED: SODI14.12 TP (09:24)
[2017-03-29] MEDS ORDERED: MELA1TAB35 PO (09:24)
[2017-03-29] MEDS ORDERED: SODI50DR NS (09:24)
--- NOTE | 2017-03-29 09:24 | Progress Note-Cardiology ---
Cardiology SOAP Progress Note Subjective: No new symptoms Denies cp or palp or syncope Continues to have intermittent mild abd discomfort Objective: I&O/Vital Signs Vital Sign - Last 12Hours 03/29/17 03/29/17 03/29/17 03/29/17 00:00 00:00 01:00 03:53 Temp 98.2 97.4 Pulse 68 65 74 Resp 20 18 B/P (MAP) 132/81 110/68 Pulse Ox 97 100 99 03/29/17 03/29/17 03/29/17 03/29/17 04:00 07:00 07:30 08:29 Temp 97.1 Pulse 65 70 Resp 18 B/P (MAP) 115/70 Pulse Ox 99 100 100 Intake and Output 03/29/17 00:00 Intake Total 360 ml Output Total 350 ml Balance 10 ml Weight (Pounds): 157 Weight (Ounces): 6.4 Weight (Calculated Kilograms): [id number] Constitutional: AAO x 3, well-developed, well-nourished Respiratory: No accessory muscle use, lungs clear to percussion, lungs clear to auscultation Cardiovascular: regular rate-rhythm, S1 and S2, systolic murmur (faint ANNAMARIA ) Gastrointestional: No tender, soft, No guarding, No rebound, audible bowel sounds Extremities: No clubbing, No cyanosis, No significant edema Neurologic/Psychiatric: oriented x 3, grossly intact, power is 5/5 both on sides Skin: No rash on exposed areas, No ulcerations on exposed areas, other (R hand under dressing) Results/Procedures: Labs Laboratory Tests 03/28/17 17:33: White Blood Count 10.2, Red Blood Count 3.70L, Hemoglobin 9.2L, Hematocrit 29L, Mean Corpuscular Volume 79L, Mean Corpuscular Hemoglobin 25, Mean Corpuscular Hemoglobin Concent 32, Red Cell Distribution Width 15.5H, Platelet Count 225, Mean Platelet Volume 12.2H, Neutrophils (%) (Auto) 86H, Lymphocytes (%) (Auto) 8L, Monocytes (%) (Auto) 5, Eosinophils (%) (Auto) 1, Basophils (%) (Auto) 0, Neutrophils # (Auto) 8.8H, Lymphocytes # (Auto) 0.8L, Monocytes # (Auto) 0.5, Eosinophils # (Auto) 0.1, Basophils # (Auto) 0.0, Neutrophils % (Manual) 86, Lymphocytes % (Manual) 11, Monocytes % (Manual) 2, Eosinophils % (Manual) 0, Basophils % (Manual) 1, Band Neutrophils 0, Poikilocytosis SLIGHT, Microcytosis SLIGHT, Spherocytes SLIGHT, Elliptocytes SLIGHT, Sodium Level 138, Potassium Level 4.4, Chloride Level 106, Carbon Dioxide Level 22, Anion Gap 10, Blood Urea Nitrogen 18, Creatinine 0.94, Estimat Glomerular Filtration Rate > 60, BUN/ Creatinine Ratio 19, Glucose Level 131H, Calcium Level 9.1, Total Bilirubin 0.3 , Aspartate Amino Transf (AST/SGOT) 16, Alanine Aminotransferase (ALT/SGPT) 12, Alkaline Phosphatase 50, Total Protein 6.6, Albumin 4.1 03/29/17 03:37: White Blood Count 6.0, Red Blood Count 3.42L, Hemoglobin 8.3L, Hematocrit 27L, Mean Corpuscular Volume 79L, Mean Corpuscular Hemoglobin 24L, Mean Corpuscular Hemoglobin Concent 31L, Red Cell Distribution Width 15.3H, Platelet Count 217, Mean Platelet Volume 12.4H, Neutrophils (%) (Auto) 64, Lymphocytes (%) (Auto) 20 , Monocytes (%) (Auto) 12, Eosinophils (%) (Auto) 4, Basophils (%) (Auto) 1, Neutrophils # (Auto) 3.8, Lymphocytes # (Auto) 1.2, Monocytes # (Auto) 0.7, Eosinophils # (Auto) 0.2, Basophils # (Auto) 0.0, Sodium Level 137, Potassium Level 4.3, Chloride Level 105, Carbon Dioxide Level 22, Anion Gap 10, Blood Urea Nitrogen 17, Creatinine 0.85, Estimat Glomerular Filtration Rate > 60, BUN/ Creatinine Ratio 20, Glucose Level 102, Calcium Level 8.7, Total Bilirubin 0.4, Aspartate Amino Transf (AST/SGOT) 13, Alanine Aminotransferase (ALT/SGPT) 10, Alkaline Phosphatase 39L, Total Protein 5.8L, Albumin 3.5 A/P: Assessment: Syncope of undetermined etiology. 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 MRI of 03/13/17 - a 2 cm area of acute infarction in the left periventricular white matter just above the level of the basal ganglia. Management is by the Medical Service Continuing lower abdominal pain Anemia worse today. Anemia due to recent GI bleed, managed by Dr Hare: endoscopy of 03/14/[address] Hare: Slight duodenitis, severe diverticulosis of the sigmoid and descending colon Hypertension Prostate enlargement and urinary problems for which he needs therapy with doxazosin Coronary artery disease with a history of coronary artery bypass surgery, consisting of left internal mammary artery graft to the left anterior descending , saphenous vein to the diagonal, and saphenous vein to the obtuse marginal on by Dr. Benavides at [facility]. MPI of 01/29/17 did not show any ischemia or infarction and LVEF was 63% Normal global left ventricular systolic function. Left ventricular ejection fraction was 60% on cardiac catheterization prior to coronary artery bypass surgery. 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 Chronic prostatitis, he follows with Dr. Rockwell Irritable bowel syndrome Depression which he is following with Dr. Dent Sleep apnea which he has had surgical treatment in 2000 associated with RLS and follows with Dr. Sanchez Non-specific bilat leg discomfort, now resolved. No evidence of any significant obstructive PAD on ANDREY of 05/18/15 Carotid u/s of 03/13/17 at [facility]: Estimated underlying stenosis is in the range of 0-40% bilaterally. Plan: * I have spoken with Dr Vallejo of the EP service to eval for syncope (possible pacemaker for cardioinhibitory syncope) * Have communicated with Dr Zuleta regarding bleeding and anemia * From cardiac standpoint, it would be reasonable to hold aspirin/Plavix if active bleeding is an issue * Dr Vallejo covering Card Svce over the weekend APRIL BLUE MD FACP [facility]S March 29, 2017 09:24
[2017-03-29] MEDS ORDERED: GENTAMICIN NS (09:50)
[2017-03-29] MEDS ORDERED: DEXAMETHASONE NS (09:50)
[2017-03-29] MEDS ORDERED: NS IV 500 ML 500 ML IV SCH (11:36)
[2017-03-29] MEDS ORDERED: SOD CHL GEL 0.5 OZ (AYR SALINE NASAL GEL) TUBE TOP PRN (11:45)
[2017-03-29] MEDS ORDERED: ACETAMINOPHEN 500 MG TAB (TYLENOL) PO PRN (11:45)
[2017-03-29] MEDS ORDERED: SODIUM CHLORIDE NS PRN (11:45)
[2017-03-29] MEDS ORDERED: [UNRECOGNIZED DRUG - OTHER] NS PRN (11:45)
[2017-03-29] MEDS ORDERED: DECADRON NS PRN (11:45)
[2017-03-29] MEDS ORDERED: FLUTICASONE NASAL SPRAY (FLONASE) 16 GM BTL NS PRN (11:45)
[2017-03-29] MEDS ORDERED: GARAMYCIN NS PRN (11:45)
[2017-03-29] MEDS ORDERED: DOCUSATE SODIUM 100 MG (COLACE) CAP PO PRN (11:45)
--- NOTE | 2017-03-29 12:01 | History & Physical-Hospitalist ---
HPI History of Present Illness: HPI/Chief Complaint CC: Syncope HPI: This is a 71yoWM known to me from recent hospitalization for syncope from subacute stroke with GI Bleed that was found to be from mild duodenitis after scopes performed by Dr Hare during last hospital stay. Due to active bleeding he was not a candidate for thrombolytics and his symptoms from the subacute acute stroke resolved at time of discharge. He was placed on Plavix after much debate among cardiology and general surgery and it appeared that the benefits outweighed the medical risk of adding that antiplatelet therapy so he was discharged on Plavix seen in close follow-up with primary care provider Dr. Dent was placed on iron therapy since his hemoglobin was 9.5 at discharge. He presented to the emergency room at [facility] yesterday afternoon after syncopal episode sustained a mild first-degree burn on his hand during the fall while in his kitchen and had a workup at [place] showing Hemoccult positive stools and hemoglobin of 9.5. Dr. Stevens Chandan consultation and recommended blood transfusion due to decreased hemoglobin of 8.4 so that was ordered as recommended and event monitor will be shipped overnight to evaluate whether or not the event that caused the syncope requires a pacemaker placement and will be monitored from that standpoint from cardiology. Dr. Hare will see the patient consultation due to the continued Hemoccult positive stools and I have assessed the Plavix to be too high of risk outweighing the benefits of that medication and will continue the rest of his home medications. Source: patient, family, RN/MD Exam Limitations: no limitations Date Seen 03/29/17 Attending Physician Brianne Walsh DO PCP Umair Dent DO Referring Physician Date of Admission March 28, 2017 at 16:25 Home Medications & Allergies Home Medications Reviewed patient Home Medication Reconciliation Form Allergies Allergies Coded Allergies Zmfwtjs-Dcj-Iyx Reductase Inhibitor (Verified Allergy, Unknown, 01/29/17) cephalexin (Verified Allergy, Unknown, 03/12/17) ciprofloxacin (Verified Allergy, Unknown, 03/12/17) citalopram (Verified Allergy, Unknown, 03/12/17) levofloxacin (Verified Allergy, Unknown, 01/29/17) metoclopramide HCl (Verified Allergy, Unknown, 01/29/17) sulfamethoxazole (Verified Allergy, Unknown, 03/12/17) trazodone (Unverified Allergy, Unknown, 03/13/17) trimethoprim (Verified Allergy, Unknown, 03/12/17) Past Hqnswno-Xrhbjf-Rnwnib Hx Patient Social History Marrital Status: Employed/Student: retired Alcohol Use: Denies Use Recreational Drug Use: No Smoking Status: Never a Smoker Physical Abuse Screen: No Sexual Abuse: No Recent Foreign Travel: No Contact w/other who traveled: No Recent Hopitalizations: Yes (2 WEEKS AGO FOR STROKE SYMPTOMS) Recent Infectious Disease Expo: No Immunizations Up To Date Date of Pneumonia Vaccine: May 01, 2013 Date of Influenza Vaccine: Aug 04, 2012 Seasonal Allergies Seasonal Allergies: Yes (had shots for 5 years) Surgeries HX Surgeries: Yes (TURP,SLEEP APNEA,SINUS SURGERY-INVERTED PAPALOMA, COLONOSCOPY) Surgeries: CABG, Orthopedic Respiratory Hx Respiratory Disorders: Yes Respiratory Disorders: Asthma Cardiovascular Hx Cardiovascular Disorders: Yes (CABG,STENTS) Cardiac Disorders: Coronary Artery Disease, Hypertension Neurological Hx Neurological Disorders: No Reproductive System Hx Reproductive Disorders: No Genitourinary Hx Genitourinary Disorders: Yes Genitourinary Disorders: Kidney Stones Gastrointestinal Hx Gastrointestinal Disorders: Yes (gastroperesis, ) Gastrointestinal Disorders: Irritable Bowel Musculoskeletal Hx Musculoskeletal Disorders: No Endocrine Hx Endocrine Disorders: Yes HEENT HX ENT Disorders: No Cancer Hx Cancer: No Psychosocial Hx Psychiatric Problems: No Integumentary HX Skin/Integumentary Disorder: No Blood Transfusions Hx Blood Disorders: No Adverse Reaction to a Blood Tr: No Family Medical History Significant Family History: No Pertinent Family Hx Family Hx: FH: congestive heart failure 19 FATHER, , Age:86 FH: leukemia 19 MOTHER, , Age:92 FH: uterine cancer 19 MOTHER, , Age:92 Review of Systems Constitutional: see HPI, weakness EENTM: no symptoms reported Respiratory: no symptoms reported Cardiovascular: no symptoms reported Gastrointestinal: no symptoms reported Genitourinary: no symptoms reported Musculoskeletal: no symptoms reported Skin: no symptoms reported Psychiatric/Neurological: Other (syncope) Physical Exam Physical Exam Vital Signs Vital Sign - Last 12Hours 03/28/17 16:30 Temp 97.7 Pulse 68 Resp 17 B/P (MAP) 136/77 Pulse Ox 99 Capillary Refill : General Appearance: No Apparent Distress, WD/WN, Chronically ill Eyes: Bilateral Eye Normal Inspection, Bilateral Eye PERRL HEENT: PERRL/EOMI, Normal ENT Inspection, Pharynx Normal Neck: Full Range of Motion, Normal Inspection, Non Tender, Supple, Carotid Bruit Respiratory: Chest Non Tender, Lungs Clear, Normal Breath Sounds, No Accessory Muscle Use, No Respiratory Distress Cardiovascular: Regular Rate, Rhythm, No Edema, No Gallop, No JVD, No Murmur, Normal Peripheral Pulses Gastrointestinal: Normal Bowel Sounds, No Organomegaly, No Pulsatile Mass, Non Tender, Soft Back: Normal Inspection, No CVA Tenderness, No Vertebral Tenderness Extremity: Normal Capillary Refill, Normal Inspection, Normal Range of Motion, Non Tender, No Calf Tenderness, No Pedal Edema Neurologic/Psychiatric: Alert, Oriented x3, No Motor/Sensory Deficits, Normal Mood/Affect Skin: Normal Color, Warm/Dry Lymphatic: No Adenopathy Results Results/Procedures Lab Laboratory Tests 03/28/17 17:33 03/29/17 03:37 03/29/17 11:54 Assessment/Plan Admission Diagnosis Assessment: Syncope possibly due to vasovagal from volume depletion from severe anemia hemoglobin 9.5 now 8.4 giving rise to transfusion of 2 units of packed red blood cells requirement recommended by cardiology Event monitor undergoing evaluation for possible need of pacemaker placement if this was some sort of asystole or other type of cardiac arrhythmia causing the syncopal episode Recent GI bleed with continued Hemoccult-positive stools placing Plavix on hold since risk outweigh benefits Coronary artery disease previous bypass surgery Diabetes mellitus Hypertension Recent stroke with resolution of symptoms Assessment and Plan plan: Transfuse 2 units of packed red blood cells Reconcile all home meds but place Plavix on hold due to risk outweigh benefits due to GI bleeding Appreciate Dr. Hare's consultation Appreciate cardiology input and recommendations Clinical Quality Measures DVT/VTE Risk/Contraindication: Risk Factor Score Per Nursin RFS Level Per Nursing on Admit: 2=Moderate BRIANNE WALSH DO March 29, 2017 12:01
[2017-03-29] MEDS ORDERED: ZOLPIDEM 5 MG (AMBIEN) TAB PO PRN (12:30)
[2017-03-29] MEDS ORDERED: ARTIFICAL TEARS 0.4 ML UNIT DOSE (REFRESH PLUS) OU PRN (12:45)
[2017-03-29] MEDS ORDERED: SALINE NASAL SPRAY (OCEAN) 45 ML BTL PRN (12:45)
[2017-03-29] MEDS ORDERED: metFORMIN 500 MG (GLUCOPHAGE) TAB PO SCH (17:00)
[2017-03-29] MEDS ORDERED: PATIENT MAY USE OWN MEDS, ALL MC SCH (20:00)
[2017-03-29] MEDS: MELATONIN 10 MG TAB PO SCH (20:51)
[2017-03-29] MEDS: ENALAPRIL 10 MG (VASOTEC) TAB PO SCH (20:52)
[2017-03-29] MEDS: doxAzosin 4 MG (CARDURA) TAB PO SCH (20:53)
[2017-03-29] MEDS: ESZOPICLONE 3 MG PO PRN (20:55)
[2017-03-29] MEDS ORDERED: doxAzosin 4 MG (CARDURA) TAB PO SCH (21:00)
[2017-03-29] MEDS ORDERED: ENALAPRIL 10 MG (VASOTEC) TAB PO SCH (21:00)
[2017-03-29] MEDS ORDERED: SIMvastatin 10 MG (ZOCOR) TAB PO SCH (21:00)
[2017-03-29] MEDS ORDERED: NON-FORMULARY MEDICATION 1 EA EA (Melatonin/Lemon Balm Leaf Extr (Melatonin-Lemon Balm Tab PO SCH (21:00)
[2017-03-30 02:00] VITALS: BP 130/63
[2017-03-30 04:42] LABS: BASOPHILS % (AUTO) 1 % (0-10); EOSINOPHILS # (AUTO) 0.3 10^3/uL (0.0-0.3); EOSINOPHILS % (AUTO) 4 % (0-10); LYMPHOCYTES # (AUTO) 1.5 X 10^3 (1.0-4.0); LYMPHOCYTES % (AUTO) 23 % (12-44); MEAN CORPUSCULAR HEMOGLOBIN 25 PG (25-34); MEAN CORPUSCULAR HGB CONC 32 G/DL (32-36); MEAN CORPUSCULAR VOLUME 79 FL (80-99); MEAN PLATELET VOLUME 12.6 FL (7.4-10.4); MONOCYTES # (AUTO) 0.7 X 10^3 (0.0-1.0); MONOCYTES % (AUTO) 11 % (0-12); NEUTROPHILS % (AUTO) 62 % (42-75); PLATELET COUNT 210 10^3/uL (130-400); RED BLOOD COUNT 3.98 10^6/uL (4.35-5.85); RED CELL DISTRIBUTION WIDTH 15.2 % (10.0-14.5); WHITE BLOOD COUNT 6.5 10^3/uL (4.3-11.0)
[2017-03-30 05:18] LABS: ALANINE AMINOTRANSFERASE 11 U/L (0-55); ALBUMIN 3.7 G/DL (3.2-4.5); ANION GAP 10 MMOL/L (5-14); ASPARTATE AMINO TRANSFERASE 13 U/L (5-34); BILIRUBIN,TOTAL 0.6 MG/DL (0.1-1.0); BLOOD UREA NITROGEN 13 MG/DL (7-18); BUN/CREATININE RATIO 16; CALCIUM 8.9 MG/DL (8.5-10.1); CARBON DIOXIDE 21 MMOL/L (21-32); CHLORIDE 107 MMOL/L (98-107); CREATININE SERUM 0.82 MG/DL (0.60-1.30); GFR ESTIMATED > 60; GLUCOSE 92 MG/DL (70-105); POTASSIUM 4.1 MMOL/L (3.6-5.0); SODIUM 138 MMOL/L (135-145); TOTAL PROTEIN 5.9 G/DL (6.4-8.2)
[2017-03-30 06:00] VITALS: BP 126/72
[2017-03-30 07:43] VITALS: BP 134/86
[2017-03-30] MEDS: PANTOPRAZOLE 40 MG (PROTONIX) TAB PO SCH (08:51)
[2017-03-30] MEDS: ESCITALOPRAM 10 MG PO SCH (08:52)
[2017-03-30] MEDS: METFORMIN 1000 MG PO SCH ×2 (08:55→19:41)
[2017-03-30] MEDS: ENALAPRIL 10 MG (VASOTEC) TAB PO SCH ×2 (08:58→19:44)
[2017-03-30] MEDS: NS IV 1000 ML 1,000 ML IV SCH (08:58)
[2017-03-30] MEDS ORDERED: LORATADINE (CLARITIN) 10 MG TAB PO PRN (09:00)
[2017-03-30] MEDS: IRON SUCROSE INJECTION 200 MG in NS (IVPB) 100 ML IV SCH (09:59)
--- NOTE | 2017-03-30 10:02 | Discharge Summary-Hospitalist ---
Diagnosis/Chief Complaint Date of Admission March 28, 2017 at 16:30 Date of Discharge Admission Diagnosis Assessment: Syncope possibly due to vasovagal from volume depletion from severe anemia hemoglobin 9.5 now 8.4 giving rise to transfusion of 2 units of packed red blood cells requirement recommended by cardiology Event monitor undergoing evaluation for possible need of pacemaker placement if this was some sort of asystole or other type of cardiac arrhythmia causing the syncopal episode Recent GI bleed with continued Hemoccult-positive stools placing Plavix on hold since risk outweigh benefits Coronary artery disease previous bypass surgery Diabetes mellitus Hypertension Recent stroke with resolution of symptoms Discharge Diagnosis Assessment: Syncope possibly due to vasovagal from volume depletion from severe anemia hemoglobin 9.5 now 8.4 giving rise to s/p transfusion of 2 units of packed red blood cells requirement recommended by cardiology Event monitor undergoing evaluation for possible need of pacemaker placement if this was some sort of asystole or other type of cardiac arrhythmia causing the syncopal episode will order Holter monitor and await results of the event monitor that will be in on Saturday Recent GI bleed with continued Hemoccult-positive stools placing Plavix on hold since risks outweigh benefits Coronary artery disease previous bypass surgery Diabetes mellitus Hypertension Recent stroke with resolution of symptoms but cannot tolerate anti-platelet therapy due to occult GIB and causing severe anemia resulting in transfusion yesterday of 2 units Reason Hospital Visit/Course CC: Syncope HPI: This is a 71yoWM known to me from recent hospitalization for syncope from subacute stroke with GI Bleed that was found to be from mild duodenitis after scopes performed by Dr Hare during last hospital stay. Due to active bleeding he was not a candidate for thrombolytics and his symptoms from the subacute acute stroke resolved at time of discharge. He was placed on Plavix after much debate among cardiology and general surgery and it appeared that the benefits outweighed the medical risk of adding that antiplatelet therapy so he was discharged on Plavix seen in close follow-up with primary care provider Dr. Dent was placed on iron therapy since his hemoglobin was 9.5 at discharge. He presented to the emergency room at [facility] yesterday afternoon after syncopal episode sustained a mild first-degree burn on his hand during the fall while in his kitchen and had a workup at [place] showing Hemoccult positive stools and hemoglobin of 9.5. Dr. Stevens Chandan consultation and recommended blood transfusion due to decreased hemoglobin of 8.4 so that was ordered as recommended and event monitor will be shipped overnight to evaluate whether or not the event that caused the syncope requires a pacemaker placement and will be monitored from that standpoint from cardiology. Dr. Hare will see the patient consultation due to the continued Hemoccult positive stools and I have assessed the Plavix to be too high of risk outweighing the benefits of that medication and will continue the rest of his home medications. Note from 03/30/17: Patient doing much better and having no other syncopal episodes Had no complications when given 2 units of blood transfusion yesterday and now his hemoglobin doing very well at 10. I have held Plavix due to intolerance to antiplatelets therapy due to occult GI bleeding Patient denies any pain No fever, vital signs stable, pleasant, at bedside Regular rate and rhythm, clear to auscultation bilaterally No edema Hospital course: Patient had an uneventful hospital course he did receive 2 units of packed red blood cells after cardiology recommended that considering his hemoglobin was getting so low giving rise to more evidence of vasovagal syncope but event monitor was removed and sent off for results since that was in place during the syncopal event but those results would not be back until Saturday. I have proposed to cardiology to place Holter monitor prior to discharge today since she was feeling well and to return if he had any other events but this would resolve the syncope if it was vasovagal due to severe anemia and dehydration which is a strong possibility but if this was some sort of cardiac arrhythmia he will need additional loop recorder implantation or a pacemaker. I did give him 1 dose of Venofer iron prior to discharge because his iron level was 12 and he will maintain his oral iron twice daily as instructed by Dr. Dent. Discharge Summary Discharge Physical Examination Allergies: Coded Allergies: Zhojvxr-Sxy-Dfx Reductase Inhibitor (Verified Allergy, Unknown, 01/29/17) cephalexin (Verified Allergy, Unknown, 03/12/17) ciprofloxacin (Verified Allergy, Unknown, 03/12/17) citalopram (Verified Allergy, Unknown, 03/12/17) levofloxacin (Verified Allergy, Unknown, 01/29/17) metoclopramide HCl (Verified Allergy, Unknown, 01/29/17) sulfamethoxazole (Verified Allergy, Unknown, 03/12/17) trazodone (Unverified Allergy, Unknown, 03/13/17) trimethoprim (Verified Allergy, Unknown, 03/12/17) Vitals & I&Os Vital Signs Date Time Temp Pulse Resp B/P (MAP) Pulse Ox O2 Delivery O2 Flow Rate FiO2 03/30/17 07:43 98.6 65 16 134/86 03/30/17 07:39 98 Hospital Course Labs (last 24 hrs) Laboratory Tests 03/29/17 11:54: Hemoglobin 8.4L, Hematocrit 27L 03/30/17 00:36: Hemoglobin 10.1#L, Hematocrit 31L 03/30/17 03:30: Hemoglobin 9.9L, Hematocrit 31L, White Blood Count 6.5, Red Blood Count 3.98L, Mean Corpuscular Volume 79L, Mean Corpuscular Hemoglobin 25, Mean Corpuscular Hemoglobin Concent 32, Red Cell Distribution Width 15.2H, Platelet Count 210, Mean Platelet Volume 12.6H, Neutrophils (%) (Auto) 62, Lymphocytes (%) (Auto) 23 , Monocytes (%) (Auto) 11, Eosinophils (%) (Auto) 4, Basophils (%) (Auto) 1, Neutrophils # (Auto) 4.0, Lymphocytes # (Auto) 1.5, Monocytes # (Auto) 0.7, Eosinophils # (Auto) 0.3, Basophils # (Auto) 0.0, Sodium Level 138, Potassium Level 4.1, Chloride Level 107, Carbon Dioxide Level 21, Anion Gap 10, Blood Urea Nitrogen 13, Creatinine 0.82, Estimat Glomerular Filtration Rate > 60, BUN/ Creatinine Ratio 16, Glucose Level 92, Calcium Level 8.9, Total Bilirubin 0.6, Aspartate Amino Transf (AST/SGOT) 13, Alanine Aminotransferase (ALT/SGPT) 11, Alkaline Phosphatase 46, Total Protein 5.9L, Albumin 3.7 Pending Labs Laboratory Tests 03/30/17 03:30: White Blood Count 6.5, Red Blood Count 3.98, Hemoglobin 9.9, Hematocrit 31, Mean Corpuscular Volume 79, Mean Corpuscular Hemoglobin 25, Mean Corpuscular Hemoglobin Concent 32, Red Cell Distribution Width 15.2, Platelet Count 210, Mean Platelet Volume 12.6, Neutrophils (%) (Auto) 62, Lymphocytes (%) (Auto) 23 , Monocytes (%) (Auto) 11, Eosinophils (%) (Auto) 4, Basophils (%) (Auto) 1, Neutrophils # (Auto) 4.0, Lymphocytes # (Auto) 1.5, Monocytes # (Auto) 0.7, Eosinophils # (Auto) 0.3, Basophils # (Auto) 0.0, Sodium Level 138, Potassium Level 4.1, Chloride Level 107, Carbon Dioxide Level 21, Anion Gap 10, Blood Urea Nitrogen 13, Creatinine 0.82, Estimat Glomerular Filtration Rate > 60, BUN/ Creatinine Ratio 16, Glucose Level 92, Calcium Level 8.9, Total Bilirubin 0.6, Aspartate Amino Transf (AST/SGOT) 13, Alanine Aminotransferase (ALT/SGPT) 11, Alkaline Phosphatase 46, Total Protein 5.9, Albumin 3.7 Discharge Home Medications: Active Scripts Active Reported [Garamycin/Decadron] 2 Sprays NS BID PRN RECEIVES FROM DR. PURCELL'S OFFICE Redness Relief Eye Drops (Naphazoline HCl/Glycerin) 15 Ml Drops 1-2 Drops OU TID PRN Loring Saline Nasal Gel (Sodium Chloride/Aloe Vera) 14.1 Gm Gel..gram. TP TID PRN Plavix (Clopidogrel Bisulfate) 75 Mg Tablet 75 Mg PO DAILY Ferrex 150 (Iron Polysaccharide Complex) 150 Mg Capsule 150 Mg PO BID [place]oring Saline (Sodium Chloride) 50 Ml Drops 2 Sprays NS TID PRN Melatonin-Lemon [place] Tablet (Melatonin/Lemon [place] Extr) 1 Each Tablet 10 Mg PO HS Claritin-D 12 Hour Tablet (Loratadine/Pseudoephedrine) 1 Each Tab.er.12h 1 Tab PO DAILY PRN Doxazosin Mesylate 4 Mg Tablet 2 Mg PO HS TAKES 1/2 OF A (4 MG) TABLET / LAST FILLED 05/11/16 #90 Eszopiclone 3 Mg Tablet 3 Mg PO HS Pravastatin Sodium 20 Mg Tablet 20 Mg PO HS Fluticasone Propionate 16 Gm Vail.susp 2 [place]ail NS BID PRN Pantoprazole Sodium 40 Mg Tablet.dr 40 Mg PO DAILY Escitalopram Oxalate 10 Mg Tablet 10 Mg PO DAILY Metformin HCl 1,000 Mg Tablet 500 Mg PO BID TAKES 1/2 (1000MG) TABLET Enalapril Maleate 10 Mg Tablet 5 Mg PO BID TAKES 1/2 (10MG) TABLET Tylenol (Acetaminophen) 500 Mg Tablet 1,000 Mg PO BID PRN TAKES 2 (500MG) TABLETS Colace (Docusate Sodium) 100 Mg Capsule 200-300 Mg PO TID PRN Instructions to patient/family Please see electonic discharge instructions given to patient. Clinical Quality Measures DVT/VTE Risk/Contraindication: Risk Factor Score Per Nursin RFS Level Per Nursing on Admit: 2=Moderate MIKI WALSH DO March 30, 2017 10:01
[2017-03-30 12:00] VITALS: BP 132/72
--- NOTE | 2017-03-30 12:25 | Cardiology Progress Note ---
Cardiology SOAP Progress Note Subjective: no cardiac complaints Objective: I&O/Vital Signs Vital Sign - Last 12Hours 03/30/17 03/30/17 03/30/17 03/30/17 01:00 02:00 02:00 04:00 Temp 98.2 Pulse 59 57 B/P (MAP) 130/63 Pulse Ox 96 99 03/30/17 03/30/17 03/30/17 03/30/17 06:00 06:00 07:00 07:39 Temp 97.4 Pulse 58 70 B/P (MAP) 126/72 Pulse Ox 97 98 03/30/17 07:43 Temp 98.6 Pulse 65 Resp 16 B/P (MAP) 134/86 Intake and Output 03/30/17 00:00 Intake Total 1970 ml Output Total 1650 ml Balance 320 ml Weight (Pounds): 158 Weight (Ounces): 4.0 Weight (Calculated Kilograms): 71.687894 Constitutional: AAO x 3, well-developed, well-nourished Respiratory: No accessory muscle use, lungs clear to percussion, lungs clear to auscultation Cardiovascular: regular rate-rhythm, S1 and S2, systolic murmur (faint ANNAMARIA ) Gastrointestional: No tender, soft, No guarding, No rebound, audible bowel sounds Extremities: No normal range of motion, No non-tender, No normal inspection, No pedal edema, No calf tenderness, No normal capillary refill, No pelvis stable , No calf tenderness, No inflammation, No pedal edema, No slow capillary refill , No swelling, No other, No abrasion, No clubbing, No cyanosis, No ecchymosis, No laceration, No no lower extremity edema bilateral, No significant edema, No tenderness, No wound Neurologic/Psychiatric: oriented x 3, grossly intact, power is 5/5 both on sides Skin: No normal color, No warm/dry, No cyanosis, No cool, No diaphoresis, No damp, No ecchymosis, No jaundice, No mottled, No pallor, No rash, No tattoos/ piercings, No ulcerations, No rash on exposed areas, No ulcerations on exposed areas, other (R hand under dressing) Results/Procedures: Labs Laboratory Tests 03/30/17 00:36: Hemoglobin 10.1#L, Hematocrit 31L 03/30/17 03:30: Hemoglobin 9.9L, Hematocrit 31L, White Blood Count 6.5, Red Blood Count 3.98L, Mean Corpuscular Volume 79L, Mean Corpuscular Hemoglobin 25, Mean Corpuscular Hemoglobin Concent 32, Red Cell Distribution Width 15.2H, Platelet Count 210, Mean Platelet Volume 12.6H, Neutrophils (%) (Auto) 62, Lymphocytes (%) (Auto) 23 , Monocytes (%) (Auto) 11, Eosinophils (%) (Auto) 4, Basophils (%) (Auto) 1, Neutrophils # (Auto) 4.0, Lymphocytes # (Auto) 1.5, Monocytes # (Auto) 0.7, Eosinophils # (Auto) 0.3, Basophils # (Auto) 0.0, Sodium Level 138, Potassium Level 4.1, Chloride Level 107, Carbon Dioxide Level 21, Anion Gap 10, Blood Urea Nitrogen 13, Creatinine 0.82, Estimat Glomerular Filtration Rate > 60, BUN/ Creatinine Ratio 16, Glucose Level 92, Calcium Level 8.9, Total Bilirubin 0.6, Aspartate Amino Transf (AST/SGOT) 13, Alanine Aminotransferase (ALT/SGPT) 11, Alkaline Phosphatase 46, Total Protein 5.9L, Albumin 3.7 A/P: Assessment/Dx: 1. unexplained syncope. 2. History of coronary artery disease, status post CABG Plan: this is 71-year-old gentleman who has history of coronary artery disease. However recent nuclear stress test did not show any infarct or ischemia. He presents with unexplained syncope. EKG is normal. Orthostatics showed blood pressure at lying down 126/79 mmHg, sitting 139/86 mmHg, standing 144/89 mmHg. No change in heart rate. However, the orthostatics may be normal since the patient has received IV hydration overnight. Since the patient had a cryptogenic stroke and was on an event monitor. We have requested an expedited review of the telemetry stored on the event monitor. I'm told that it'll be available on Saturday. we will start low dose beta kevin. Vasovagal syncope is likely. However other arrhythmias cannot be ruled out at this point in time, since the patient also has a history of CABG. If the event monitor is negative; the patient will likely be a candidate for implantable loop recorder. if all the cardiac workup is negative; he also may be a candidate for an EP study to rule out inducible VT/VF in a patient with previous CABG and normal EF. I have discussed at length with the patient and family and we have mutually decided to stay as an inpatient till we receive the event monitor report on Saturday. Thank you for your consultation. Please call me if you have any questions. Genie Vallejo MD, FACP, FACC, FSCAI, FHRS, CCDS Interventional Cardiology Cardiac Electrophysiology Vascular Medicine and Endovascular Interventions Demetra VALLEJO MD March 30, 2017 12:25 pm
[2017-03-30 16:00] VITALS: BP 137/84
[2017-03-30] MEDS: doxAzosin 4 MG (CARDURA) TAB PO SCH (19:42)
[2017-03-30] MEDS: PRAVASTATIN 20 MG (PRAVACHOL) TAB PO SCH (19:42)
[2017-03-30] MEDS: MELATONIN 10 MG TAB PO SCH (19:44)
[2017-03-30] MEDS: ESZOPICLONE 3 MG PO PRN (19:45)
[2017-03-30] MEDS: meTOprolol TARTRATE 25 MG (LOPRESSOR) TABLET PO SCH (19:45)
[2017-03-30 20:00] VITALS: BP 134/86
[2017-03-31] VITALS: BP 159/89
[2017-03-31 04:00] VITALS: BP 119/65
[2017-03-31 04:27] LABS: BASOPHILS # (AUTO) 0.1 10^3/uL (0.0-0.1); BASOPHILS % (AUTO) 1 % (0-10); EOSINOPHILS # (AUTO) 0.3 10^3/uL (0.0-0.3); EOSINOPHILS % (AUTO) 5 % (0-10); LYMPHOCYTES # (AUTO) 1.4 X 10^3 (1.0-4.0); LYMPHOCYTES % (AUTO) 23 % (12-44); MEAN CORPUSCULAR HEMOGLOBIN 25 PG (25-34); MEAN CORPUSCULAR HGB CONC 32 G/DL (32-36); MEAN CORPUSCULAR VOLUME 79 FL (80-99); MEAN PLATELET VOLUME 12.5 FL (7.4-10.4); MONOCYTES # (AUTO) 0.7 X 10^3 (0.0-1.0); MONOCYTES % (AUTO) 11 % (0-12); NEUTROPHILS # (AUTO) 3.6 X 10^3 (1.8-7.8); NEUTROPHILS % (AUTO) 60 % (42-75); PLATELET COUNT 201 10^3/uL (130-400); RED BLOOD COUNT 4.02 10^6/uL (4.35-5.85); RED CELL DISTRIBUTION WIDTH 15.1 % (10.0-14.5); WHITE BLOOD COUNT 5.9 10^3/uL (4.3-11.0)
[2017-03-31 05:05] LABS: ANION GAP 10 MMOL/L (5-14); BLOOD UREA NITROGEN 11 MG/DL (7-18); BUN/CREATININE RATIO 13; CALCIUM 8.8 MG/DL (8.5-10.1); CARBON DIOXIDE 22 MMOL/L (21-32); CHLORIDE 106 MMOL/L (98-107); CREATININE SERUM 0.84 MG/DL (0.60-1.30); GFR ESTIMATED > 60; GLUCOSE 96 MG/DL (70-105); POTASSIUM 4.1 MMOL/L (3.6-5.0); SODIUM 138 MMOL/L (135-145)
[2017-03-31 07:00] VITALS: BP 131/80
[2017-03-31] MEDS: METFORMIN 1000 MG PO SCH ×2 (08:02→18:41)
[2017-03-31] MEDS: ESCITALOPRAM 10 MG PO SCH (08:03)
[2017-03-31] MEDS: ENALAPRIL 10 MG (VASOTEC) TAB PO SCH ×2 (08:08→20:46)
[2017-03-31] MEDS: PANTOPRAZOLE 40 MG (PROTONIX) TAB PO SCH (08:12)
[2017-03-31] MEDS: meTOprolol TARTRATE 25 MG (LOPRESSOR) TABLET PO SCH ×2 (08:25→20:40)
--- NOTE | 2017-03-31 11:18 | Cardiology Progress Note ---
Cardiology SOAP Progress Note Subjective: No complaints Objective: I&O/Vital Signs Vital Sign - Last 12Hours 03/31/17 03/31/17 03/31/17 03/31/17 01:00 04:00 04:00 07:00 Temp 98.2 Pulse 55 59 54 B/P (MAP) 119/65 Pulse Ox 96 03/31/17 07:00 Pulse 64 Resp 16 B/P (MAP) 131/80 Intake and Output 03/30/17 23:59 Intake Total 1040 ml Output Total 1000 ml Balance 40 ml Weight (Pounds): 159 Weight (Ounces): 1.0 Weight (Calculated Kilograms): 72.582079 Constitutional: AAO x 3, well-developed, well-nourished Respiratory: No accessory muscle use, lungs clear to percussion, lungs clear to auscultation Cardiovascular: regular rate-rhythm, S1 and S2, systolic murmur (faint ANNAMARIA ) Gastrointestional: No tender, soft, No guarding, No rebound, audible bowel sounds Extremities: No normal range of motion, No non-tender, No normal inspection, No pedal edema, No calf tenderness, No normal capillary refill, No pelvis stable , No calf tenderness, No inflammation, No pedal edema, No slow capillary refill , No swelling, No other, No abrasion, No clubbing, No cyanosis, No ecchymosis, No laceration, No no lower extremity edema bilateral, No significant edema, No tenderness, No wound Neurologic/Psychiatric: oriented x 3, grossly intact, power is 5/5 both on sides Skin: No normal color, No warm/dry, No cyanosis, No cool, No diaphoresis, No damp, No ecchymosis, No jaundice, No mottled, No pallor, No rash, No tattoos/ piercings, No ulcerations, No rash on exposed areas, No ulcerations on exposed areas, other (R hand under dressing) Results/Procedures: Labs Laboratory Tests 03/30/17 18:03: Hemoglobin 10.4L, Hematocrit 33L 03/31/17 03:34: Hemoglobin 10.2L, Hematocrit 32L, White Blood Count 5.9, Red Blood Count 4.02L, Mean Corpuscular Volume 79L, Mean Corpuscular Hemoglobin 25, Mean Corpuscular Hemoglobin Concent 32, Red Cell Distribution Width 15.1H, Platelet Count 201, Mean Platelet Volume 12.5H, Neutrophils (%) (Auto) 60, Lymphocytes (%) (Auto) 23 , Monocytes (%) (Auto) 11, Eosinophils (%) (Auto) 5, Basophils (%) (Auto) 1, Neutrophils # (Auto) 3.6, Lymphocytes # (Auto) 1.4, Monocytes # (Auto) 0.7, Eosinophils # (Auto) 0.3, Basophils # (Auto) 0.1, Sodium Level 138, Potassium Level 4.1, Chloride Level 106, Carbon Dioxide Level 22, Anion Gap 10, Blood Urea Nitrogen 11, Creatinine 0.84, Estimat Glomerular Filtration Rate > 60, BUN/ Creatinine Ratio 13, Glucose Level 96, Calcium Level 8.8 A/P: Assessment/Dx: 1. unexplained syncope. 2. History of coronary artery disease, status post CABG Plan: this is 71-year-old gentleman who has history of coronary artery disease. However recent nuclear stress test did not show any infarct or ischemia. He presents with unexplained syncope. EKG is normal. Orthostatics showed blood pressure at lying down 126/79 mmHg, sitting 139/86 mmHg, standing 144/89 mmHg. No change in heart rate. Since the patient had a cryptogenic stroke and was on an event monitor. We have requested an expedited review of the telemetry stored on the event monitor. I'm told that it'll be available on Saturday. we will start low dose beta keivn. Vasovagal syncope is likely. However other arrhythmias cannot be ruled out at this point in time, since the patient also has a history of CABG. If the event monitor is negative; the patient will likely be a candidate for implantable loop recorder. if all the cardiac workup is negative; he also may be a candidate for an EP study to rule out inducible VT/VF in a patient with previous CABG and normal EF. Thank you for your consultation. Please call me if you have any questions. Genie Vallejo MD, FACP, FACC, FSCAI, FHRS, CCDS Interventional Cardiology Cardiac Electrophysiology Vascular Medicine and Endovascular Interventions Demetra VALLEJO MD March 31, 2017 11:18 am
--- NOTE | 2017-03-31 11:18 | Progress Note-Hospitalist ---
Progress Note HPI/CC on Admission CC: Syncope HPI: This is a 71yoWM known to me from recent hospitalization for syncope from subacute stroke with GI Bleed that was found to be from mild duodenitis after scopes performed by Dr Hare during last hospital stay. Due to active bleeding he was not a candidate for thrombolytics and his symptoms from the subacute acute stroke resolved at time of discharge. He was placed on Plavix after much debate among cardiology and general surgery and it appeared that the benefits outweighed the medical risk of adding that antiplatelet therapy so he was discharged on Plavix seen in close follow-up with primary care provider Dr. Dent was placed on iron therapy since his hemoglobin was 9.5 at discharge. He presented to the emergency room at [facility] yesterday afternoon after syncopal episode sustained a mild first-degree burn on his hand during the fall while in his kitchen and had a workup at [place] showing Hemoccult positive stools and hemoglobin of 9.5. Dr. Stevens Chandan consultation and recommended blood transfusion due to decreased hemoglobin of 8.4 so that was ordered as recommended and event monitor will be shipped overnight to evaluate whether or not the event that caused the syncope requires a pacemaker placement and will be monitored from that standpoint from cardiology. Dr. Hare will see the patient consultation due to the continued Hemoccult positive stools and I have assessed the Plavix to be too high of risk outweighing the benefits of that medication and will continue the rest of his home medications. Note from 03/30/17: Patient doing much better and having no other syncopal episodes Had no complications when given 2 units of blood transfusion yesterday and now his hemoglobin doing very well at 10. I have held Plavix due to intolerance to antiplatelets therapy due to occult GI bleeding Patient denies any pain No fever, vital signs stable, pleasant, at bedside Regular rate and rhythm, clear to auscultation bilaterally No edema Hospital course: Patient had an uneventful hospital course he did receive 2 units of packed red blood cells after cardiology recommended that considering his hemoglobin was getting so low giving rise to more evidence of vasovagal syncope but event monitor was removed and sent off for results since that was in place during the syncopal event but those results would not be back until Saturday. I have proposed to cardiology to place Holter monitor prior to discharge today since she was feeling well and to return if he had any other events but this would resolve the syncope if it was vasovagal due to severe anemia and dehydration which is a strong possibility but if this was some sort of cardiac arrhythmia he will need additional loop recorder implantation or a pacemaker. I did give him 1 dose of Venofer iron prior to discharge because his iron level was 12 and he will maintain his oral iron twice daily as instructed by Dr. Dent. Progress Notes/Assess & Plan Date Seen 03/31/17 Admission Dx/Process Assessment: Syncope possibly due to vasovagal from volume depletion from severe anemia hemoglobin 9.5 now 8.4 giving rise to transfusion of 2 units of packed red blood cells requirement recommended by cardiology Event monitor undergoing evaluation for possible need of pacemaker placement if this was some sort of asystole or other type of cardiac arrhythmia causing the syncopal episode Recent GI bleed with continued Hemoccult-positive stools placing Plavix on hold since risk outweigh benefits Coronary artery disease previous bypass surgery Diabetes mellitus Hypertension Recent stroke with resolution of symptoms Diagonsis/Assessment & Plan Patient doing well overall and agreed to stay until event monitor was assessed that was overnighted in case this is some sort of fatal cardiac arrhythmia or asystole causing the syncopal episodes since he does have so many vascular problems with previous bypass surgery Feels good since 2 units of blood were given and now hemoglobin is 10.2 Denies any bloody stools Off Plavix since bleeding risk outweighed the benefits for stroke prevention secondary type and patient are pleased with the workup thus far No fever, vital signs stable, pleasant, improved Regular rate and rhythm, clear to auscultation bilaterally No edema Laboratory Tests 03/30/17 18:03 03/31/17 03:34 Assessment: Syncope possibly due to vasovagal from volume depletion from severe anemia hemoglobin 9.5 on admit then decreased to 8.4 giving rise to s/p transfusion of 2 units of packed red blood cells requirement recommended by cardiology now 10.2 Event monitor undergoing evaluation for possible need of pacemaker placement if this was some sort of asystole or other type of cardiac arrhythmia causing the syncopal episodes x 2 Recent GI bleed with continued Hemoccult-positive stools placing Plavix on hold since risks outweigh benefits Coronary artery disease previous bypass surgery Diabetes mellitus Hypertension Recent stroke with resolution of symptoms but cannot tolerate anti-platelet therapy due to occult GIB and causing severe anemia resulting in transfusion yesterday of 2 units Plan: Monitor closely Telemetry Document if syncopal episode occurs to capture cardiac arrhythmia failed type or asystole if that is the case and documented will meet criteria for pacemaker Monitor hemoglobin MIKI WALSH DO March 31, 2017 11:18
[2017-03-31 12:00] VITALS: BP 116/81
[2017-03-31] MEDS ORDERED: NEO/POLY/BAC (NEOSPORIN) OINT 15 GM TUBE TOP PRN (13:15)
[2017-03-31 18:34] VITALS: BP 144/96
[2017-03-31 19:45] VITALS: BP 117/78
[2017-03-31] MEDS: MELATONIN 10 MG TAB PO SCH (20:33)
[2017-03-31] MEDS: PRAVASTATIN 20 MG (PRAVACHOL) TAB PO SCH (20:34)
[2017-03-31] MEDS: doxAzosin 4 MG (CARDURA) TAB PO SCH (20:35)
[2017-03-31] MEDS: ESZOPICLONE 3 MG PO PRN (20:41)
[2017-04-01 06:00] VITALS: BP 124/77
[2017-04-01 08:30] VITALS: BP 100/63
[2017-04-01] MEDS: meTOprolol TARTRATE 25 MG (LOPRESSOR) TABLET PO SCH (08:34)
[2017-04-01] MEDS: METFORMIN 1000 MG PO SCH (08:36)
[2017-04-01] MEDS: ENALAPRIL 10 MG (VASOTEC) TAB PO SCH (08:36)
[2017-04-01] MEDS: PANTOPRAZOLE 40 MG (PROTONIX) TAB PO SCH (08:38)
[2017-04-01] MEDS: ESCITALOPRAM 10 MG PO SCH (08:39)
--- NOTE | 2017-04-01 10:06 | Discharge Summary-Hospitalist ---
Diagnosis/Chief Complaint Date of Admission March 30, 2017 at 13:29 Date of Discharge Admission Diagnosis Assessment: Syncope possibly due to vasovagal from volume depletion from severe anemia hemoglobin 9.5 now 8.4 giving rise to transfusion of 2 units of packed red blood cells requirement recommended by cardiology Event monitor undergoing evaluation for possible need of pacemaker placement if this was some sort of asystole or other type of cardiac arrhythmia causing the syncopal episode Recent GI bleed with continued Hemoccult-positive stools placing Plavix on hold since risk outweigh benefits Coronary artery disease previous bypass surgery Diabetes mellitus Hypertension Recent stroke with resolution of symptoms Discharge Diagnosis Assessment: Syncope possibly due to vasovagal from volume depletion from severe anemia hemoglobin 9.5 on admit then decreased to 8.4 giving rise to s/p transfusion of 2 units of packed red blood cells requirement recommended by cardiology now 10.2 Event monitor undergoing evaluation for possible need of pacemaker placement if this was some sort of asystole or other type of cardiac arrhythmia causing the syncopal episodes x 2 in process of reviewing event monitor today to decide whether he needs pacemaker before DC or just DC w/further testing as an outpt Recent GI bleed with continued Hemoccult-positive stools placing Plavix on hold since risks outweigh benefits Coronary artery disease previous bypass surgery Diabetes mellitus Hypertension Recent stroke with resolution of symptoms but cannot tolerate anti-platelet therapy due to occult GIB and causing severe anemia resulting in transfusion yesterday of 2 units Reason Hospital Visit/Course CC: Syncope HPI: This is a 71yoWM known to me from recent hospitalization for syncope from subacute stroke with GI Bleed that was found to be from mild duodenitis after scopes performed by Dr Hare during last hospital stay. Due to active bleeding he was not a candidate for thrombolytics and his symptoms from the subacute acute stroke resolved at time of discharge. He was placed on Plavix after much debate among cardiology and general surgery and it appeared that the benefits outweighed the medical risk of adding that antiplatelet therapy so he was discharged on Plavix seen in close follow-up with primary care provider Dr. Dent was placed on iron therapy since his hemoglobin was 9.5 at discharge. He presented to the emergency room at [facility] yesterday afternoon after syncopal episode sustained a mild first-degree burn on his hand during the fall while in his kitchen and had a workup at [place] showing Hemoccult positive stools and hemoglobin of 9.5. Dr. Stevens Chandan consultation and recommended blood transfusion due to decreased hemoglobin of 8.4 so that was ordered as recommended and event monitor will be shipped overnight to evaluate whether or not the event that caused the syncope requires a pacemaker placement and will be monitored from that standpoint from cardiology. Dr. Hare will see the patient consultation due to the continued Hemoccult positive stools and I have assessed the Plavix to be too high of risk outweighing the benefits of that medication and will continue the rest of his home medications. Note from 03/30/17: Patient doing much better and having no other syncopal episodes Had no complications when given 2 units of blood transfusion yesterday and now his hemoglobin doing very well at 10. I have held Plavix due to intolerance to antiplatelets therapy due to occult GI bleeding Patient denies any pain No fever, vital signs stable, pleasant, at bedside Regular rate and rhythm, clear to auscultation bilaterally No edema Hospital course: Patient had an uneventful hospital course he did receive 2 units of packed red blood cells after cardiology recommended that considering his hemoglobin was getting so low giving rise to more evidence of vasovagal syncope but event monitor was removed and sent off for results since that was in place during the syncopal event but those results would not be back until Saturday. I have proposed to cardiology to place Holter monitor prior to discharge today since she was feeling well and to return if he had any other events but this would resolve the syncope if it was vasovagal due to severe anemia and dehydration which is a strong possibility but if this was some sort of cardiac arrhythmia he will need additional loop recorder implantation or a pacemaker. I did give him 1 dose of Venofer iron prior to discharge because his iron level was 12 and he will maintain his oral iron twice daily as instructed by Dr. Dent. note from 04/01/17: Patient doing much better and event monitor is yet to be reviewed by cardiology and he will decide with the pacemaker is placed today or tomorrow and then discharged home No bloody stools reported No strokelike symptoms since stopping Plavix No fever, vital signs stable, pleasant, at bedside Regular rate and rhythm, clear to auscultation bilaterally No edema Hospital course: Patient had no events during hospitalization an event recorder reviewed by cardiology showed no evidence of any type of asystole or significant arrhythmia so he will be followed up with the loop recorder implantation since he is high risk for cardiac arrhythmia and monitor closely in the meantime. Discharge Summary Discharge Physical Examination Allergies: Coded Allergies: Cvgkwba-Oix-Kwa Reductase Inhibitor (Verified Allergy, Unknown, 01/29/17) cephalexin (Verified Allergy, Unknown, 03/12/17) ciprofloxacin (Verified Allergy, Unknown, 03/12/17) citalopram (Verified Allergy, Unknown, 03/12/17) levofloxacin (Verified Allergy, Unknown, 01/29/17) metoclopramide HCl (Verified Allergy, Unknown, 01/29/17) sulfamethoxazole (Verified Allergy, Unknown, 03/12/17) trazodone (Unverified Allergy, Unknown, 03/13/17) trimethoprim (Verified Allergy, Unknown, 03/12/17) Vitals & I&Os Vital Signs Date Time Temp Pulse Resp B/P (MAP) Pulse Ox O2 Delivery O2 Flow Rate FiO2 04/01/17 08:30 98.0 63 18 100/63 97 Hospital Course Labs (last 24 hrs) Pending Labs Discharge Home Medications: Active Scripts Active Reported [Garamycin/Decadron] 2 Sprays NS BID PRN RECEIVES FROM DR. PURCELL'S OFFICE Redness Relief Eye Drops (Naphazoline HCl/Glycerin) 15 Ml Drops 1-2 Drops OU TID PRN [place] Saline Nasal Gel (Sodium Chloride/Aloe Vera) 14.1 Gm Gel..gram. TP TID PRN Ferrex 150 (Iron Polysaccharide Complex) 150 Mg Capsule 150 Mg PO BID [place] Saline (Sodium Chloride) 50 Ml Drops 2 Sprays NS TID PRN Melatonin-Lemon [place] Tablet (Melatonin/Lemon [place] Extr) 1 Each Tablet 10 Mg PO HS Claritin-D 12 Hour Tablet (Loratadine/Pseudoephedrine) 1 Each Tab.er.12h 1 Tab PO DAILY PRN Eszopiclone 3 Mg Tablet 3 Mg PO HS Pravastatin Sodium 20 Mg Tablet 20 Mg PO HS Fluticasone Propionate 16 Gm [place].susp 2 [place] NS BID PRN Pantoprazole Sodium 40 Mg Tablet.dr 40 Mg PO DAILY Escitalopram Oxalate 10 Mg Tablet 10 Mg PO DAILY Metformin HCl 1,000 Mg Tablet 500 Mg PO BID TAKES 1/2 (1000MG) TABLET Tylenol (Acetaminophen) 500 Mg Tablet 1,000 Mg PO BID PRN TAKES 2 (500MG) TABLETS Colace (Docusate Sodium) 100 Mg Capsule 200-300 Mg PO TID PRN Instructions to patient/family Please see electonic discharge instructions given to patient. Clinical Quality Measures DVT/VTE Risk/Contraindication: Risk Factor Score Per Nursin RFS Level Per Nursing on Admit: 2=Moderate MIKI WALSH DO April 01, 2017 10:06
[2017-04-01] MEDS: IRON SUCROSE INJECTION 200 MG in NS (IVPB) 100 ML IV SCH (10:22)
--- NOTE | 2017-04-01 13:05 | Cardiology Progress Note ---
Cardiology SOAP Progress Note Subjective: no symptoms Objective: I&O/Vital Signs Vital Sign - Last 12Hours 04/01/17 04/01/17 04/01/17 04/01/17 01:00 04:00 06:00 07:00 Temp 98.1 Pulse 58 57 57 53 Resp 20 B/P (MAP) 124/77 Pulse Ox 99 04/01/17 04/01/17 07:49 08:30 Temp 98.0 Pulse 63 Resp 18 B/P (MAP) 100/63 Pulse Ox 96 97 Intake and Output 04/01/17 00:00 Intake Total 675 ml Output Total 300 ml Balance 375 ml Weight (Pounds): 156 Weight (Ounces): 0.3 Weight (Calculated Kilograms): [id number] Constitutional: AAO x 3, well-developed, well-nourished Respiratory: No accessory muscle use, lungs clear to percussion, lungs clear to auscultation Cardiovascular: regular rate-rhythm, S1 and S2, systolic murmur (faint ANNAMARIA ) Gastrointestional: No tender, soft, No guarding, No rebound, audible bowel sounds Extremities: No normal range of motion, No non-tender, No normal inspection, No pedal edema, No calf tenderness, No normal capillary refill, No pelvis stable , No calf tenderness, No inflammation, No pedal edema, No slow capillary refill , No swelling, No other, No abrasion, No clubbing, No cyanosis, No ecchymosis, No laceration, No no lower extremity edema bilateral, No significant edema, No tenderness, No wound Neurologic/Psychiatric: oriented x 3, grossly intact, power is 5/5 both on sides Skin: No normal color, No warm/dry, No cyanosis, No cool, No diaphoresis, No damp, No ecchymosis, No jaundice, No mottled, No pallor, No rash, No tattoos/ piercings, No ulcerations, No rash on exposed areas, No ulcerations on exposed areas, other (R hand under dressing) Results/Procedures: Labs Laboratory Tests 03/31/17 17:53: Hemoglobin 10.6L, Hematocrit 34L 04/01/17 03:56: Hemoglobin 10.2L, Hematocrit 32L A/P: Assessment/Dx: 1. unexplained syncope. 2. History of coronary artery disease, status post CABG Plan: this is 71-year-old gentleman who has history of coronary artery disease. However recent nuclear stress test did not show any infarct or ischemia. He presents with unexplained syncope. EKG is normal. Orthostatics showed blood pressure at lying down 126/79 mmHg, sitting 139/86 mmHg, standing 144/89 mmHg. No change in heart rate. event monitor report was available today. It shows sinus bradycardia at 45 bpm and brief episode of Wenckebach phenomenon at the time of syncope. No high grade AV block is noted. Patient had a brief 4 beat run of nonsustained VT. Numerous runs of SVT/atrial tachycardia is noted. The patient's blood pressure this morning was systolic 100 mmHg. He is on enalapril 5 mg twice a day and Cardura. He also has anemia with initial hemoglobin of 8 requiring transfusions. It is likely that his syncopal episode was a combination of overmedication with Cardura and enalapril, dehydration, anemia due to possible GI bleeding and sinus bradycardia with brief episode of Wenckebach phenomenon. We will discontinue Cardura as well as enalapril. He has received transfusion and therefore his anemia has been corrected. Good hydration has been recommended. We will give another 30 day event monitor. If by doing all the above he still has further episodes of symptomatic second-degree AV block type I , we will have a low threshold for placing a permanent pacemaker. We will avoid beta blockers for now. the patient will follow-up with Dr. Stevens on Saturday. I have discussed the plan with Dr. Stevens as well. Since the patient had a cryptogenic stroke and was on an event monitor. event monitor shows numerous episodes of atrial tachycardia/SVT. This may suggest atrial fibrillation. The patient will be a candidate for oral anticoagulation therapy. However, the patient has had GI bleeding in the last 2 weeks with significant anemia with hemoglobin of 8 requiring transfusions. He did have upper and lower endoscopy. He is scheduled to follow-up with Dr. Hare on Saturday. He has specifically requested Dr. Hare to command on his suitability for Eliquis therapy. For now we have decided not to start Eliquis did get an opinion. nonsustained VT: In a patient with previous CABG and normal EF, the usual therapy is beta blockers. However we're holding beta blockers secondary to sinus bradycardia and episode of Wenckebach phenomenon and syncope. However, since he requires beta kevin that may be another reason for having a low threshold for permanent pacemaker implantation in the future. Over 60 minutes were spent taking care of the patient today. Thank you for your consultation. Please call me if you have any questions. Genie Vallejo MD, FACP, FACC, FSCAI, FHRS, CCDS Interventional Cardiology Cardiac Electrophysiology Vascular Medicine and Endovascular Interventions Demetra VALLEJO MD April 01, 2017 1:05 pm
== END 2017-04-01 13:15 | disposition home or self-care (01) | DRG 312 ==
LOC: ICU 16:25 → UNDOADMOB 16:25 → ICU 16:30 → OBSVTOIN 03-30 13:29
PROVIDERS: ADMIT Internal Medicine; ATTEND Internal Medicine
DX: R55 Syncope and collapse (principal); I69.398 Other sequelae of cerebral infarction; K92.1 Melena; D64.9 Anemia, unspecified; I10 Essential (primary) hypertension; E86.0 Dehydration; N40.1 Benign prostatic hyperplasia with lower urinary tract symptoms; I25.10 Atherosclerotic heart disease of native coronary artery without angina pectoris; Z95.1 Presence of aortocoronary bypass graft; E78.5 Hyperlipidemia, unspecified; E11.43 Type 2 diabetes mellitus with diabetic autonomic (poly)neuropathy; F32.9 Major depressive disorder, single episode, unspecified; K58.9 Irritable bowel syndrome, unspecified; G47.30 Sleep apnea, unspecified; I65.23 Occlusion and stenosis of bilateral carotid arteries; R10.31 Right lower quadrant pain; Z95.5 Presence of coronary angioplasty implant and graft; T23.151A Burn of first degree of right palm, initial encounter; X15.0XXA Contact with hot stove (kitchen), initial encounter; Y93.G3 Activity, cooking and baking; Y92.010 Kitchen of single-family (private) house as the place of occurrence of the external cause; T31.0 Burns involving less than 10% of body surface
CPT/HCPCS: 36415; 80048; 80053; 83540; 85007; 85014; 85018; 85025; 85027; 86850; 86900; 86901; 86920; 94760; 99211; G0378

== ENCOUNTER → 2017-04-10 | Outpatient (CLI) | payer MEDICARE, OTHER ==
[~2017-04-10] MED LIST changes: +CLOP75TA69 PO; +DEXAMETHASONE NS; +GENTAMICIN NS; +IRON150C3 PO; +MELA1TAB35 PO; +SODI14.12 TP; +SODI50DR NS; +[UNRECOGNIZED DRUG - CODE] OU
[2017-04-10 10:17] LABS: BASOPHILS % (AUTO) 1 % (0-10); EOSINOPHILS # (AUTO) 0.2 10^3/uL (0.0-0.3); EOSINOPHILS % (AUTO) 3 % (0-10); LYMPHOCYTES % (AUTO) 18 % (12-44); MEAN CORPUSCULAR HEMOGLOBIN 26 PG (25-34); MEAN CORPUSCULAR HGB CONC 31 G/DL (32-36); MEAN CORPUSCULAR VOLUME 82 FL (80-99); MEAN PLATELET VOLUME 12.1 FL (7.4-10.4); MONOCYTES # (AUTO) 0.6 X 10^3 (0.0-1.0); MONOCYTES % (AUTO) 11 % (0-12); NEUTROPHILS # (AUTO) 3.9 X 10^3 (1.8-7.8); NEUTROPHILS % (AUTO) 69 % (42-75); PLATELET COUNT 194 10^3/uL (130-400); RED BLOOD COUNT 4.46 10^6/uL (4.35-5.85); RED CELL DISTRIBUTION WIDTH 17.8 % (10.0-14.5); WHITE BLOOD COUNT 5.7 10^3/uL (4.3-11.0)
== END ==
LOC: LAB 09:49
PROVIDERS: ATTEND Surgery
DX: D64.9 Anemia, unspecified (principal)
CPT/HCPCS: 36415; 85025

== ENCOUNTER 2017-04-26 07:02 | Outpatient (RCR) | payer MEDICARE, OTHER | END 2017-07-02 | disposition home or self-care (01) | LOC: CARD 07:02 | PROVIDERS: ATTEND Internal Medicine Interventional Cardiology | DX: R55 Syncope and collapse (principal); I25.10 Atherosclerotic heart disease of native coronary artery without angina pectoris; Z95.1 Presence of aortocoronary bypass graft | CPT/HCPCS: 93270 ==

== ENCOUNTER → 2020-05-16 | Outpatient (CLI) | payer MEDICARE, OTHER ==
[~2020-05-16] MED LIST changes: -ESZO3TAB38 PO; +ESZO3TAB39 PO; +METF-399 PO; -METF1000 PO; -OXYC-197 PO; +OXYC1TAB87 PO; +SODI0.5GEL TP; -SODI14.12 TP
== END ==
LOC: CARD 08:51
PROVIDERS: ATTEND Internal Medicine Cardiovascular Disease
DX: I25.10 Atherosclerotic heart disease of native coronary artery without angina pectoris (principal); I65.29 Occlusion and stenosis of unspecified carotid artery; E11.9 Type 2 diabetes mellitus without complications; I10 Essential (primary) hypertension; E78.5 Hyperlipidemia, unspecified; I48.0 Paroxysmal atrial fibrillation; Z86.79 Personal history of other diseases of the circulatory system; Z87.891 Personal history of nicotine dependence
CPT/HCPCS: 93306

== ENCOUNTER → 2020-05-17 | Outpatient (CLI) | payer MEDICARE, OTHER ==
[~2020-05-17] VITALS: Ht 173 cm; Wt 66.0 kg
[~2020-05-17] MED LIST changes: +CATHETER FLUSH 10 ML SYR IV PRN; +REGADENOSON 0.4 MG/5 ML SYR (LEXISCAN) IV ONE
--- NOTE | 2020-05-17 12:36 | STRESS TEST ---
DATE OF SERVICE: 05/17/2020 RESTING AND POST REGADENOSON TECHNETIUM-99M TETROFOSMIN SPECT CT IMAGING ORDERING PHYSICIAN: Dr. Stevens. PRIMARY PHYSICIAN: Dr. Dent. CLINICAL DIAGNOSES: Coronary artery disease, hypertension and hyperlipidemia. Baseline images were carried out after injection of 10.92 mCi of technetium-99m Tetrofosmin. This was followed by 0.4 mg Regadenoson and 32.1 mCi of technetium-99m Tetrofosmin for stress imaging. The electrocardiogram showed sinus rhythm at baseline. It did not change significantly with the Regadenoson infusion. The patient tolerated the procedure well. Review of images at rest and following stress does not indicate any significant perfusion defects consistent with myocardial ischemia or infarction. Gated images show normal global left ventricular systolic function, normal regional, left ventricular ejection fraction is calculated to be 68%. Left ventricular end diastolic volume is 60 mL. TID is absent (0.97). CONCLUSIONS: 1. No evidence of any significant myocardial ischemia or infarction on this study. 2. Normal regional wall motion. 3. Normal global left ventricular systolic function with a calculated ejection fraction of 68%. Job ID: [id number] DocumentID: [id number] Dictated Date: 05/17/2020 11:58:28 Machine Stapler Date: 05/17/2020 12:35:37 Dictated By: APRIL STEVENS MD, MA, FACP, FACC,
== END ==
LOC: CARD 07:24
PROVIDERS: ATTEND Internal Medicine Cardiovascular Disease
DX: I25.10 Atherosclerotic heart disease of native coronary artery without angina pectoris (principal); E78.5 Hyperlipidemia, unspecified; I10 Essential (primary) hypertension; I65.23 Occlusion and stenosis of bilateral carotid arteries; E11.9 Type 2 diabetes mellitus without complications; I48.0 Paroxysmal atrial fibrillation; Z86.79 Personal history of other diseases of the circulatory system; Z87.891 Personal history of nicotine dependence
CPT/HCPCS: 78452; 93017; A9502